=== PATIENT | male | born 1975 | race African-American/Black ===

== ENCOUNTER 2017-12-26 21:42 | Inpatient (IN) | payer BC ==
[2017-12-26 22:32] LABS: Absolute Lymphocytes (CBC) 1.8 K/uL (0.7-4.9); Absolute Monocytes 0.6 K/uL (0.1-1.3); Absolute Neutrophil 7.9 K/uL (1.8-8.0); Basophils % 1.4 % (0-1.3); Eosinophils % 4.4 % (0-4.4); Hematocrit 30.7 % (39.6-49.0); Lymphocytes % 16.2 % (15.3-44.8); MCH 33.3 pg (27.0-35.0); MCV 97.2 fL (80-100); MPV 8.8 fL (7.6-11.3); Monocytes % 5.4 % (3.3-12.3); RBC Red Blood Cell Count 3.16 M/uL (4.33-5.43)
[2017-12-26] MEDS ORDERED: FUROSEMIDE 40 MG/4 ML VIAL ONE (22:33)
[2017-12-26] MEDS ORDERED: ENALAPRILAT 1.25 MG/ML VIAL IV ONE (22:33)
[2017-12-26 22:34] LABS: Protime INR 1.12
[2017-12-26 22:51] LABS: Bilirubin Direct 0.2 mg/dL (0-0.2); Bilirubin Total 0.9 mg/dL (0.2-1.0); Magnesium 1.7 mg/dL (1.8-2.4); Potassium 3.6 mmol/L (3.5-5.1); Protein, Total 6.6 g/dL (6.4-8.2); Troponin (Emerg Dept Use Only) 0.04 ng/mL (0.0-0.045)
[2017-12-26 22:53] LABS: Urine Blood 2+ (NEG); Urine Glucose NEGATIVE (NEG); Urine Protein 3+ (NEG); Urine Specific Gravity 1.025 (1.005-1.030)
--- NOTE | 2017-12-27 00:46 | EDPHYS ---
Physician Documentation [facility] Name: Fredy Acosta Age: 42 yrs Sex: Male : 1975 Arrival Date: 12/26/2017 Time: 21:46 Bed 2 Private MD: Tony Bradley ED Physician Duncan Scott HPI: 12/27 00:37 This 42 yrs old Black Male presents to ER via Wheelchair with complaints of Chest Pain, gs Shortness Of Breath. 00:37 The patient or guardian reports chest pain that is located primarily in the anterior gs chest wall. Onset: yesterday. The pain does not radiate. Associated signs and symptoms: Pertinent positives: shortness of breath, Pertinent negatives: abdominal pain. The chest pain is described as a heaviness. Duration: The patient or guardian reports multiple episodes, that wax and wane, with no pattern. Modifying factors: The symptoms are alleviated by nothing. the symptoms are aggravated by exertion. Severity of pain: At its worst the pain was mild in the emergency department the pain is unchanged. The patient has experienced similar episodes in the past, a few times. Historical: - Allergies: 12/26 22:04 No Known Allergies; aj - Home Meds: 22:04 amlodipine 5 mg tab 1 tab once daily [Active]; insulin pen injection [Active]; aj lisinopril 10 mg Oral tab 1 tab once daily [Active]; - PMHx: 22:04 Anxiety; Diabetes - IDDM; Hypertension; aj - PSHx: 22:04 Knee surgery; aj - Immunization history:: Adult Immunizations up to date. - Social history:: Smoking status: Patient/guardian denies using tobacco. - Ebola Screening: : Patient negative for fever greater than or equal to 101.5 degrees Fahrenheit, and additional compatible Ebola Virus Disease symptoms Patient denies exposure to infectious person Patient denies travel to an Ebola-affected area in the 21 days before illness onset No symptoms or risks identified at this time. ROS: 12/27 00:37 All other systems are negative. gs Exam: 00:37 Head/Face: Normocephalic, atraumatic. Eyes: Pupils equal round and reactive to light, gs extra-ocular motions intact. Lids and lashes normal. Conjunctiva and sclera are non-icteric and not injected. Cornea within normal limits. Periorbital areas with no swelling, redness, or edema. ENT: Nares patent. No nasal discharge, no septal abnormalities noted. Tympanic membranes are normal and external auditory canals are clear. Oropharynx with no redness, swelling, or masses, exudates, or evidence of obstruction, uvula midline. Mucous membranes moist. Neck: Trachea midline, no thyromegaly or masses palpated, and no cervical lymphadenopathy. Supple, full range of motion without nuchal rigidity, or vertebral point tenderness. No Meningismus. Chest/axilla: Normal chest wall appearance and motion. Nontender with no deformity. No lesions are appreciated. 00:37 Respiratory: Lungs have equal breath sounds bilaterally, clear to auscultation and percussion. No rales, rhonchi or wheezes noted. No increased work of breathing, no retractions or nasal flaring. Abdomen/GI: Soft, non-tender, with normal bowel sounds. No distension or tympany. No guarding or rebound. No evidence of tenderness throughout. Back: No spinal tenderness. No costovertebral tenderness. Full range of motion. 00:37 Skin: Warm, dry with normal turgor. Normal color with no rashes, no lesions, and no evidence of cellulitis. MS/ Extremity: Pulses equal, no cyanosis. Neurovascular intact. Full, normal range of motion. Neuro: Awake and alert, GCS 15, oriented to person, place, time, and situation. Cranial nerves II-XII grossly intact. Motor strength 5/5 in all extremities. Sensory grossly intact. Cerebellar exam normal. Normal gait. 00:37 Constitutional: The patient appears alert, awake. 00:37 Cardiovascular: Rate: tachycardic, Rhythm: regular, Pulses: no pulse deficits are appreciated, Heart sounds: normal. 00:37 Cardiovascular: Edema: 2+ edema to level of left midcalf and right midcalf. 00:37 ECG was reviewed by the Attending Physician. Vital Signs: 12/26 22:04 BP 186 / 119; Pulse 109; Resp 26; Temp 99.6; Pulse Ox 97% on R/A; Weight 108.86 kg; aj Height 5 ft. 7 in. (170.18 cm); 22:24 BP 170 / 110; Pulse 104; Resp 26; Pulse Ox 93% on R/A; aa1 23:20 BP 152 / 94; Pulse 100; Resp 22; Pulse Ox 96% on R/A; aa1 23:57 BP 156 / 96; Pulse 98; Resp 22; Pulse Ox 96% on R/A; aa1 12/27 00:30 BP 157 / 103; Pulse 96; Resp 22; Pulse Ox 96% on R/A; aa1 01:20 BP 150 / 90; Pulse 93; Resp 24; Temp 98.9; Pulse Ox 95% on R/A; aa1 12/26 22:04 Body Mass Index 37.59 (108.86 kg, 170.18 cm) aj MDM: 12/26 22:11 Patient medically screened. 12/27 00:37 Differential diagnosis: acute myocardial infarction, coronary artery disease congestive gs heart failure pneumonia. Data reviewed: vital signs, nurses notes. Response to treatment: the patient's symptoms have resolved after treatment, the patient's pain is gone, and as a result, I will admit patient. 12/26 22:14 Order name: Basic Metabolic Panel; Complete Time: 22:58 12/26 22:14 Order name: CBC with Diff; Complete Time: 22:58 12/26 22:14 Order name: LFT's; Complete Time: 22:58 12/26 22:14 Order name: Magnesium; Complete Time: 22:58 12/26 22:14 Order name: NT PRO-BNP; Complete Time: 22:58 12/26 22:14 Order name: PT-INR; Complete Time: 22:58 12/26 22:14 Order name: Troponin (emerg Dept Use Only); Complete Time: 22:58 12/26 22:14 Order name: XRAY Chest (1 view) 12/26 22:14 Order name: EKG; Complete Time: 22:14 12/26 22:14 Order name: Cardiac monitoring; Complete Time: 22:24 12/26 22:33 Order name: Urine Dipstick--Ancillary (enter results); Complete Time: 22:58 [facility] 12/27 00:50 Order name: CT Chest For PE Angio 12/26 22:14 Order name: EKG - Nurse/Tech; Complete Time: 22:24 12/26 22:14 Order name: IV Saline Lock; Complete Time: 22:24 12/26 22:14 Order name: Labs collected and sent; Complete Time: 22:23 12/26 22:14 Order name: O2 Per Protocol; Complete Time: : 12/26 22:14 Order name: O2 Sat Monitoring; Complete Time: 12/26 21: Order name: Urine Dipstick-Ancillary (obtain specimen); Complete Time: : EC:37 Rate is 109 beats/min. Rhythm is regular. NV interval is normal. QRS interval is gs normal. QT interval is normal. T waves are Flattened. Clinical impression: NSR w/ Non-specific ST/T Changes. Interpreted by me. Administered Medications: 12/26 22:34 Drug: Lasix 40 mg Route: IVP; Site: right antecubital; aa 12/27 02:05 Follow up: Urine output 4000 ml; Response: No adverse reaction aa 12/26 22:34 Drug: Enalaprilat 1.25 mg Route: IV; Rate: calculated rate; Site: right antecubital; aa 22:36 Follow up: Response: Blood pressure is lowered; IV Status: Completed infusion aa1 Disposition: 12/27/17 00:46 Hospitalization ordered by John Cronin for Inpatient Admission. Preliminary diagnosis are Heart failure, Chest pain, unspecified. - Bed requested for Telemetry/MedSurg (Inpatient). - Status is Inpatient Admission. aa1 - Condition is Stable. - Problem is new. - Symptoms have improved. UTI on Admission? No Signatures: Dispatcher [employer] EDMS Manuela Duarte RN RN Carolyn Morrison RN RN [facility] Bhakti Cedillo RN RN aj Starr, Gregory, MD MD Corrections: (The following items were deleted from the chart) 12/27 00:53 00:46 Hospitalization Ordered by John Cronin MD for Inpatient Admission. Preliminary winsome diagnosis is Heart failure; Chest pain, unspecified. Bed requested for Telemetry/MedSurg (Inpatient). Status is Inpatient Admission. Condition is Stable. Problem is new. Symptoms have improved. UTI on Admission? No. 02:11 00:53 12/27/2017 00:46 Hospitalization Ordered by John Cronin MD for Inpatient aa1 Admission. Preliminary diagnosis is Heart failure; Chest pain, unspecified. Bed requested for Telemetry/MedSurg (Inpatient). Status is Inpatient Admission. Condition is Stable. Problem is new. Symptoms have improved. UTI on Admission? No. mw
--- NOTE | 2017-12-27 00:46 | ER ---
Nurse's Notes [facility] Name: Fredy Acosta Age: 42 yrs Sex: Male : 1975 Arrival Date: 12/26/2017 Time: 21:46 Bed 2 Private MD: Tony Bradley Diagnosis: Heart failure;Chest pain, unspecified Presentation: 12/26 22:03 Presenting complaint: Patient states: SOB, cough, chest tightness for 1 week. Reports aj swelling in feet and legs. Transition of care: patient was not received from another setting of care. Onset of symptoms was December 16, 2017. Risk Assessment: Do you want to hurt yourself or someone else? Patient reports no desire to harm self or others. Initial Sepsis Screen: Does the patient meet any 2 criteria? RR > 20 per min. HR > 90 bpm. Does the patient have a suspected source of infection? Yes: Productive cough/pneumonia. Care prior to arrival: None. 22:03 Method Of Arrival: Wheelchair aj 22:03 Acuity: NGA 3 aj Triage Assessment: 22:04 General: Appears in no apparent distress. uncomfortable, obese, Behavior is calm, aj cooperative, appropriate for age. Pain: Complains of pain in chest. Neuro: Level of Consciousness is awake, alert, obeys commands, Oriented to person, place, time, situation, Appropriate for age. Cardiovascular: Capillary refill < 3 seconds in bilateral fingers Patient's skin is warm and dry. Edema is 2+ to left midcalf, left ankle, left foot, right midcalf, right ankle and right foot. Respiratory: Reports shortness of breath cough that is productive, pain with cough Airway is patent Respiratory effort is even, unlabored, Respiratory pattern is symmetrical, tachypnea Breath sounds are coarse bilaterally. Derm: Skin is intact, is healthy with good turgor, Skin is pink, warm \T\ dry. normal. Historical: - Allergies: 22:04 No Known Allergies; aj - Home Meds: 22:04 amlodipine 5 mg tab 1 tab once daily [Active]; insulin pen injection [Active]; aj lisinopril 10 mg Oral tab 1 tab once daily [Active]; - PMHx: 22:04 Anxiety; Diabetes - IDDM; Hypertension; aj - PSHx: 22:04 Knee surgery; aj - Immunization history:: Adult Immunizations up to date. - Social history:: Smoking status: Patient/guardian denies using tobacco. - Ebola Screening: : Patient negative for fever greater than or equal to 101.5 degrees Fahrenheit, and additional compatible Ebola Virus Disease symptoms Patient denies exposure to infectious person Patient denies travel to an Ebola-affected area in the 21 days before illness onset No symptoms or risks identified at this time. Screenin:35 Abuse screen: Denies injuries from another. Abuse screen: Denies threats or abuse. aa1 Nutritional screening: No deficits noted. Tuberculosis screening: No symptoms or risk factors identified. Fall Risk None identified. Assessment: 22:35 General: Appears in no apparent distress. comfortable, Behavior is calm, cooperative, aa1 appropriate for age. Pain: Complains of pain in chest Pain does not radiate. Pain Quality of pain is described as pressure, Pain began 1 day ago. Is intermittent, Aggravated by increased activity, laying flat. Neuro: Level of Consciousness is awake, alert, obeys commands, Oriented to person, place, time, situation, Gait is steady, Speech is normal. Cardiovascular: Reports chest pain, shortness of breath, on exertion and when laying flat Heart tones S1 S2 present Capillary refill < 3 seconds Clubbing of nail beds is absent JVD is absent Patient's skin is warm and dry. Edema is 2+ to left ankle, left foot, left toes, right ankle, right foot and right toes Rhythm is regular. Respiratory: Reports shortness of breath on exertion Airway is patent Respiratory effort is even, unlabored, Respiratory pattern is regular, symmetrical, Breath sounds are coarse bilaterally. GI: No signs and/or symptoms were reported involving the gastrointestinal system. : No signs and/or symptoms were reported regarding the genitourinary system. EENT: No signs and/or symptoms were reported regarding the EENT system. Derm: Skin is intact, is healthy with good turgor, Skin is pink, warm \T\ dry. Musculoskeletal: Circulation, motion, and sensation intact. Capillary refill < 3 seconds, Swelling present in right foot and left foot. 23:21 Reassessment: Patient appears in no apparent distress at this time. Patient and/or aa1 family updated on plan of care and expected duration. Pain level reassessed. Patient is alert, oriented x 3, equal unlabored respirations, skin warm/dry/pink. Awaiting provider reassessment. 12/27 01:17 Reassessment: Patient appears in no apparent distress at this time. Patient and/or aa1 family updated on plan of care and expected duration. Pain level reassessed. Patient is alert, oriented x 3, equal unlabored respirations, skin warm/dry/pink. Bed assignment received. Awaiting admission orders from Dr. Cronin. 01:25 Reassessment: Pt taken to CT. aa1 02:07 Reassessment: Patient appears in no apparent distress at this time. Patient is alert, aa1 oriented x 3, equal unlabored respirations, skin warm/dry/pink. Report given to Prudence on 4th floor. Vital Signs: 12/26 22:04 BP 186 / 119; Pulse 109; Resp 26; Temp 99.6; Pulse Ox 97% on R/A; Weight 108.86 kg; aj Height 5 ft. 7 in. (170.18 cm); 22:24 BP 170 / 110; Pulse 104; Resp 26; Pulse Ox 93% on R/A; aa1 23:20 BP 152 / 94; Pulse 100; Resp 22; Pulse Ox 96% on R/A; aa1 23:57 BP 156 / 96; Pulse 98; Resp 22; Pulse Ox 96% on R/A; aa1 12/27 00:30 BP 157 / 103; Pulse 96; Resp 22; Pulse Ox 96% on R/A; aa1 01:20 BP 150 / 90; Pulse 93; Resp 24; Temp 98.9; Pulse Ox 95% on R/A; aa1 12/26 22:04 Body Mass Index 37.59 (108.86 kg, 170.18 cm) ED Course: 12/26 21:46 Patient arrived in ED. ds1 21:47 Tony Bradley MD is Private Physician. ds1 21:59 Duncan Scott MD is Attending Physician. gs 22:00 Patient maintains SpO2 saturation greater than 95% on room air. aa1 22:04 Triage completed. aj 22:04 Arm band placed on left wrist. Patient placed in an exam room. aj 22:06 EKG completed in triage. Results shown to MD. aj 22:08 Initial lab(s) drawn, by ED staff, sent to lab. EKG done, by ED staff, reviewed by aa1 Duncan Scott MD. Inserted saline lock: 20 gauge in right antecubital area, using aseptic technique. 22:10 Patient has correct armband on for positive identification. Bed in low position. Call aa1 light in reach. ekg monitor on. Pulse ox on. NIBP on. 22:23 Carolyn Morrison, RN is Primary Nurse. aa1 22:51 XRAY Chest (1 view) In Process Unspecified. EDMS 12/27 00:45 John Cronin MD is Hospitalizing Provider. gs 01:23 No provider procedures requiring assistance completed. Patient admitted, IV remains in aa1 place. 01:[address] via stretcher. kw1 01:48 CT completed. Patient tolerated procedure well. Patient moved back from CT. kw1 Administered Medications: 12/26 22:34 Drug: Lasix 40 mg Route: IVP; Site: right antecubital; aa1 12/27 02:05 Follow up: Urine output 4000 ml; Response: No adverse reaction aa1 12/26 22:34 Drug: Enalaprilat 1.25 mg Route: IV; Rate: calculated rate; Site: right antecubital; aa1 22:36 Follow up: Response: Blood pressure is lowered; IV Status: Completed infusion aa1 Output: 12/27 02:05 Urine: 4000ml; Total: 4000ml. aa1 Outcome: 00:46 Decision to Hospitalize by Provider. 02:10 Admitted to Tele accompanied by tech, family with patient, via wheelchair, room 428, aa1 with chart, Report called to Prudence 02:10 Condition: stable 02:10 Instructed on the need for admit, Demonstrated understanding of instructions. 02:11 Patient left the ED. aa1 Signatures: Dispatcher [employer] EDPR Carolyn Morrison RN RN aa1 Bhakti Cedillo RN RN aj Sanford, Demi ds1 Duncan Scott MD MD Aliya Nicholson kw1 Corrections: (The following items were deleted from the chart) 02:08 01:20 BP 150 / 90; Pulse 93bpm; Resp 24bpm; Pulse Ox 95% RA; aa1 aa1
[2017-12-27] MEDS ORDERED: ONDANSETRON 4 MG/2 ML VIAL IV PRN (01:38)
[2017-12-27] MEDS ORDERED: METOPROLOL TARTRATE 5 MG/5 ML INJ IV STA (04:16)
[2017-12-27] MEDS ORDERED: METOPROLOL TAR 25 MG TAB PO SCH (06:00)
[2017-12-27] MEDS: FUROSEMIDE 40 MG/4 ML VIAL IV SCH ×3 (06:08→16:46)
[2017-12-27] MEDS: METOPROLOL TAR 50 MG TAB PO SCH ×2 (06:09→20:12)
[2017-12-27 06:40] LABS: Absolute Lymphocytes (CBC) 1.6 K/uL (0.7-4.9); Absolute Monocytes 0.6 K/uL (0.1-1.3); Absolute Neutrophil 6.4 K/uL (1.8-8.0); Basophils % 1.2 % (0-1.3); Eosinophils % 5.8 % (0-4.4); Hematocrit 30.2 % (39.6-49.0); Lymphocytes % 17.1 % (15.3-44.8); MCH 32.8 pg (27.0-35.0); MCV 96.1 fL (80-100); Monocytes % 6.1 % (3.3-12.3); RBC Red Blood Cell Count 3.14 M/uL (4.33-5.43)
[2017-12-27 06:58] LABS: Albumin 2.8 g/dL (3.4-5.0); Bilirubin Total 0.8 mg/dL (0.2-1.0); Magnesium 1.8 mg/dL (1.8-2.4); Phosphorus 3.6 mg/dL (2.5-4.9); Potassium 3.5 mmol/L (3.5-5.1); Protein, Total 6.1 g/dL (6.4-8.2); Thyroid Stimulating Hormone 2.24 uIU/mL (0.360-3.740); Troponin I 0.03 ng/mL (0.0-0.045)
[2017-12-27] MEDS ORDERED: MAGNESIUM SULFATE 1 gm IVPB 1 GM/100 ML BAG IV ONE (07:54)
[2017-12-27] MEDS ORDERED: POTASSIUM CL SA 10 MEQ TAB PO ONE (07:54)
--- NOTE | 2017-12-27 08:02 | RAD REPORT ---
EXAM DESCRIPTION: CT - Chest For Pe Angio - 12/27/2017 4:33 am CLINICAL HISTORY: Chest pain, shortness of breath, cough, chest tightness A preliminary report was provided at the time of the study and reviewed prior to final report. COMPARISON: Portable chest December 26, CT angio chest April 2017 TECHNIQUE: Dynamically enhanced 3 mm thick images of the chest were obtained during administration o f approximately 150mL Isovue 370 IV contrast. Coronal and oblique MIP reconstruction images were gene rated and reviewed. Exam utilizes a protocol to evaluate the pulmonary arterial tree. All CT scans are performed using dose optimization technique as appropriate and may include automated exposure control or mA/KV adjustment according to patient size. FINDINGS: No pulmonary emboli are identified. The aorta as imaged shows no acute or suspicious finding. No pericardial thickening or effusion. Mild cardiomegaly is present. Left ventricle wall does appear thickened. No dense consolidation or suspicious mass lesions seen. Small bilateral pleural effusions are present , left greater than right. Interstitial thickening is present. There is hazy airspace opacification i n each lower lobe, more prominent on the left and in the left upper lobe. No cavitation. No pneumotho rax. No pleural based mass. No mediastinal or hilar suspicious masses. No chest wall masses or abnormal axillary lymphadenopathy. IMPRESSION: No pulmonary emboli identified. Interstitial and alveolar opacification present along with small bilateral pleural effusions.CHF/ vol ume overload favored over pneumonia. Mild cardiomegaly. Left ventricular myocardium does appear mildly thickened. This can be followed as clinically warranted.
--- NOTE | 2017-12-27 08:22 | RAD REPORT ---
EXAM DESCRIPTION: RAD - Chest Single View - 12/26/2017 10:51 pm CLINICAL HISTORY: Chest pain, shortness of breath COMPARISON: Portable December 26 TECHNIQUE: AP portable chest image was obtained 2240 hours . FINDINGS: Lung volumes are low compared to prior study. No dense consolidation seen. There is hazy a irspace opacification in the mid and lower left lung field and in the right lung base. Heart size is upper normal to slightly enlarged. Mild vascular engorgement is present. Trachea is midline. No pneum othorax or large pleural effusion. No gross bony abnormality seen. No acute aortic findings suspected . IMPRESSION: Hazy lung parenchymal opacification in both lung mcgee, worse on the left. Heart size is upper normal to mildly enlarged. Mild vascular engorgement. CHF/volume overload is favored over pneumonia.
[2017-12-27] MEDS: POTASSIUM CL SA 10 MEQ TAB PO SCH ×2 (08:38→20:12)
[2017-12-27] MEDS: ENOXAPARIN 40 MG/0.4 ML SQ SCH (08:38)
[2017-12-27] MEDS: ASPIRIN EC 81 MG TAB PO SCH (08:39)
[2017-12-27] MEDS ORDERED: LISINOPRIL 20 MG TAB PO SCH (09:00)
--- NOTE | 2017-12-27 09:58 | P.HP ---
Certification for Inpatient Patient admitted to: Inpatient With expected LOS: >2 Midnights Patient will require the following post-hospital care: None Practitioner: I am a practitioner with admitting privileges, knowledge of patient current condition, hospital course, and medical plan of care. Services: Services provided to patient in accordance with Admission requirements found in Title 42 Section 412.3 of the Code of Federal Regulations Patient History Date of Service: 12/27/17 Reason for admission: Shortness of breath History of Present Illness: Patient is a 42-year-old gentleman who presents to the emergency room with difficulty breathing. Patient was in the hospital in April with similar complaints. At that time he had an echocardiogram which did not reveal any cardiac dysfunction. He had been doing better since he was home however, over the last few weeks he has noticed that he has been more and more short of breath. He has had more stress in his life lately. He has been working on a promotion which she has obtained and he is going to have more responsibilities at his job. He also has been taking some ibuprofen. Patient's workup in the emergency room revealed that he has significant proteinuria. He also had no other abnormality that was noted on his chest x-ray. Patient's CT scan of the chest however does reveal some interstitial and alveolar opacifications, and per radiology report they thought this was more indicative of congestive heart failure. Patient did have some noted clubbing of his fingernails. And along with his protein urea I would be concerned of pulmonary renal diseases like Goodpasture syndrome or Nidia's granulomatosis. Will get Nephrology consultation along with Pulmonary consultation to further evaluate patient. Will ask him to refrain from ibuprofen. We will start him on an AGNIESZKA inhibitor. He will need to get another eval by Cardiology to see if there is any benefit of doing another echocardiogram. At this time he will be admitted to the hospital for further evaluation. Allergies No Known Allergies Allergy (Verified 05/04/17 23:21) Home Medications: Insulin Glargine,Hum.rec.anlog [Byron Perez] 80 unit SQ DAILY 05/04/17 Amlodipine [Norvasc*] 10 mg PO DAILY #30 tab 05/05/17 Aspirin [Aspirin EC 81 MG] 81 mg PO DAILY #90 tablet. 05/05/17 Lisinopril 40 mg PO DAILY 12/27/17 - Past Medical/Surgical History Has patient received pneumonia vaccine in the past: No Diabetic: Yes -: Hypertension -: Diabetes mellitus type 2 -: Depression -: Anxiety -: Right knee surgery Psychosocial/ Personal History: The patient is . He has 4 children. 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 moist/pink, EOMI, Sclerae nonicteric Neck: Supple, 2+ carotid pulse no bruit, No LAD, Without JVD or thyroid abnormality Respiratory: Clear to auscultation bilaterally, Normal air movement Cardiovascular: Regular rate/rhythm, Normal S1 S2, No murmurs Gastrointestinal: Normal bowel sounds, Soft and benign, Non-distended, No tenderness Musculoskeletal: No clubbing, No swelling, No tenderness Integumentary: No rashes Neurological: Normal gait, Normal speech, Normal strength at 5/5 x4 extr, Normal tone, Sensation intact, Cranial nerves 3-12 intact, Normal affect Lymphatics: No axilla or inguinal lymphadenopathy - Studies Laboratory Data (last 24 hrs) 12/26/17 22:16: PT 13.2 H, INR 1.12 12/26/17 22:16: WBC 10.9, Hgb 10.5 L, Hct 30.7 L, Plt Count 262 12/26/17 22:16: Sodium 145, Potassium 3.6, BUN 26 H, Creatinine 1.20, Glucose 107 H, Magnesium 1.7 L, Total Bilirubin 0.9, AST 35, ALT 35, Alkaline Phosphatase 67 Assessment & Plan - Plan Assessment: 1. Shortness of breath 2. Proteinuria 3. Clubbing of the extremities 4. History of hypertension 5. History of type 2 diabetes 6. Anemia, normocytic normochromic 7. Elevated BPNP 8. Hypoalbuminemia Plan: 1. cardiology consultation 2. 24 hr urine for protein 3. Strict blood pressure and blood sugar control 4. pulmonary and nephrology consultation 5. Renal ultrasound 6. Workup anemia 7. GI and DVT prophylaxis Discharge Plan: Home Plan to discharge in: Greater than 2 days - Advance Directives Does patient have a Living Will: No Does patient have a Durable POA for Healthcare: No - Code Status/Comfort Care Code Status Assessed: Yes Code Status: Full Code Critical Care: No Time Spent Managing PTS Care (In Minutes): 50
[2017-12-27] MEDS: LISINOPRIL 20 MG TAB PO SCH (11:16)
[2017-12-27] MEDS: AMLODIPINE 10 MG TAB PO SCH (11:49)
--- NOTE | 2017-12-27 12:20 | RAD REPORT ---
EXAM DESCRIPTION: RAD - Chest Single View - 12/27/2017 11:50 am CLINICAL HISTORY: Pneumonia COMPARISON: CT chest same date, portable chest December 26 TECHNIQUE: AP portable chest image was obtained 1137 hours . FINDINGS: Lung volumes are relatively low. Heart size is upper normal. Central vasculature and lung markings are prominent. There is hazy interstitial and some patchy alveolar opacification in each low er lung field. Trachea is midline. No pneumothorax or large pleural effusion. Costophrenic angle blun ting is present. Earlier CT study showed pleural effusions. IMPRESSION: Hazy bilateral lung base opacification left greater than right. Chest film appearance suggest failure or volume overload. Pneumonia changes can be present and superi mposed.
[2017-12-27 15:57] LABS: Urine Protein/Creatinine Ratio 5.33 ratio (<0.15)
--- NOTE | 2017-12-27 16:46 | PN ---
Date of Progress Note: 12/27/2017 Subjective: The patient is seen and examined, chart reviewed, case discussed with RN and Harvinder. The patient is complaining of shortness of breath and edema, however, improved. Review of Systems: Negative except as above. Medications: List reviewed. Physical Examination: Vital Signs: Temperature 98.5, heart rate 86, blood pressure 163/106, respirations 18, O2 98% on jordin m air. GENERAL: Awake, alert, and oriented x3. No acute distress. Obese male. CV: S1, S2. No murmurs. Regular rate and rhythm. Peripheral pulses present. Respiratory: Diminished breath sounds bilaterally. Some crackles present. No wheezing. Gastrointestinal: Abdomen is soft, nontender, nondistended. Positive bowel sounds. Extremities: No clubbing, cyanosis. The patient does have 2+ lower extremity edema. Neurologic: Nonfocal. Laboratory Data: Sodium 146, potassium 3.5, chloride 109, CO2 32, BUN 24, creatinine 1.2, glucose 11 9. Hemoglobin A1c 4.8, calcium 8.2, TSH 2.24. Lipid panel within normal limits. WBC 9.1, H and H 1 0.3, 30.2, platelets 267. CT angio shows no PE, bilateral pleural effusions, CHF, volume overload. Left ventricular myocardium does appear mildly thickened, mild cardiomegaly, interstitial alveolar op acification. Assessment And Plan: A 42-year-old male with; 1.Shortness of breath. 2.Proteinuria. 3.Clubbing of the extremities. 4.History of hypertension. 5.History of diabetes mellitus type 2. 6.Anemia, normocytic normochromic. 7.Hypoalbuminemia. 8.Elevated BNP. Plan: Nephrology and Cardiology consultation. Blood pressure is not well controlled. We will resum e home medications. Add p.r.n. IV medications. Follow up renal ultrasound. GI and DVT prophylaxis. We need to rule out other conditions such as Goodpasture's and Nidia's [facility] /[place] Voice ID: [id number] Report ID: [id number]
--- NOTE | 2017-12-27 19:27 | CON ---
Date of Consultation: 12/27/2017 Consulting Physician: Dr. Hastings. Reason For Consultation: Proteinuria, and pulmonary renal syndrome. History Of Present Illness: This is a pleasant 42-year-old black gentleman with significant past med ical history of hypertension, hyperlipidemia, diabetes diagnosis in 2005, no retinopathy, no neuropat hy, the patient was in his regular state of health. The patient was admitted early this year with ch est tightness. At that time, was treated conservatively. Workup was negative for PE. Again this ti me patient came complaining from leg swelling, chest tightness, and shortness of breath with decrease d exertional tolerance. Workup for PE including CT angio was negative, but did show thickness of the heart valve. Also workup showed interstitial lung disease. The patient had +3 proteinuria with nor mal GFR. For that reason, we have been consulted. The patient denied taking nonsteroidal on a regul ar basis. The patient is not aware about kidney problem, had protein, foamy urine significantly as b y the patient. No hesitancy. No recent exposure to any nonsteroidal. As I mentioned, the patient t ook it just randomly. Patient had contrast on this admission, and the patient been on AGNIESZKA inhibitor. According to the patient, 2 weeks ago, had the same symptoms. At that time, he took amoxicillin, i mproved partially, then bounced back again with shortness of breath, chest tightness and leg swelling . For that reason, reported to the hospital. Primary workup in the hospital as I mentioned, CT was negative for PE, but positive for interstitial lung disease with the proteinuria. Past Medical History: Includes, 1.Diabetes. 2.Hypertension. Diabetes since 2005. No retinopathy no neuropathy. Allergies: NO KNOWN DRUG ALLERGIES. Social History: Denies smoking, denies drinking, denies drug abuse. Family History: Positive for hypertension and diabetes. Review of Systems: Head and Neck: No red eye. No ear pain. GI: No nausea, no vomiting. : Has polyuria, has nocturia, has foamy urine, no hematuria. SEO ASSOCIATE: Not applicable. Respiratory: Has shortness of breath. Has orthopnea. Also the patient had chest tightness. No neur opathy. Cardiovascular: Has decreased exertional tolerance. Had leg edema. Musculoskeletal: No joint pain. Endocrine: No polydipsia. Skin: No rash. Home Medications: Include, 1.Lisinopril. 2.Insulin. 3.Aspirin. 4.Amlodipine. Current Medication: 1.Tylenol. 2.Lasix 40 b.i.d. 3.Aspirin. 4.Lovenox. 5.Lisinopril. 6.Metoprolol. 7.KCl. Physical Examination: General: When I saw the patient, the patient was sitting in bed. Vital signs: Blood pressure of 158/100, pulse of 91. Chest: Crackles bilateral base. Heart: S1, S2. Regular. Abdomen: Soft nontender extremity no edema. Neurological: Alert, and oriented x3. Nonfocal. Vascular exam: No carotid bruit. No renal bruit. The patient is obese. Laboratory Data: Sodium 146, potassium 3.5, bicarb 32, BUN 24 creatinine 1.2, hemoglobin A1c 4.8, ca lcium 8.2, phosphorus 3.6, magnesium 1.8. WBC 9.1, H and H 10.3/30.2, platelet 207, urinalysis +3 pr otein. Specific gravity of 1.025. +2 blood negative for RBC. Assessment And Plan: 1.Chronic kidney disease, protein uric with normal GFR exposed to contrast possibly secondary to swapna betes. Nephropathy on the presence of the anemia 1. The finding on the CTU with the lung finding an d the cardiac finding, light chain disease/amyloid/pulmonary renal syndrome need to be ruled out. I am going to go ahead and send for whole serology. We will get renal ultrasound to evaluate for kidne y, and I agree with the diuresis. I agree to continue AGNIESZKA inhibitor. We will quantify the protein c reatinine. We will send for SPEP and Angiopep. 2.Given contrast exposure we will follow the creatinine for the next 48 hours. 3.Proteinuria as above. 4.Hypertension, uncontrolled. I cannot go ahead, agree with adding Lasix. I will add calcium chann el candace. Continue AGNIESZKA inhibitor, and we will follow up. 5.Hypokalemia with presence of black rays and hypertension. I am going to go ahead and send for Hald ol level, and will follow up. Continue diuresis on supplement. The patient will follow up the echo ardiogram to evaluate if there was any pulmonary hypertension. 6.Edema multifactorial secondary to the proteinuria/possible cardiac. Had echocardiogram before wit h ejection fraction of 48% giving the symptoms that the patient has. We will diurese the patient. W e will Cardiology evaluation giving the finding on the CT. We will get heart MRI to rule out the wor kup on support of amyloid. At that time will get fat tissue biopsy. 7.Interstitial lung disease. We will follow up with Pulmonary. Thank you, Dr. Hastings for allowing us to participate in the care of your patient. MARTINE Voice ID: [id number] Report ID: [id number]
--- NOTE | 2017-12-27 21:15 | RAD REPORT ---
EXAM DESCRIPTION: US - Renal Ultrasound-Complete - 12/27/2017 9:00 pm CLINICAL HISTORY: Chronic kidney disease COMPARISON: Renal ultrasound April 2017 FINDINGS: The right kidney measures 13.5 x 6.9 x 6.0 cm. The left kidney measures 12.4 x 6.8 x 6.0 cm. Cortical thickness is normal. There is minimal increase in cortical echogenicity consistent with a mild medical renal disease. No hydronephrosis or suspicious renal mass. No bladder wall thickening or mass. No intraluminal stone or mass. IMPRESSION: Mild medical renal disease is evident. No hydronephrosis or suspicious mass. No other significant findings.
[2017-12-28] MEDS ORDERED: PHENAZOPYRIDINE 100MG TAB PO ONE ×2 (03:11→19:00)
[2017-12-28] MEDS ORDERED: CEFTRIAXONE/SWI 1gm 1 GM/10 ML SYR ONE (03:57)
[2017-12-28] MEDS ORDERED: CEFTRIAXONE 1 GM/50 ML BAG IV SCH (04:00)
[2017-12-28 04:04] LABS: Urine Appearance CLOUDY; Urine Bilirubin NEGATIVE (NEG); Urine Blood 3+ (NEG); Urine Color YELLOW; Urine Glucose NEGATIVE (NEG); Urine Protein 3+ (NEG); Urine Specific Gravity 1.015 (1.005-1.030); Urine Urobilinogen 0.2 mg/dL (0.2-1.0)
[2017-12-28 04:24] LABS: Urine Culture Reflex Order REFLEXED
[2017-12-28 04:26] LABS: Urine Bacteria >50 /HPF (NONE SEEN)
--- NOTE | 2017-12-28 06:54 | EKG ---
Test Date: 2017-12-26 Test Time: 22:05:09 I&C Tech: MEASUREMENT RESULTS: Intervals: Rate: 109 ND: 146 QRSD: 90 QT: 356 QTc: 479 [place]: P: 51 ND: 146 QRS: 63 T: 67 INTERPRETIVE STATEMENTS: Sinus tachycardia Possible Left atrial enlargement Cannot rule out Anterior infarct, age undetermined Abnormal ECG Compared to ECG 05/04/2017 10:59:37 Myocardial infarct finding now present Right-axis deviation no longer present T-wave abnormality no longer present Possible ischemia no longer present Electronically Signed On 12-28-17 06:51:26 CDT by Branden Tee
[2017-12-28 07:19] LABS: RBC Red Blood Cell Count 3.27 M/uL (4.33-5.43)
[2017-12-28 07:33] LABS: Albumin 2.9 g/dL (3.4-5.0); Ferritin 58.2 ng/mL (26-388); Folic Acid, (Folate) 6.8 ng/mL (3.1-17.5); Magnesium 1.8 mg/dL (1.8-2.4); Potassium 3.8 mmol/L (3.5-5.1)
[2017-12-28] MEDS: INSULIN GLARGINE 100 UNITS/ML SQ SCH (08:46)
[2017-12-28] MEDS: ENOXAPARIN 40 MG/0.4 ML SQ SCH (09:14)
[2017-12-28] MEDS: LISINOPRIL 20 MG TAB PO SCH (09:14)
[2017-12-28] MEDS: FUROSEMIDE 40 MG/4 ML VIAL IV SCH ×2 (09:14→16:27)
[2017-12-28] MEDS: ASPIRIN EC 81 MG TAB PO SCH (09:15)
[2017-12-28] MEDS: AMLODIPINE 10 MG TAB PO SCH (09:16)
[2017-12-28] MEDS: POTASSIUM CL SA 10 MEQ TAB PO SCH ×2 (09:16→20:43)
[2017-12-28] MEDS: METOPROLOL TAR 50 MG TAB PO SCH ×2 (09:16→20:44)
[2017-12-28 09:19] LABS: Rheumatoid Factor NEG (NEG)
[2017-12-28] MEDS ORDERED: CEFTRIAXONE 1 GM/NS 50 ML 1 GM/50 ML BAG IV SCH (12:00)
--- NOTE | 2017-12-28 12:43 | CON ---
Admitted on 12/27/2017, the patient was seen on 12/27/2017. Reason For Consultation: Congestive heart failure. History Of Present Illness: Mr. Acosta is a 42-year-old black male who has a history of congestive he art failure that is chronic and diastolic, has a history of hypertension, diabetes, anxiety, came in with shortness of breath, was found to have some mild CHF on chest x-ray. His BNP was 801. Creatinin e is 1.2. Hemoglobin of 10.3. Troponin was unremarkable. He came in hypertensive with blood pressur e 168/102. His last workup was in April of 2017. He had a normal ejection fraction, decreased lef t ventricular compliance. He had a normal Lexiscan then. He had some chest pain that is worse when he breathes. He was having also some problem with dysuria. A urinalysis is pending. Past Medical History: As stated above. Allergies: NONE. Review of Systems: Negative. Social History: Negative. Family History: Negative. Medications: At home include Norvasc, aspirin, insulin, lisinopril. Physical Examination: General: Mr. Acosta is obese, hypertensive. Mild respiratory distress. Mild dysuria. HEENT: Negative. Neck: Supple. No bruit, lymphadenopathy, JVD, or thyromegaly. Chest: Reveals some rales at the bases. Cardiac: Reveals regular rhythm and rate with an S4 gallops. Abdomen: Obese. Extremities: Revealed no clubbing, cyanosis, or edema. Impression And Plan: 1.Acute exacerbation of chronic diastolic congestive heart failure. 2.Hypertension. 3.Diabetes. 4.Possible urinary tract infection. 5.Anxiety. I will not repeat much cardiac workup on him at this point. I think he needs to have hi s medication continue and see what his urinalysis show. Add Lasix to his regimen when he goes home. I will continue to follow him. NB/MODL Voice ID: [id number] Report ID: [id number]
[2017-12-28] MEDS: ACETAMINOPHEN 500 MG TAB PO PRN ×2 (15:35→20:45)
--- NOTE | 2017-12-28 18:36 | PN ---
Date of Progress Note: 12/28/2017 Subjective: The patient is seen and examined. Chart reviewed and case discussed with RN. The patie nt is feeling better. No acute events overnight. Unfortunately, unable to have a cardiac MRI at [facility] facility. Review of Systems: Negative except as above. Medications: List reviewed. Physical Examination: Vital Signs: Temperature 98.2, heart rate 93, blood pressure 159/98, respirations 20, O2 96% on room air. General: Awake, alert, oriented x3, not in any acute distress. Obese male. CV: S1, S2. No murmurs. Respiratory: Moving air well bilaterally. Gastrointestinal: Abdomen is soft, nontender, nondistended. Positive bowel sounds. Extremities: No clubbing, cyanosis, edema. Neurologic: Nonfocal. Laboratory Data: Sodium 142, potassium 3.8, chloride 106, CO2 31, BUN 22, creatinine 1.2, glucose 14 6, calcium 8.2. Hemoglobin A1c 4.8%. Calcium 8.2, phosphorus 4, magnesium 1.8, iron 45, TIBC 270, t ransferrin 193, ferritin 58, albumin 2.9, vitamin B12 491, folate 6.8, PTH 145. Repeat UA: Positive nitrite, 2+ leukocyte esterase, 20-50 wbc, greater than 50 bacteria, 3+ protein. Rheumatoid factor negative. Hepatitis and HIV panel pending. Urine culture pending. Assessment And Plan: A 42-year-old male with: 1.Shortness of breath. 2.Proteinuria. 3.Acute exacerbation of congestive heart failure. 4.Essential hypertension. 5.History of diabetes mellitus type 2. Hemoglobin A1c is 4.8%. We will adjust insulin dose. 6.Normocytic normochromic anemia. Iron panel reviewed. 7.Hypoalbuminemia. 8.Edema, unclear etiology may be congestive heart failure versus other. 9.Thickened left ventricular myocardium. Unable to have a cardiac MRI done at this facility. Plan: We will continue diuresis. Blood pressure not well controlled. We will adjust medications. Appreciate Nephrology and Cardiology input. Workup pending including immunology and serology. Rule out amyloid light chain disease or other. Yesterday's chest x-ray shows some hazy bilateral lung bas e opacification suggesting volume overload. SA/MODL Voice ID: [id number] Report ID: [id number]
--- NOTE | 2017-12-28 19:26 | EKG ---
Test Date: 2017-12-28 Test Time: 08:04:38 Chief Electrician: AISHA MEASUREMENT RESULTS: Intervals: Rate: 99 MN: 134 QRSD: 94 QT: 372 QTc: 477 [place]: P: 56 MN: 134 QRS: 84 T: -8 INTERPRETIVE STATEMENTS: Normal sinus rhythm Possible Left atrial enlargement Nonspecific T wave abnormality Prolonged QT Abnormal ECG Compared to ECG 12/26/2017 22:05:09 T-wave abnormality now present Prolonged QT interval now present Sinus tachycardia no longer present Myocardial infarct finding no longer present Electronically Signed On 12-28-17 19:22:57 CDT by Branden Tee
[2017-12-28] MEDS ORDERED: HYDRALAZINE HCL 20 MG/ML VIAL IV PRN (23:53)
--- NOTE | 2017-12-29 02:44 | PN ---
Date of Progress Note: 12/28/2017 Chief Complaint: Fluid overload, proteinuria. History Of Present Illness: The patient has history of diabetes mellitus, hyperlipidemia, hypertensi on. He came to the hospital because of generalized weakness, chest tightness, and extremity edema. Workup was initiated to rule out PE, and cardiology consultation was requested for possible acute cor onary syndrome and congestive heart failure. The patient was found to have proteinuria and is on Las ix for fluid overload, is undergoing workup to rule out glomerulonephritis. Review of Systems: Denies fever, chills. He is complaining of leg edema, has some dyspnea on exertion. Physical Examination: Lungs: Clear to auscultation bilaterally. Heart: S1, S2. Abdomen: Soft, benign. Extremities: Edema. Laboratory Data: Hemoglobin 10.3, WBC 9.1, platelet count is 267,000. Sodium 146, potassium 3.5, ch loride 109, CO2 32, BUN 24, creatinine 1.2, glucose 119, calcium 8.2, magnesium 1.8, phosphorus 3.6. Impression And Plan: 1.Proteinuria, fluid overload, edema. The patient has history of diabetes mellitus with renal manif estation. The patient is undergoing workup to rule out glomerulonephritis. 2.Hypertension. Elevated blood pressure. Continue low-sodium diet. The patient has fluid overload . Continue Lasix and monitor fluid balance. Adjust medication as needed. 3.The patient has history of diabetes mellitus, and he may need renal biopsy to rule out glomerulone phritis, likely there is some element of diabetic kidney disease. Continue insulin for blood glucose control. 4.Renal ultrasound showed mild medical renal disease. There is cortical echogenicity consistent wit h mild medical renal disease. Right kidney 13.5 cm in length and left kidney 12.4 cm in length. The re is no hydronephrosis. I recommend to screen for HIV, hepatitis, and to rule out monoclonal gammop athy of unknown significance. EB/MODL Voice ID: [id number] Report ID: [id number]
[2017-12-29 04:58] LABS: Albumin 2.9 g/dL (3.4-5.0); Magnesium 1.9 mg/dL (1.8-2.4); Phosphorus 4.3 mg/dL (2.5-4.9); Potassium 4.1 mmol/L (3.5-5.1)
[2017-12-29] MEDS: CEFTRIAXONE/SWI 1gm 1 GM/10 ML SYR IV SCH (08:54)
[2017-12-29] MEDS: FUROSEMIDE 40 MG/4 ML VIAL IV SCH (08:54)
[2017-12-29] MEDS: LISINOPRIL 20 MG TAB PO SCH (08:54)
[2017-12-29] MEDS: METOPROLOL TAR 50 MG TAB PO SCH ×2 (08:55→20:58)
[2017-12-29] MEDS: POTASSIUM CL SA 10 MEQ TAB PO SCH ×2 (08:55→20:58)
[2017-12-29] MEDS: INSULIN GLARGINE 100 UNITS/ML SQ SCH (08:56)
[2017-12-29] MEDS: ASPIRIN EC 81 MG TAB PO SCH (08:58)
[2017-12-29] MEDS: ENOXAPARIN 40 MG/0.4 ML SQ SCH (08:58)
[2017-12-29] MEDS: AMLODIPINE 10 MG TAB PO SCH (08:59)
[2017-12-29] MEDS: TRAMADOL HCL 50 MG TAB PO PRN ×2 (09:43→20:56)
[2017-12-29] MEDS ORDERED: GLUCAGON 1 MG/VIAL IM PRN (14:24)
[2017-12-29] MEDS ORDERED: D50W 25 GM/50 ML SYRINGE IV PRN (14:24)
--- NOTE | 2017-12-29 15:50 | RAD REPORT ---
EXAM DESCRIPTION: RAD - Chest Pa And Lat (2 Views) - 12/29/2017 3:43 pm CLINICAL HISTORY: Shortness of breath, CHF COMPARISON: December 27 TECHNIQUE: PA and lateral views of the chest were obtained. FINDINGS: The lungs are slightly underinflated. Vasculature is within normal limits. The interstitia l and patchy alveolar opacity seen on the December 27 study have resolved or mostly resolved. Hear t size is normal. Trachea is midline. No pleural effusion or pneumothorax seen. No acute bony findin g noted. No aortic abnormality. IMPRESSION: Complete or near complete resolution of the CHF/volume overload findings seen December 27.
[2017-12-29] MEDS: INSULIN -REGULAR HUMAN 50 UNIT/0.5 ML ML SQ SCH ×2 (16:30→21:00)
[2017-12-29] MEDS: FUROSEMIDE 40 MG TABLET PO SCH (16:56)
--- NOTE | 2017-12-29 18:04 | P.PN ---
Subjective Date of Service: 12/29/17 Primary Care Provider: Dr. Webber Chief Complaint: Shortness of breath Subjective: Improving Physical Examination - Vital Signs Temperature: 97.2 F Blood Pressure: 133/76 Pulse: 88 Respirations: 18 Pulse Ox (%): 96 - Physical Exam General: Alert, In no apparent distress, Oriented x3, Cooperative HEENT: Atraumatic Neck: Supple Respiratory: Clear to auscultation bilaterally, Normal air movement Cardiovascular: Normal pulses, Regular rate/rhythm Gastrointestinal: Normal bowel sounds, Soft and benign, Non-distended, No tenderness, No masses, No rebound, No guarding Musculoskeletal: No erythema, No tenderness, No warmth Integumentary: No tenderness/swelling, No erythema, No warmth, No cyanosis Neurological: Normal speech, Normal strength at 5/5 x4 extr, Normal tone, Normal affect - Studies Medications List Reviewed: Yes Assessment & Plan Discharge Plan: Home Plan to discharge in: 24 Hours Physician Review Additional Text: Impression: Shortness of breath likely acute on chronic CHF likely diastolic dysfunction Proteinuria suspect nephrotic syndrome Hypertension Diabetes mellitus type 2 controlled, insulin-dependent Anemia Edema to the lower extremity likely CHF related. Thickened left ventricle Plan: Overall improved. Diuretic therapy adjusted. Suspect CHF. Case discussed with nephrology. Patient has nephrotic syndrome. Await recommendations from pulmonology. X-ray shows improvement. Will discuss with cardiology as well. Patient may not require a large amount of insulin therapy at discharge. Will adjust blood pressure medication. Anticipate possible discharge tomorrow. Time Spent Managing Pts Care (In Minutes): 55
[2017-12-30 03:23] LABS: Anti-Cardiolipin IgA Antibody <11 APL (<=11)
--- NOTE | 2017-12-30 04:06 | CON ---
Date of Consultation: 12/29/2017 Reason For Consultation: The patient feeling much better. Shortness of breath has been subsided. S welling has been subsided. Physical Examination: Vital Signs: Blood pressure of 133/78, pulse of 88. The patient had good urine output. The patient lost 2 pounds from yesterday. Chest: Clear to auscultation. Heart: S1, S2. Regular. Abdomen: Soft, nontender. Extremities: Trace edema. Laboratory Data: H and H 10.3/30.2. Sodium 145, potassium 4.1, bicarb 31, BUN 23, creatinine 1.2, c alcium 8.5, phos 4.3, magnesium 1.9. SPEP still pending. PTH 145. Cortisol of 20. Plasma aldoster one is still pending; wbc's in the urine of 50, rbc's of 20. Protein-creatinine of 5. UPEP still pe nding. Serology still pending. Medications: Current medications the patient is on include: 1.Norvasc 10 mg. 2.Lisinopril 40. 3.Metoprolol. 4.Ceftriaxone. 5.Lasix. 6.Zofran. 7.Insulin. Assessment And Plan: 1.Chronic kidney disease, with nephrotic range of proteinuria, still pending. Workup possible secon erinn to diabetes to rule out any pulmonary or renal, waiting for pulmonary input, currently better vo lume control. I can switch the Lasix to p.o. We will follow up. 2.Congestive heart failure, diastolic dysfunction, secondary to hypertension. Follow up with Cardio logy. Continue diuresis. 3.Hypertension, uncontrolled, with the presence of the nephrotic range of proteinuria and hypokalemi a, plasma although still pending. I am going to start the patient on Aldactone, and we will follow u p the patient. 4.Diabetes as by primary. 5.Interstitial infiltration, possible pulmonary/renal, will follow up. 6.Hypokalemia. We will start the patient on spironolactone. DC potassium supplement. We will follo w up. [place] Voice ID: [id number] Report ID: [id number]
[2017-12-30 06:02] VITALS: BMI 36.6
[2017-12-30 06:55] LABS: Absolute Lymphocytes (CBC) 1.7 K/uL (0.7-4.9); Absolute Monocytes 0.5 K/uL (0.1-1.3); Absolute Neutrophil 6.2 K/uL (1.8-8.0); Basophils % 1.2 % (0-1.3); Eosinophils % 4.5 % (0-4.4); Hematocrit 30.7 % (39.6-49.0); Lymphocytes % 18.7 % (15.3-44.8); MCV 95.5 fL (80-100); MPV 9.5 fL (7.6-11.3); RBC Red Blood Cell Count 3.21 M/uL (4.33-5.43)
[2017-12-30 07:03] LABS: Albumin 2.7 g/dL (3.4-5.0); Phosphorus 3.8 mg/dL (2.5-4.9)
[2017-12-30] MEDS: INSULIN -REGULAR HUMAN 50 UNIT/0.5 ML ML SQ SCH ×2 (07:30→11:30)
[2017-12-30] MEDS ORDERED: SPIRONOLACTONE 25 MG TABLET PO SCH (09:00)
[2017-12-30] MEDS: LISINOPRIL 20 MG TAB PO SCH (09:36)
[2017-12-30] MEDS: CEFTRIAXONE/SWI 1gm 1 GM/10 ML SYR IV SCH (09:36)
[2017-12-30] MEDS: FUROSEMIDE 40 MG TABLET PO SCH (09:36)
[2017-12-30] MEDS: ASPIRIN EC 81 MG TAB PO SCH (09:36)
[2017-12-30] MEDS: AMLODIPINE 10 MG TAB PO SCH (09:36)
[2017-12-30] MEDS: METOPROLOL TAR 50 MG TAB PO SCH (09:36)
[2017-12-30] MEDS: ENOXAPARIN 40 MG/0.4 ML SQ SCH (09:36)
[2017-12-30 10:08] LABS: HIV 1/2 Antibody Diff Not indicated.; HIV AG/AB 4TH GEN Non-reactive (Non-reactive)
--- NOTE | 2017-12-30 10:52 | P.DS ---
Admission Date: 12/27/17 Discharge Date: 12/30/17 Primary Care Provider: Dr. Webber Disposition: ROUTINE DISCHARGE Discharge Condition: GOOD Reason for Admission: Shortness of breath Consultations: Nephrology-Dr. Blanton Cardiology-Dr. Tee Pulmonary-Dr. Flores Procedures: CT scan: COMPARISON: Portable chest December 26, CT angio chest April 2017 TECHNIQUE: Dynamically enhanced 3 mm thick images of the chest were obtained during administration of approximately 150mL Isovue 370 IV contrast. Coronal and oblique MIP reconstruction images were generated and reviewed. Exam utilizes a protocol to evaluate the pulmonary arterial tree. All CT scans are performed using dose optimization technique as appropriate and may include automated exposure control or mA/KV adjustment according to patient size. FINDINGS: No pulmonary emboli are identified. The aorta as imaged shows no acute or suspicious finding. No pericardial thickening or effusion. Mild cardiomegaly is present. Left ventricle wall does appear thickened. No dense consolidation or suspicious mass lesions seen. Small bilateral pleural effusions are present, left greater than right. Interstitial thickening is present. There is hazy airspace opacification in each lower lobe, more prominent on the left and in the left upper lobe. No cavitation. No pneumothorax. No pleural based mass. No mediastinal or hilar suspicious masses. No chest wall masses or abnormal axillary lymphadenopathy. IMPRESSION: No pulmonary emboli identified. Interstitial and alveolar opacification present along with small bilateral pleural effusions.CHF/ volume overload favored over pneumonia. Mild cardiomegaly. Left ventricular myocardium does appear mildly thickened. This can be followed as clinically warranted. Renal US: COMPARISON: Renal ultrasound April 2017 FINDINGS: The right kidney measures 13.5 x 6.9 x 6.0 cm. The left kidney measures 12.4 x 6.8 x 6.0 cm. Cortical thickness is normal. There is minimal increase in cortical echogenicity consistent with a mild medical renal disease. No hydronephrosis or suspicious renal mass. No bladder wall thickening or mass. No intraluminal stone or mass. IMPRESSION: Mild medical renal disease is evident. No hydronephrosis or suspicious mass. No other significant findings. Medical Problem List: Chest pain and Shortness of breath secondary to Acute on Chronic Diastolic Congestive Heart Failure. Proteinuria suspect Nephrotic range syndrome Hypertension DM Type 2 controlled on Insulin Anemia of Chronic disease Edema to the lower extremities related to CHF Thickened Left Ventricle noted on CT scan Obesity with BMI-36 UTI, Urine culture positive for E. Coli Suspect Obstructive Sleep Apnea Brief History of Present Illness: 42 yo AAM presented to the ER with chest pain and shortness of breath. He was admitted for further evaluation. Hospital Course: Patient presented with Chest pain and Shortness of breath secondary to Acute on Chronic Diastolic Congestive Heart Failure. He was given diuretic therapy with improvement. Repeat CXR showed resolution of edema. At discharge he will need to continue with a 1500 cc per day fluid restriction and AHA low salt diet. At discharge he has been started on Lasix 40 mg one pill daily and Aldactone 25 mg one pill daily. He will need to follow up with Nephrology and his PCP to further monitor and address. He will need to follow up with his PCP in one week to be cleared to go back to work. Patient was evaluated by Nephrology for Proteinuria suspicious for Nephrotic range syndrome. Lab is pending at discharge. He will need to follow up with Nephrology in 1-2 weeks to further monitor and address lab done in the Hospital. Recommendation is to recheck Lab-BMP in one week to monitor his progress. Patient has Hypertension. Medication has been adjusted for better control. At discharge he will continue with Norvasc 10 mg one pill daily, Lisinopril 40 mg one pill daily, and Metoprolol 50 mg one pill twice daily. Recommendation is to maintain BP less than 150/80. His medication may need further adjustment that can be done by Nephrology or his PCP. Patient has DM Type 2 that is very well controlled with a Hemoglobin A1c of 4.8. He is using Insulin long acting as needed. Blood sugars are well controlled off Insulin at this time. At discharge, I will recommend to HOLD his Insulin medication. He will need to continue with diet control. No medication is needed at this time. He will need to monitor his blood sugar at least twice daily. Recommendation is to maintain his blood sugar less than 140 fasting and less than 200 after meals. If his BP is consistently greater than 200, he will need to contact his PCP for further recommendations. He may need to restart his Insulin medication but at a reduced dosage. His PCP will need to further address. Education on Hypoglycemia will be provided. Patient has Anemia of Chronic disease. It has remained stable. Recommendation is to recheck Lab-CBC in one week to monitor his progress. Patient had Edema to the lower extremities related to CHF. This resolved with diuresis. He will need to continue with fluid restrictions and above medication- Lasix/Aldactone. He will need to monitor his weight daily. If his weight increases by more than 5 pounds in a day, he will need to contact his PCP for further recommendations. CT scan showed Thickened Left Ventricle. Patient was evaluated by Cardiology. No cardiac intervention was required as he recently has a cardiac workup in April 2017 which was unremarkable. This included ECHO and stress test. He will need to follow up with Cardiology in 1-2 weeks to see if further evaluation is required as an outpatient like a Cardiac MRI. He will also follow up with Nephrology to further address. Patient has Obesity with BMI-36. Diet and lifestyle modification education will be provided. Patient was found to have a UTI, Urine culture positive for E. Coli. At discharge he will continue with Cipro 500 mg one pill twice daily for 7 days. Recommendation on UTI prevention education will be provided. Patient may have underlying DEYSI. Recommendation is for the patient to follow up with Pulmonary as outpatient to assess. Vital Signs/Physical Exam: Temp Pulse Resp BP Pulse Ox 97.9 F 88 20 152/99 H 94 12/30/17 04:00 12/30/17 04:00 12/30/17 04:00 12/30/17 04:00 12/30/17 04:00 General: Alert, In no apparent distress, Oriented x3, Cooperative HEENT: Atraumatic Neck: Supple Respiratory: Clear to auscultation bilaterally, Normal air movement Cardiovascular: Normal pulses, Regular rate/rhythm Gastrointestinal: Normal bowel sounds, Soft and benign, Non-distended, No tenderness, No masses, No rebound, No guarding Musculoskeletal: No erythema, No tenderness, No warmth Integumentary: No tenderness/swelling, No erythema, No warmth, No cyanosis Neurological: Normal speech, Normal strength at 5/5 x4 extr, Normal tone, Normal affect Laboratory Data at Discharge: WBC 8.9 K/uL (4.3-10.9) 12/30/17 05:43 Hgb 10.6 g/dL (13.6-17.9) L 12/30/17 05:43 Hct 30.7 % (39.6-49.0) L 12/30/17 05:43 Plt Count 276 K/uL (152-406) 12/30/17 05:43 PT 13.2 SECONDS (9.5-12.5) H 12/26/17 22:16 INR 1.12 12/26/17 22:16 Sodium 145 mmol/L (136-145) 12/30/17 05:43 Potassium 4.0 mmol/L (3.5-5.1) 12/30/17 05:43 BUN 23 mg/dL (7-18) H 12/30/17 05:43 Creatinine 1.10 mg/dL (0.55-1.3) 12/30/17 05:43 Glucose 85 mg/dL (74-106) 12/30/17 05:43 Phosphorus 3.8 mg/dL (2.5-4.9) 12/30/17 05:43 Magnesium 2.0 mg/dL (1.8-2.4) 12/30/17 05:43 Total Bilirubin 0.8 mg/dL (0.2-1.0) 12/27/17 05:34 AST 29 U/L (15-37) 12/27/17 05:34 ALT 33 U/L (12-78) 12/27/17 05:34 Alkaline Phosphatase 51 U/L (45-117) 12/27/17 05:34 Troponin I 0.03 ng/mL (0.0-0.045) 12/27/17 14:06 Triglycerides 72 mg/dL (<150) 12/27/17 05:34 Cholesterol 167 mg/dL (<200) 12/27/17 05:34 HDL Cholesterol 45 mg/dL (40-60) 12/27/17 05:34 Cholesterol/HDL Ratio 3.71 12/27/17 05:34 Home Medications: Insulin Glargine,Hum.rec.anlog [Byron Perez] 80 unit SQ DAILY 05/04/17 Amlodipine [Norvasc*] 10 mg PO DAILY #30 tab 05/05/17 Aspirin [Aspirin EC 81 MG] 81 mg PO DAILY #90 tablet. 05/05/17 Lisinopril 40 mg PO DAILY 12/27/17 Patient Discharge Instructions: 1. Patient will need to follow up with his PCP within one week to follow up this hospitalization. 2. Patient presented with Chest pain and Shortness of breath secondary to Acute on Chronic Diastolic Congestive Heart Failure. He was given diuretic therapy with improvement. Repeat CXR showed resolution of edema. At discharge he will need to continue with a 1500 cc per day fluid restriction and ADA low salt diet. At discharge he has been started on Lasix 40 mg one pill daily and Aldactone 25 mg one pill daily. He will need to follow up with Nephrology and his PCP to further monitor and address. He will need to follow up with his PCP in one week to be cleared to go back to work. 3. Patient was evaluated by Nephrology for Proteinuria suspicious for Nephrotic range syndrome. Lab is pending at discharge. He will need to follow up with Nephrology in 1-2 weeks to further monitor and address lab done in the Hospital. Recommendation is to recheck Lab-BMP in one week to monitor his progress. 4. Patient has Hypertension. Medication has been adjusted for better control. At discharge he will continue with Norvasc 10 mg one pill daily, Lisinopril 40 mg one pill daily, and Metoprolol 50 mg one pill twice daily. Recommendation is to maintain BP less than 150/80. His medication may need further adjustment that can be done by Nephrology or his PCP. 5. Patient has DM Type 2 that is very well controlled with a Hemoglobin A1c of 4.8. He is using Insulin long acting as needed. Blood sugars are well controlled off Insulin at this time. At discharge, I will recommend to HOLD his Insulin medication. He will need to continue with diet control. No medication is needed at this time. He will need to monitor his blood sugar at least twice daily. Recommendation is to maintain his blood sugar less than 140 fasting and less than 200 after meals. If his BP is consistently greater than 200, he will need to contact his PCP for further recommendations. He may need to restart his Insulin medication but at a reduced dosage. His PCP will need to further address. Education on Hypoglycemia will be provided. 6. Patient has Anemia of Chronic disease. It has remained stable. Recommendation is to recheck Lab-CBC in one week to monitor his progress. 7. Patient had Edema to the lower extremities related to CHF. This resolved with diuresis. He will need to continue with fluid restrictions and above medication-Lasix/Aldactone. He will need to monitor his weight daily. If his weight increases by more than 5 pounds in a day, he will need to contact his PCP for further recommendations. 8. CT scan showed Thickened Left Ventricle. Patient was evaluated by Cardiology. No cardiac intervention was required as he recently has a cardiac workup in April 2017 which was unremarkable. This included ECHO and stress test. He will need to follow up with Cardiology in 1-2 weeks to see if further evaluation is required as an outpatient like a Cardiac MRI. He will also follow up with Nephrology to further address. 9. Patient has Obesity with BMI-36. Diet and lifestyle modification education will be provided. 10. Patient was found to have a UTI, Urine culture positive for E. Coli. At discharge he will continue with Cipro 500 mg one pill twice daily for 7 days. Recommendation on UTI prevention education will be provided. 11. Patient may have underlying Obstructive sleep apnea. He will need to follow up with Pulmonary as outpatient to further address. Diet: ADA Activity: Ad smita Followup: Shama Blanton MD [ACTIVE - CAN ADMIT] - (Follow up in 2 weeks with chemistry prior to follow up appointment. ) Time spent managing pt's care (in minutes): 55
[2017-12-30 12:56] VITALS: TEMP 98.4
[2017-12-30 14:22] LABS: Hepatitis C Virus RNA (PCR)log <1.18 log IU/mL
[2017-12-30 15:31] VITALS: O2SAT 97
[2017-12-30 15:38] VITALS: BP 132/82
[2017-12-30 19:40] LABS: HBsAG Nonreactive (Nonreactive)
[2017-12-30 20:15] LABS: Scleroderma Antibody (Scl-70) <1.0 AI (<1.0)
--- NOTE | 2017-12-31 03:42 | PN ---
Date of Progress Note: 12/30/2017 Subjective: The patient was admitted with congestive heart failure with diastolic dysfunction, new o nset. Physical Examination: Vital Signs: When I saw the patient, blood pressure 132/82, pulse of 87. Chest: Clear to auscultation. Heart: S1, S2. Regular. Abdomen: Soft, nontender. Extremities: No edema. Laboratory Data: WBC 8.9, H and H 10.6/30.7, platelet 276. Sodium 145, potassium 4, bicarb 32, BUN 23, creatinine 1.1, calcium 8.2, phosphorus 3.2, magnesium of 2. Current Medications: Current medications the patient on include amlodipine 10 mg, ceftriaxone, Lasix 40 b.i.d., lisinopril 40 mg, aldactone 25. Assessment And Plan: 1.Acute kidney injury, secondary to cardiorenal, recovered, resolved. 2.Nephrotic range of proteinuria. Workup is still pending. 3.Renal syndrome has been ruled out. Still waiting for serology assay. Evaluation by Pulmonary rul ed out pulmonary involvement. We will follow up with the serology. 4.Congestive heart failure, diastolic dysfunction. Continue diuresis. Continue AGNIESZKA inhibitor. 5.Diabetes, as by primary. [place] Voice ID: [id number] Report ID: [id number]
[2017-12-31 18:43] LABS: P-ANCA Anti-Myeloperoxidase Ab <1.0 AI (<1.0)
[2017-12-31 20:54] LABS: Albumin, (SPE) 3.1 g/dL (3.8-4.8); Alpha-1-Globulins 0.3 g/dL (0.2-0.3); Alpha-2-Globulins 0.8 g/dL (0.5-0.9); Gamma Globulins 0.8 g/dL (0.8-1.7); INTERPRETATION REPORT
== END 2017-12-30 15:18 | disposition home or self-care (01) | DRG 292 ==
LOC: ER 21:42 → ERHOLD 12-27 01:02 → 4TH 12-27 01:49
PROVIDERS: ADMIT Hospitalist; ATTEND Hospitalist
DX: I11.0 Hypertensive heart disease with heart failure (principal); N39.0 Urinary tract infection, site not specified; I50.33 Acute on chronic diastolic (congestive) heart failure; E11.9 Type 2 diabetes mellitus without complications; D64.9 Anemia, unspecified; E88.09 Other disorders of plasma-protein metabolism, not elsewhere classified; R80.9 Proteinuria, unspecified; E78.5 Hyperlipidemia, unspecified; F41.9 Anxiety disorder, unspecified; B96.20 Unspecified Escherichia coli [E. coli] as the cause of diseases classified elsewhere; E66.9 Obesity, unspecified; Z68.36 Body mass index [BMI] 36.0-36.9, adult
CPT/HCPCS: 36415; 71045; 71046; 71275; 76770; 80048; 80053; 80061; 80069; 80076; 81001; 81003; 82088; 82533; 82570; 82607; 82728; 82746; 82962; 83036; 83520; 83540; 83735; 83880; 83970; 84100; 84156; 84165; 84439; 84443; 84466; 84484; 85025; 85044; 85610; 86021; 86038; 86147; 86160; 86225; 86235; 86317; 86430; 86704; 86706; 87077; 87086; 87088; 87186; 87340; 87389; 87522; 93005; 96374; 96375; 99285; J0360; J0696; J1650; J3475; Q9967

== ENCOUNTER 2018-06-01 07:50 | Day surgery (SDC) | payer BC ==
[2018-06-01] MEDS ORDERED: DIPHENHYDRAMINE 25 MG TAB/CAP ONE (08:28)
[2018-06-01] MEDS ORDERED: ACETAMINOPHEN 325 MG TABLET ONE (08:28)
[2018-06-01] MEDS ORDERED: NA CHLORIDE 0.9% 250 ML ONE ×2 (08:28→11:37)
--- OUTSIDE RECORDS SUMMARY | 2018-06-01 08:28 | XMS REPORT ---
:1975 Author Organization [facility] Address [address] [place] [address] Dr. Parish [address] [place] [id number] Care Team Providers Name Role Phone Unavailable Unavailable Unavailable Problems This patient has no known problems. Allergies, Adverse Reactions, Alerts This patient has no known allergies or adverse reactions. Medications This patient has no known medications.
[2018-06-01 08:32] VITALS: BMI 41.1
[2018-06-01] MEDS ORDERED: FUROSEMIDE 40 MG/4 ML VIAL ONE (11:37)
[2018-06-01 14:03] VITALS: BP 133/78; TEMP 98.4; O2SAT 96
[2018-06-01 15:30] LABS: Hematocrit 29.2 % (39.6-49.0)
== END 2018-06-01 15:20 | disposition home or self-care (01) ==
LOC: DS 07:50
PROVIDERS: ATTEND Internal Medicine Nephrology
DX: D47.2 Monoclonal gammopathy (principal); I13.0 Hypertensive heart and chronic kidney disease with heart failure and stage 1 through stage 4 chronic kidney disease, or unspecified chronic kidney disease; I50.32 Chronic diastolic (congestive) heart failure; N18.3 Chronic kidney disease, stage 3 (moderate); D63.1 Anemia in chronic kidney disease; D63.8 Anemia in other chronic diseases classified elsewhere; E78.5 Hyperlipidemia, unspecified; G47.33 Obstructive sleep apnea (adult) (pediatric); E11.22 Type 2 diabetes mellitus with diabetic chronic kidney disease; E11.42 Type 2 diabetes mellitus with diabetic polyneuropathy; E78.01 Familial hypercholesterolemia; E21.0 Primary hyperparathyroidism; K21.9 Gastro-esophageal reflux disease without esophagitis; G89.4 Chronic pain syndrome; M15.0 Primary generalized (osteo)arthritis; E79.0 Hyperuricemia without signs of inflammatory arthritis and tophaceous disease; F34.1 Dysthymic disorder; F41.1 Generalized anxiety disorder; Z87.891 Personal history of nicotine dependence
CPT/HCPCS: 36415; 36430; 85014; 85018; 86850; 86900; 86901; J1940; P9016

== ENCOUNTER 2018-06-10 08:54 | Day surgery (SDC) | payer BC ==
--- OUTSIDE RECORDS SUMMARY | 2018-06-10 08:57 | XMS REPORT ---
:1975 [facility] Address [address] [place] [address] Dr. Parish [address] [place] [id number] Care Team Providers Name Role Phone Unavailable Unavailable Unavailable Problems This patient has no known problems. Allergies, Adverse Reactions, Alerts This patient has no known allergies or adverse reactions. Medications This patient has no known medications.
[2018-06-10] MEDS ORDERED: NA CHLORIDE 0.9% 1,000 ML ONE (09:30)
[2018-06-10] MEDS ORDERED: MIDAZOLAM HCL 2 MG/2 ML INJ ONE (09:36)
[2018-06-10] MEDS ORDERED: FENTANYL CITR 100 MCG/2 ML ONE (09:36)
[2018-06-10] MEDS ORDERED: FLUMAZENIL 0.1 MG/ML (5 mL VIAL) IV ONE (09:38)
[2018-06-10] MEDS ORDERED: DIPHENHYDRAMINE 50 MG/ML VIAL ONE (09:41)
[2018-06-10] MEDS ORDERED: NALOXONE 0.4 MG/ML VIAL ONE (09:41)
[2018-06-10] MEDS ORDERED: EPINEPHRINE/PF 1 MG/ML AMP ONE (09:41)
[2018-06-10] MEDS ORDERED: HYDROCODONE/APAP 7.5/325 MG TAB ONE (14:46)
[2018-06-10 14:58] VITALS: BP 156/83; TEMP 97.3; O2SAT 98
[2018-06-10 15:11] VITALS: BMI 37.4
--- NOTE | 2018-06-11 14:20 | RAD REPORT ---
EXAM DESCRIPTION: - Renal Biopsy CT - 06/10/2018 12:21 pm CLINICAL HISTORY: Renal disease/proteinuria. TECHNIQUE: The risks, benefits and alternatives to the procedure were explained to the patient and i nformed consent obtained. The patient was placed prone into the CT scanner and images of the kidneys obtained. The patient was pre-medicated with Versed and fentanyl intravenously. Vital signs were monitored by a nurse in attendance. Conscious sedation was performed for approximately 45 minutes. Skin and subcutaneous tissues were anesthetized with lidocaine. Under CT guidance a 17-gauge needle was placed into the posterior aspect of the lower pole of the lef t kidney. Through this 18-gauge needle was placed and three 2 cm core specimens obtained and given to pathology. The post biopsy films demonstrate a minimal perirenal hemorrhage. The patient experienced no immediate complication. All CT scans are performed using dose optimization technique as appropriate and may include automated exposure control or mA/KV adjustment according to patient size. IMPRESSION: CT guided core biopsies of the left kidney.
== END 2018-06-10 15:15 | disposition home or self-care (01) ==
LOC: DS 08:54
PROVIDERS: ATTEND Internal Medicine Nephrology
PROC: 0TB13ZX Excision of Left Kidney, Percutaneous Approach, Diagnostic (ICD-10-PCS; principal; 2018-06-10)
DX: R80.9 Proteinuria, unspecified (principal); N28.9 Disorder of kidney and ureter, unspecified
CPT/HCPCS: 82962; 88300; J0171; J2250; J2310; J3010; J7030

== ENCOUNTER 2018-08-02 11:08 | Inpatient (IN) | payer BC ==
--- OUTSIDE RECORDS SUMMARY | 2018-08-02 11:27 | XMS REPORT ---
:1975 Author [facility] Address [address] [place] [address] Dr. Parish [address] [place] [id number] Care Team Providers Name Role Phone Unavailable Unavailable Unavailable Problems This patient has no known problems. Allergies, Adverse Reactions, Alerts This patient has no known allergies or adverse reactions. Medications This patient has no known medications.
[2018-08-02 11:48] VITALS: BMI 40.8
[2018-08-02] MEDS ORDERED: NA CHLORIDE 0.9% 1,000 ML IV SCH (12:00)
[2018-08-02 12:32] LABS: Absolute Lymphocytes (CBC) 0.3 K/uL (0.7-4.9); Absolute Monocytes 0.2 K/uL (0.1-1.3); Absolute Neutrophil 5.8 K/uL (1.8-8.0); Basophils % 0.5 % (0-1.3); Eosinophils % 1.3 % (0-4.4); Hematocrit 27.2 % (39.6-49.0); Lymphocytes % 4.5 % (15.3-44.8); MPV 11.3 fL (7.6-11.3); Monocytes % 2.8 % (3.3-12.3); RBC Red Blood Cell Count 2.76 M/uL (4.33-5.43)
[2018-08-02 13:10] LABS: Albumin 3.2 g/dL (3.4-5.0); Bilirubin Total 1.2 mg/dL (0.2-1.0); Protein, Total 6.1 g/dL (6.4-8.2)
[2018-08-02] MEDS: CEFEPIME/SWI 1gm 10 ML IV SCH ×2 (13:16→21:14)
[2018-08-02 13:36] LABS: Blood Morphology Comment NOT SEEN (NOT SEEN); Platelet Estimate ADEQ; Urine White Blood Cell Casts OK
[2018-08-02] MEDS ORDERED: D50W 25 GM/50 ML SYRINGE IV PRN (15:53)
[2018-08-02] MEDS ORDERED: GLUCAGON 1 MG/VIAL IM PRN (15:53)
[2018-08-02] MEDS ORDERED: DIPHENHYDRAMINE 12.5MG/5ML LIQ PO PRN (15:55)
--- NOTE | 2018-08-02 16:08 | P.HP ---
Certification for Inpatient Patient admitted to: Observation With expected LOS: <2 Midnights Patient will require the following post-hospital care: None Practitioner: I am a practitioner with admitting privileges, knowledge of patient current condition, hospital course, and medical plan of care. Services: Services provided to patient in accordance with Admission requirements found in Title 42 Section 412.3 of the Code of Federal Regulations Patient History Date of Service: 08/02/18 Primary Care Provider: Dr Garza - Oncology History of Present Illness: This is a 43 y/o M with Pmhx of MM, Diabetes, HTN and GERD who is admitted to the hospital directly from oncology office. Patient stated that he had been having some nasal congestion and sore throat for past 1 week and started noticing that he had a new rash that came on on the left side of his face. He started behind his ears and has now progressed to the front of his cheek. Patient describes the rash to be burning and very painful. He states that he almost appears that his face on fire. Patient also started noticing he had some fever and chills since last night as well. Patient states that he does not have any difficulty swallowing however does sometimes feel like something is stuck in his throat. Patient denies having any shortness of breath chest pain nausea vomiting or any other associated symptoms. Patient has been receiving chemotherapy along with medication for multiple myeloma for about 1 month now. Patient was scheduled to get chemotherapy this morning however was canceled due to the rash on his left cheek. No other complaints to offer at this time. Allergies No Known Allergies Allergy (Verified 12/28/17 03:47) Home Medications: Insulin Glargine,Hum.rec.anlog [Byron Perez] 80 unit SQ DAILY 05/04/17 Aspirin [Aspirin EC 81 MG] 81 mg PO DAILY #90 tablet. 05/05/17 Amlodipine [Norvasc] 10 mg PO DAILY #30 tab 12/30/17 Ciprofloxacin HCl [Cipro 500 MG Tablet] 500 mg PO BID #14 tab 12/30/17 Furosemide [Lasix] 40 mg PO DAILY #30 tab 12/30/17 Lisinopril 40 mg PO DAILY #30 tablet 12/30/17 Metoprolol Tartrate [Lopressor*] 50 mg PO BID #60 tab 12/30/17 Spironolactone [Aldactone] 25 mg PO DAILY #30 tab 12/30/17 - Past Medical/Surgical History Has patient received pneumonia vaccine in the past: No Diabetic: Yes -: Hypertension -: Diabetes mellitus type 2 -: Depression -: Anxiety -: Right knee surgery Psychosocial/ Personal History: The patient is . He has 4 children. 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 Left Ear Swelling. Vesicules and bullae noted. ) Neck: Other (Swollen tonsils, NO exudates noted. No diff Swallowing) Respiratory: Clear to auscultation bilaterally, Normal air movement Cardiovascular: Regular rate/rhythm, Normal S1 S2 Gastrointestinal: Normal bowel sounds, No tenderness Musculoskeletal: No tenderness Integumentary: Rash(es), Skin lesion, Tenderness/swelling, Erythema, Warmth Neurological: Normal gait, Normal speech, Normal strength at 5/5 x4 extr, Normal tone, Normal affect Lymphatics: Other (Cervical Lymphadenopathy and Submandibular Adenopathy ) - Studies Laboratory Data (last 24 hrs) 08/02/18 12:31: Sodium 145, Potassium 4.0, BUN 44 H D, Creatinine 1.74 H, Glucose 172 H, Total Bilirubin 1.2 H, AST 16, ALT 26, Alkaline Phosphatase 83 08/02/18 12:06: WBC 6.4, Hgb 9.1 L, Hct 27.2 L, Plt Count 151 L Assessment and Plan - Problems (Diagnosis) (1) Erysipelas Current Visit: Yes Status: Acute Plan: Pt is Immunocompromised. Currently on chemotherapy with dx of Multiple Myeloma now with Left sided facial Swelling, Redness and Warmth. -Pt also with Swollen Tonsils, No extudate noted. -High risk for MRSA due to IC and Diabetic -IV cefepime and Vanc at this time -Blood culture and Nasopharynx culture Pending -Will also get ESR, RPR and facial CT to r/o other abnormality (2) Multiple myeloma Current Visit: Yes Status: Chronic Plan: Currently taking Chemotherapy. -Will hold at this time -High risk for MRSA infection Qualifiers: Multiple myeloma remission status: not in remission Qualified Code(s): C90.00 - Multiple myeloma not having achieved remission (3) Hypertension Onset Date: 05/05/17 Current Visit: No Status: Chronic Plan: Will restart home medication once brings the updated list Qualifiers: Hypertension type: essential hypertension Qualified Code(s): I10 - Essential (primary) hypertension (4) Diabetes mellitus Onset Date: 05/05/17 Current Visit: No Status: Chronic Plan: Will place patient on ISS Qualifiers: Diabetes mellitus type: type 2 Diabetes mellitus senior hr generalist insulin use: with nursing home use Diabetes mellitus complication status: with skin complications Diabetes mellitus complication detail: with other skin complication Qualified Code(s): E11.628 - Type 2 diabetes mellitus with other skin complications; Z79.4 - [facility] (current) use of insulin (5) Obstructive sleep apnea Current Visit: No Status: Chronic Plan: Will restart on CPAP (6) GERD (gastroesophageal reflux disease) Current Visit: No Status: Chronic Plan: Will restart on Protonix Qualifiers: Esophagitis presence: without esophagitis Qualified Code(s): K21.9 - Gastro -esophageal reflux disease without esophagitis Discharge Plan: Home Plan to discharge in: Greater than 2 days - Advance Directives Does patient have a Living Will: No Does patient have a Durable POA for Healthcare: No - Code Status/Comfort Care Code Status Assessed: Yes Critical Care: No
--- NOTE | 2018-08-02 16:47 | RAD REPORT ---
EXAM DESCRIPTION: CT - CTFB CLINICAL HISTORY: Abscess dental COMPARISON: Bone Survey dated 07/15/2018; Renal Biopsy\CT dated 06/10/2018 TECHNIQUE: Axial 2 mm thick images of the face were obtained with sagittal and coronal reconstructio n images. All CT scans are performed using dose optimization technique as appropriate and may include automated exposure control or mA/KV adjustment according to patient size. FINDINGS: A periapical abscess is present involving the left first mandibular canine. The periapical abscess measures 5-6 mm. Inflammatory changes are present adjacent to this region and extending sandrine g the left aspect of the face with there is significant skin thickening and subcutaneous fat reticula tion present. A subperiosteal abscess is not seen. The left parotid gland appears mildly edematous and enlarged. Multiple enlarged lymph nodes are seen along both jugular chains bilaterally. Small mucous retention cyst is seen right maxillary antrum. IMPRESSION: 6 mm periapical abscess noted left wrist mandibular canine. No subperiosteal abscess is discretely identified. Skin thickening and subcutaneous fat reticulation is seen along the left aspect of the face.
[2018-08-02] MEDS: VANCOMYCIN 2 GM in NA CHLORIDE 0.9% 500 ML IVPB SCH (17:14)
[2018-08-02] MEDS: INSULIN -REGULAR HUMAN 50 UNIT/0.5 ML ML SQ SCH ×2 (17:14→21:14)
[2018-08-02 17:27] LABS: RPR Titer ND
[2018-08-02] MEDS: ATORVASTATIN 40 MG TAB PO SCH (21:00)
[2018-08-02] MEDS: METOPROLOL TAR 50 MG TAB PO SCH (21:00)
[2018-08-02] MEDS ORDERED: CEFEPIME 1 GM/VIAL IV SCH (21:00)
[2018-08-02] MEDS: CARVEDILOL 25 MG TAB PO SCH (21:00)
[2018-08-02] MEDS: HYDRALAZINE HCL 25 MG TABLET PO SCH (21:00)
[2018-08-02] MEDS: BUMETANIDE 1 MG TABLET PO SCH (21:00)
--- NOTE | 2018-08-02 21:21 | CON ---
History Of Present Illness: This is a 43-year-old male. I was consulted for left-sided facial cellu litis. The patient claims that he developed a small lesion behind his left ear and then started spre ading to his neck and face. The patient has recently been diagnosed with multiple myeloma and being treated with chemotherapy by Hematology/Oncology Team. The patient denies any other problems. No na usea, vomiting, chest pain, abdominal pain, constipation, or diarrhea. Past Medical History: Significant for diabetes mellitus, multiple myeloma, morbid obesity, hypertens ion, depression, anxiety, right knee surgery. Social History: with 4 kids. Social History: Nonsmoker, nondrinker. Family History: Noncontributory. Medication: Cefepime and vancomycin, see [facility] for other medication. Allergies: NO KNOWN DRUG ALLERGIES. Review of Systems: A 10-point review was performed. Physical Examination: General: A 43-year-old male, sitting in wheelchair, not in any acute cardiopulmonary distress. Vital Signs: Temperature 98.3, pulse 86, respiration 18, blood pressure 128/60. HEENT: Left facial and neck and behind the ear area with erythematous changes and increased warmth a nd tenderness. Neck: Supple. Lungs: Clear to auscultation. Heart: S1, S2. Regular. Abdomen: Soft, nontender. Bowel sounds present. Extremity: Trace edema. Laboratory Data: Shows WBC 6.4, hemoglobin 9.1, platelets 151, sodium 145, potassium 4, chloride 108 , bicarb 29, BUN 44, creatinine 1.74, glucose is 277, albumin is 3.2. Assessment And Plan: Left facial and neck cellulitis. Agree with broad-spectrum antibiotic coverage . Awaiting culture results. Multiple myeloma and diabetes mellitus, possibly keeping the white bloo d cell count under normal range. Continue antibiotic and supportive care, total course of 2 weeks. We will follow the patient as needed. Thank you for consult. IMMANUEL/MO Voice ID: [id number] Report ID: [id number]
[2018-08-02] MEDS ORDERED: HYDROCODONE/APAP 10/325 TAB PO PRN (21:33)
[2018-08-02] MEDS: MORPHINE 4 MG/ML SYR IV PRN (22:11)
[2018-08-02 22:22] LABS: Urine Appearance CLEAR; Urine Bilirubin NEGATIVE (NEG); Urine Blood 2+ (NEG); Urine Color YELLOW; Urine Glucose 3+ (NEG); Urine Protein 3+ (NEG); Urine Specific Gravity 1.015 (1.005-1.030); Urine Urobilinogen 0.2 mg/dL (0.2-1.0)
[2018-08-02 22:27] LABS: Urine Microscopic Reflex ORDER UMIC
[2018-08-03 00:11] LABS: Urine Bacteria <20 /HPF (NONE SEEN); Urine Culture Reflex Order NOT NEEDED
[2018-08-03 00:34] LABS: RPR (Rapid Plasma Reagin) NON-REACT (NON-REACT)
[2018-08-03] MEDS: MORPHINE 4 MG/ML SYR IV PRN (03:59)
[2018-08-03 06:39] LABS: Absolute Lymphocytes (CBC) 0.2 K/uL (0.7-4.9); Absolute Monocytes 0.3 K/uL (0.1-1.3); Basophils % 0.1 % (0-1.3); Eosinophils % 0.5 % (0-4.4); Hematocrit 24.6 % (39.6-49.0); Lymphocytes % 3.1 % (15.3-44.8); MPV 11.6 fL (7.6-11.3); Monocytes % 3.8 % (3.3-12.3); RBC Red Blood Cell Count 2.53 M/uL (4.33-5.43)
[2018-08-03 06:46] LABS: Magnesium 1.5 mg/dL (1.8-2.4); Phosphorus 3.2 mg/dL (2.5-4.9)
[2018-08-03 06:53] LABS: Albumin 2.7 g/dL (3.4-5.0); Potassium 3.9 mmol/L (3.5-5.1); Protein, Total 5.2 g/dL (6.4-8.2)
[2018-08-03] MEDS: INSULIN -REGULAR HUMAN 50 UNIT/0.5 ML ML SQ SCH ×4 (07:30→21:00)
[2018-08-03] MEDS ORDERED: POTASSIUM CL SA 10 MEQ TAB PO ONE (09:00)
[2018-08-03] MEDS ORDERED: Magnesium Sulfate 2gm IVPB 2 G/50 ML BAG IV ONE (09:00)
[2018-08-03] MEDS: METOPROLOL TAR 50 MG TAB PO SCH ×2 (09:00→09:19)
[2018-08-03] MEDS ORDERED: AMLODIPINE 10 MG TAB PO SCH (09:00)
[2018-08-03] MEDS: HYDRALAZINE HCL 25 MG TABLET PO SCH ×2 (09:18→22:02)
[2018-08-03] MEDS: PANTOPRAZOLE 40MG TABLET PO SCH (09:18)
[2018-08-03] MEDS: BUMETANIDE 1 MG TABLET PO SCH ×2 (09:18→22:06)
[2018-08-03] MEDS: ASPIRIN EC 81 MG TAB PO SCH (09:19)
[2018-08-03] MEDS: CARVEDILOL 25 MG TAB PO SCH ×2 (09:19→22:03)
[2018-08-03] MEDS: ALLOPURINOL 100 MG TAB PO SCH (09:19)
[2018-08-03] MEDS: CEFEPIME/SWI 1gm 10 ML IV SCH ×2 (09:20→22:07)
--- NOTE | 2018-08-03 11:31 | P.PN ---
Subjective Date of Service: 08/03/18 Primary Care Provider: Dr Garza - Oncology Pt seen and examined at bedside. Chart Reviewed. pt c.o of burning and pain on the left jaw area. Denies fever, chills or any other symptoms. Review of Systems 10-point ROS is otherwise unremarkable Physical Examination - Vital Signs Temperature: 99.8 F Blood Pressure: 146/76 Pulse: 81 Respirations: 16 Pulse Ox (%): 94 - Physical Exam General: Alert, In no apparent distress HEENT: Other (Left Sided Facial Swelling. Decrease Erythema. Increase Vesicular Appearance. Ear swelling same as before. ) Respiratory: Clear to auscultation bilaterally, Normal air movement Cardiovascular: Regular rate/rhythm, Normal S1 S2 Gastrointestinal: Normal bowel sounds, No tenderness Musculoskeletal: No tenderness Integumentary: No rashes Neurological: Normal speech, Normal tone, Normal affect Lymphatics: No axilla or inguinal lymphadenopathy - Studies Laboratory Data (last 24 hrs) 08/03/18 05:37: Phosphorus 3.2, Magnesium 1.5 L 08/03/18 05:37: Sodium 145, Potassium 3.9, BUN 49 H, Creatinine 1.79 H, Glucose 178 H, Total Bilirubin 1.0, AST 8 L, ALT 23, Alkaline Phosphatase 65 08/03/18 05:37: WBC 6.5, Hgb 8.8 L, Hct 24.6 L, Plt Count 131 L 08/02/18 12:31: Sodium 145, Potassium 4.0, BUN 44 H D, Creatinine 1.74 H, Glucose 172 H, Total Bilirubin 1.2 H, AST 16, ALT 26, Alkaline Phosphatase 83 08/02/18 12:06: WBC 6.4, Hgb 9.1 L, Hct 27.2 L, Plt Count 151 L Medications List Reviewed: Yes Assessment And Plan - Current Problems (Diagnosis) (1) Erysipelas Current Visit: Yes Status: Acute Plan: Pt is Immuno-compromised. Currently on chemotherapy with dx of Multiple Myeloma now with Left sided facial Swelling, Redness and Warmth. -Pt also with Swollen Tonsils, No exudates noted. -Improving today however, burning and vesicle still present. -High risk for MRSA and Shingles due to IC and Diabetic -IV cefepime and Vanc at this time. Started on PO valcyclovir and Gabapentin -Blood culture and Nasopharynx culture Pending. (2) Multiple myeloma Current Visit: Yes Status: Chronic Plan: Currently taking Chemotherapy. -Will hold at this time -High risk for MRSA and shingles infection Qualifiers: Multiple myeloma remission status: not in remission Qualified Code(s): C90.00 - Multiple myeloma not having achieved remission (3) Hypertension Onset Date: 05/05/17 Current Visit: No Status: Chronic Plan: Restarted on BP medication -Hold Metoprolol at this time. 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
[2018-08-03] MEDS ORDERED: ONDANSETRON 4 MG/2 ML VIAL IV PRN (12:46)
[2018-08-03] MEDS ORDERED: DIPHENHYDRAMINE 12.5MG/5ML LIQ PO PRN (12:46)
[2018-08-03] MEDS: HYDROCODONE/APAP 5/325 MG TAB PO PRN (12:52)
[2018-08-03] MEDS: VALACYCLOVIR 500 MG TAB PO SCH ×2 (14:00→21:00)
[2018-08-03] MEDS: VANCOMYCIN 2 GM in NA CHLORIDE 0.9% 500 ML IVPB SCH (17:01)
[2018-08-03] MEDS: ATORVASTATIN 40 MG TAB PO SCH (21:00)
[2018-08-03] MEDS: GABAPENTIN 100 MG CAP PO SCH (22:04)
[2018-08-04] MEDS: ACETAMINOPHEN 325 MG TABLET PO PRN ×3 (02:15→18:02)
[2018-08-04 05:41] LABS: Absolute Lymphocytes (CBC) 0.4 K/uL (0.7-4.9); Absolute Monocytes 0.2 K/uL (0.1-1.3); Absolute Neutrophil 6.9 K/uL (1.8-8.0); Basophils % 1.7 % (0-1.3); Eosinophils % 5.8 % (0-4.4); Hematocrit 24.9 % (39.6-49.0); Lymphocytes % 5.2 % (15.3-44.8); MPV 10.9 fL (7.6-11.3); Monocytes % 2.7 % (3.3-12.3); RBC Red Blood Cell Count 2.56 M/uL (4.33-5.43)
[2018-08-04 06:11] LABS: Albumin 2.5 g/dL (3.4-5.0); Bilirubin Total 1.4 mg/dL (0.2-1.0); Magnesium 1.6 mg/dL (1.8-2.4); Potassium 3.6 mmol/L (3.5-5.1)
[2018-08-04] MEDS ORDERED: MAGNESIUM SULFATE 1 gm IVPB 1 GM/100 ML BAG IV ONE (07:35)
[2018-08-04] MEDS ORDERED: KCL 20 MEQ/100 mL IVPB 20 MEQ/100 ML BAG IV SCH (08:00)
[2018-08-04] MEDS: BUMETANIDE 1 MG TABLET PO SCH ×2 (08:13→21:34)
[2018-08-04] MEDS: GABAPENTIN 100 MG CAP PO SCH ×2 (08:14→21:35)
[2018-08-04] MEDS: ASPIRIN EC 81 MG TAB PO SCH (08:14)
[2018-08-04] MEDS: HYDRALAZINE HCL 25 MG TABLET PO SCH ×2 (08:14→21:00)
[2018-08-04] MEDS: CARVEDILOL 25 MG TAB PO SCH ×2 (08:14→21:00)
[2018-08-04] MEDS: ALLOPURINOL 100 MG TAB PO SCH (08:14)
[2018-08-04] MEDS: PANTOPRAZOLE 40MG TABLET PO SCH (08:14)
[2018-08-04] MEDS: INSULIN -REGULAR HUMAN 50 UNIT/0.5 ML ML SQ SCH ×4 (08:16→21:34)
[2018-08-04] MEDS: VALACYCLOVIR 500 MG TAB PO SCH ×3 (08:51→21:36)
[2018-08-04] MEDS: CEFEPIME/SWI 1gm 10 ML IV SCH (08:52)
[2018-08-04] MEDS ORDERED: POTASSIUM CL SA 10 MEQ TAB PO ONE (09:00)
[2018-08-04] MEDS ORDERED: MAGNESIUM HYDROXIDE 8% 30 ML PO PRN (10:00)
[2018-08-04] MEDS ORDERED: DIPHENHYDRAMINE 12.5MG/5ML LIQ PO PRN (10:32)
[2018-08-04] MEDS: DOCUSATE NA 100 MG CAP PO SCH ×2 (10:36→21:34)
--- NOTE | 2018-08-04 10:38 | P.PN ---
Subjective Date of Service: 08/04/18 Primary Care Provider: Dr Garza - Oncology Pt seen and examined at bedside. Chart Reviewed. Pt states that burning pain is much better than before. Facial Swelling is still present and he feels that his rash is getting better. Review of Systems 10-point ROS is otherwise unremarkable Physical Examination - Vital Signs Temperature: 98.1 F Blood Pressure: 111/57 Pulse: 84 Respirations: 18 Pulse Ox (%): 95 - Physical Exam General: Alert, In no apparent distress, Oriented x3 HEENT: Other (Facial Swelling on the right side. Rash has improved. Vesicles are large and wet appearing. ) Respiratory: Clear to auscultation bilaterally, Normal air movement Cardiovascular: Regular rate/rhythm, Normal S1 S2 Gastrointestinal: Normal bowel sounds, No tenderness Musculoskeletal: No tenderness Integumentary: No rashes Neurological: Normal speech, Normal tone, Normal affect Lymphatics: No axilla or inguinal lymphadenopathy - Studies Laboratory Data (last 24 hrs) 08/04/18 05:30: Sodium 145, Potassium 3.6, BUN 47 H, Creatinine 1.90 H, Glucose 65 L, Magnesium 1.6 L, Total Bilirubin 1.4 H, AST 10 L, ALT 20, Alkaline Phosphatase 56 08/04/18 05:30: WBC 8.2 D, Hgb 8.6 L, Hct 24.9 L, Plt Count 140 L Microbiology Data (last 24 hrs): 08/02/18 19:03 Nasopharnyx Culture & Sensitivity - Final Medications List Reviewed: Yes Assessment And Plan - Current Problems (Diagnosis) (1) Erysipelas Current Visit: Yes Status: Acute Plan: Pt is Immuno-compromised. Currently on chemotherapy with dx of Multiple Myeloma now with Left sided facial Swelling, Redness and Warmth. -Improving today however, vesicle still present. -High risk for MRSA and Shingles due to IC and Diabetic -On PO valcyclovir and Gabapentin for shingles -Switched to PO clindamycin for abscess -Blood Culture negative thus far -Facial CT + for 6MM periapical Abscess noted -[facility] called. Awaiting reccs (2) Shingles Current Visit: Yes Status: Acute Plan: Shingles with Vesicular Wet lesion on the facial dermatome -On Valcyclovir and Gabapentin -Wet lesion today -Will monitor and Placed on Isolation Qualifiers: Herpes zoster complications: with other complications Qualified Code(s): B02.8 - Zoster with other complications (3) Periapical abscess with facial involvement Current Visit: Yes Status: Acute Plan: Facial CT with 6mm Periapical Abscess. -Started on IV clindamycin today -[facility] called. Awaiting Reccs (4) Multiple myeloma Current Visit: Yes Status: Chronic Plan: Currently taking Chemotherapy. -Will hold at this time -High risk for MRSA and shingles infection Qualifiers: Multiple myeloma remission status: not in remission Qualified Code(s): C90.00 - Multiple myeloma not having achieved remission (5) Hypertension Onset Date: 05/05/17 Current Visit: No Status: Chronic Plan: Restarted on BP medication -Hold Metoprolol at this time. Qualifiers: Hypertension type: essential hypertension Qualified Code(s): I10 - Essential (primary) hypertension (6) Diabetes mellitus Onset Date: 05/05/17 Current Visit: No Status: Chronic Plan: On ISS at this time Qualifiers: Diabetes mellitus type: type 2 Diabetes mellitus retirement insulin use: with retirement use Diabetes mellitus complication status: with skin complications Diabetes mellitus complication detail: with other skin complication Qualified Code(s): E11.628 - Type 2 diabetes mellitus with other skin complications; Z79.4 - assisted (current) use of insulin (7) Obstructive sleep apnea Current Visit: No Status: Chronic Plan: CPAP for now PRN (8) GERD (gastroesophageal reflux disease) Current Visit: No Status: Chronic Plan: On protonix Qualifiers: Esophagitis presence: without esophagitis Qualified Code(s): K21.9 - Gastro -esophageal reflux disease without esophagitis
[2018-08-04] MEDS: CLINDAMYCIN INJ 600 MG in NA CHLORIDE 0.9% 50 ML IV SCH ×2 (12:35→17:50)
[2018-08-04] MEDS: HYDROCODONE/APAP 5/325 MG TAB PO PRN ×2 (13:16→21:35)
[2018-08-04] MEDS: ATORVASTATIN 40 MG TAB PO SCH (21:00)
[2018-08-05] MEDS: CLINDAMYCIN INJ 600 MG in NA CHLORIDE 0.9% 50 ML IV SCH ×2 (01:51→10:00)
[2018-08-05] MEDS: HYDROCODONE/APAP 5/325 MG TAB PO PRN ×2 (05:20→10:18)
[2018-08-05 05:58] LABS: Absolute Lymphocytes (CBC) 0.7 K/uL (0.7-4.9); Absolute Monocytes 0.7 K/uL (0.1-1.3); Absolute Neutrophil 6.5 K/uL (1.8-8.0); Basophils % 0.9 % (0-1.3); Eosinophils % 6.3 % (0-4.4); Hematocrit 24.7 % (39.6-49.0); MPV 10.8 fL (7.6-11.3); Monocytes % 8.3 % (3.3-12.3); RBC Red Blood Cell Count 2.54 M/uL (4.33-5.43)
[2018-08-05 06:20] LABS: Albumin 2.5 g/dL (3.4-5.0); Bilirubin Total 1.7 mg/dL (0.2-1.0); Potassium 3.6 mmol/L (3.5-5.1); Protein, Total 5.3 g/dL (6.4-8.2)
[2018-08-05 06:51] VITALS: O2SAT 94
[2018-08-05] MEDS: INSULIN -REGULAR HUMAN 50 UNIT/0.5 ML ML SQ SCH ×2 (07:30→11:30)
[2018-08-05] MEDS: PANTOPRAZOLE 40MG TABLET PO SCH (07:30)
[2018-08-05] MEDS ORDERED: CALCIUM GLUC 10% INJ 9.3 MEQ in NA CHLORIDE 0.9% 100 ML IV ONE (07:31)
[2018-08-05] MEDS: VALACYCLOVIR 500 MG TAB PO SCH (09:00)
[2018-08-05] MEDS ORDERED: POTASSIUM CL SA 10 MEQ TAB PO ONE (09:00)
[2018-08-05] MEDS: BUMETANIDE 1 MG TABLET PO SCH (10:00)
[2018-08-05] MEDS: ALLOPURINOL 100 MG TAB PO SCH (10:01)
[2018-08-05] MEDS: ASPIRIN EC 81 MG TAB PO SCH (10:01)
[2018-08-05] MEDS: CARVEDILOL 25 MG TAB PO SCH (10:01)
[2018-08-05] MEDS: DOCUSATE NA 100 MG CAP PO SCH (10:01)
[2018-08-05] MEDS: GABAPENTIN 100 MG CAP PO SCH (10:01)
[2018-08-05] MEDS: HYDRALAZINE HCL 25 MG TABLET PO SCH (10:02)
--- NOTE | 2018-08-05 11:00 | P.DS ---
Admission Date: 08/03/18 Discharge Date: 08/05/18 Primary Care Provider: Dr Cavazos - Oncology Disposition: ROUTINE DISCHARGE Discharge Condition: GOOD Reason for Admission: Shingles Consultations: ID and [facility] - Problems (1) Erysipelas Current Visit: Yes Status: Acute (2) Shingles Current Visit: Yes Status: Acute Qualifiers: Herpes zoster complications: with other complications Qualified Code(s): B02.8 - Zoster with other complications (3) Periapical abscess with facial involvement Current Visit: Yes Status: Acute (4) Multiple myeloma Current Visit: Yes Status: Chronic Qualifiers: Multiple myeloma remission status: not in remission Qualified Code(s): C90.00 - Multiple myeloma not having achieved remission (5) Hypertension Onset Date: 05/05/17 Current Visit: No Status: Chronic Qualifiers: Hypertension type: essential hypertension Qualified Code(s): I10 - Essential (primary) hypertension (6) Diabetes mellitus Onset Date: 05/05/17 Current Visit: No Status: Chronic Qualifiers: Diabetes mellitus type: type 2 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 use Diabetes mellitus complication status: with skin complications Diabetes mellitus complication detail: with other skin complication Qualified Code(s): E11.628 - Type 2 diabetes mellitus with other skin complications; 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 Patient stated that he had been having some nasal congestion and sore throat for past 1 week and started noticing that he had a new rash that came on on the left side of his face. He started behind his ears and has now progressed to the front of his cheek. Patient describes the rash to be burning and very painful. He states that he almost appears that his face on fire. Patient also started noticing he had some fever and chills since last night as well. Patient states that he does not have any difficulty swallowing however does sometimes feel like something is stuck in his throat. Patient denies having any shortness of breath chest pain nausea vomiting or any other associated symptoms. Patient has been receiving chemotherapy along with medication for multiple myeloma for about 1 month now. Patient was scheduled to get chemotherapy this morning however was canceled due to the rash on his left cheek. No other complaints to offer at this time. Hospital Course: Overall during the hospital stay patient remained stable. Pt was initially admitted to the hospital for Facial Cellulitis after he was found to have Fever, chills and Rash on the left side of the face. pt was initially started on IV vanc and zosyn for his facial Cellulitis. Lab work was done as well. Facial CT was done which was consistent with Periapical Abscess. Pt was thus switched to IV clindamycin and also started on Valcyclovir for possible shingles as vesicles had errupted in first 24hrs after hospital stay. Pt had marked improved in the rash, Vesicles and pain in the next 24hrs after being started on Antiviral and Clindamycin. Pt was then switched to PO abx and antivirals and DC was prepared. Pt was to f.u with [facility] outpt immediately after DC to get tooth extraction for the periapical Abscess per [facility] reccs. Pt was DC home and was asked to f.u with [facility] at 1:30 on the day of discharge. Pt did have low grade fever the night before but most likely 2.2 to tooth abscess. Heme/Onc was contacted who agreeded with the plan and was going to f.u with pt post DC. Chemo will be on hold for now until his shingles are resolved. Pt was DC home on Acyclovir due to be cost effectiveness, gabapentin, Tramadol and clindamycin. F.u with Dr Garrett and Dr cavazos immediately after DC. Pt demonstrated Understanding and thus DC home. Vital Signs/Physical Exam: Temp Pulse Resp BP Pulse Ox 100.2 F 88 20 142/66 H 94 08/05/18 08:00 08/05/18 10:01 08/05/18 08:00 08/05/18 10:01 08/05/18 08:00 General: Alert, In no apparent distress HEENT: Other (Left Sided Facial Swelling improved a lot. No erythema noted. Vesicules that are now starting to crust over. ) Respiratory: Clear to auscultation bilaterally, Normal air movement Cardiovascular: Regular rate/rhythm, Normal S1 S2 Gastrointestinal: Normal bowel sounds, No tenderness Musculoskeletal: No tenderness Integumentary: Rash(es), Skin lesion Neurological: Normal speech, Normal tone, Normal affect Lymphatics: No axilla or inguinal lymphadenopathy Laboratory Data at Discharge: WBC 8.6 K/uL (4.3-10.9) 08/05/18 05:37 Hgb 8.4 g/dL (13.6-17.9) L 08/05/18 05:37 Hct 24.7 % (39.6-49.0) L 08/05/18 05:37 Plt Count 153 K/uL (152-406) 08/05/18 05:37 Sodium 145 mmol/L (136-145) 08/05/18 05:37 Potassium 3.6 mmol/L (3.5-5.1) 08/05/18 05:37 BUN 43 mg/dL (7-18) H 08/05/18 05:37 Creatinine 1.80 mg/dL (0.55-1.3) H 08/05/18 05:37 Glucose 162 mg/dL (74-106) H 08/05/18 05:37 Phosphorus 3.2 mg/dL (2.5-4.9) 08/03/18 05:37 Magnesium 1.6 mg/dL (1.8-2.4) L 08/04/18 05:30 Total Bilirubin 1.7 mg/dL (0.2-1.0) H 08/05/18 05:37 AST 14 U/L (15-37) L 08/05/18 05:37 ALT 23 U/L (12-78) 08/05/18 05:37 Alkaline Phosphatase 58 U/L (45-117) 08/05/18 05:37 Home Medications: Insulin Glargine,Hum.rec.anlog [Touammono Solostar] 40 unit SQ DAILY 05/04/17 Aspirin [Aspirin EC 81 MG] 81 mg PO DAILY #90 tablet. 05/05/17 Allopurinol [Zyloprim*] 100 mg PO DAILY 08/02/18 Atorvastatin Calcium [Lipitor] 40 mg PO BEDTIME 08/02/18 Bumetanide [Bumex*] 4 mg PO BID 08/02/18 Carvedilol [Coreg*] 25 mg PO BID 08/02/18 Hydralazine [Apresoline*] 50 mg PO BID 08/02/18 Nitroglycerin [Nitrostat*] 0.4 mg SL 1X 08/02/18 Ondansetron [Zofran (Odt)*] 4 mg PO Q8H PRN 08/02/18 Pantoprazole [Protonix Tab*] 40 mg PO DAILY 08/02/18 Promethazine HCl 25 mg PO Q6H PRN 08/02/18 metOLazone [Zaroxolyn*] 2.5 mg PO EVERY 7TH DAY 08/02/18 Acyclovir [Zovirax] 800 mg PO 5XD #35 tablet 08/05/18 Clindamycin HCl 300 mg PO BID #28 capsule 08/05/18 Gabapentin 100 mg PO TID #90 capsule 08/05/18 Tramadol HCl [Ultram] 50 mg PO Q6H PRN #60 tablet 08/05/18 New Medications: Acyclovir [Zovirax] 800 mg PO 5XD #35 tablet Clindamycin HCl 300 mg PO BID #28 capsule Gabapentin 100 mg PO TID #90 capsule Tramadol HCl [Ultram] 50 mg PO Q6H PRN #60 tablet PRN Reason: Pain Scale 5-7 (Moderate) Patient Discharge Instructions: Please f.u with Dr Garrett today right after you are discharged from hospital. New medication. Acyclovir 800mg 5xd for 7 days. Gabapentin and Tramadol for pain. Stop. Metoprolol and Norvasc Diet: Regular Activity: Ad smita Followup: Delonte Garrett DDS, MD [ACTIVE - CAN ADMIT] - 08/05/18 1:30 pm (Follow up in the office at 1:30 PM. Call ahead to give insurance information to the office.)
[2018-08-05 12:34] VITALS: BP 119/64; TEMP 99.5
[2018-08-09] MEDS ORDERED: METOLAZONE 2.5 MG TABLET PO SCH (09:00)
== END 2018-08-05 13:31 | disposition home or self-care (01) | DRG 603 ==
LOC: 2ND 11:15 → OBSVTOIN 08-03 12:07 → 2ND 08-03 20:57
PROVIDERS: ADMIT Family Medicine; ATTEND Family Medicine
DX: A46 Erysipelas (principal); C90.00 Multiple myeloma not having achieved remission; Z68.41 Body mass index [BMI] 40.0-44.9, adult; B02.8 Zoster with other complications; K04.7 Periapical abscess without sinus; I10 Essential (primary) hypertension; E11.628 Type 2 diabetes mellitus with other skin complications; G47.33 Obstructive sleep apnea (adult) (pediatric); K21.9 Gastro-esophageal reflux disease without esophagitis; E66.01 Morbid (severe) obesity due to excess calories; Z79.4 Long term (current) use of insulin
CPT/HCPCS: 36415; 70486; 76377; 80053; 80202; 81003; 81015; 82962; 83735; 84100; 84145; 85025; 85652; 86592; 87040; 87070; G0378; J0610; J0692; J2405; J3475; J7030

== ENCOUNTER 2018-09-18 21:50 | Inpatient (IN) | payer BC ==
--- OUTSIDE RECORDS SUMMARY | 2018-09-18 21:53 | XMS REPORT ---
:1975 Author Organization [facility] Address [address] [place] [address] Dr. Parish [address] [place] [id number] Care Team Providers Name Role Phone Unavailable Unavailable Unavailable Problems This patient has no known problems. Allergies, Adverse Reactions, Alerts This patient has no known allergies or adverse reactions. Medications This patient has no known medications.
[2018-09-18 23:18] LABS: Arterial Blood Carboxyhemoglob 1.6 % (0-1.5); Blood Gas Oxyhemoglobin 85.4 % (94-97); Blood O2 Saturation 87.9 % (92-98.5)
[2018-09-18] MEDS ORDERED: ALBUTEROL 2.5 MG/3 ML NEB SOL ONE (23:27)
[2018-09-18 23:54] LABS: Absolute Lymphocytes (CBC) 0.6 K/uL (0.7-4.9); Absolute Monocytes 0.8 K/uL (0.1-1.3); Absolute Neutrophil 4.3 K/uL (1.8-8.0); Basophils % 0.6 % (0-1.3); Eosinophils % 2.8 % (0-4.4); Hematocrit 26.8 % (39.6-49.0); Lymphocytes % 9.8 % (15.3-44.8); MPV 12.1 fL (7.6-11.3); Monocytes % 14.2 % (3.3-12.3)
[2018-09-18 23:57] LABS: Protime INR 1.09
[2018-09-19 00:27] LABS: ALT/SGPT 20 U/L (12-78); AST/SGOT 10 U/L (15-37); Albumin 2.4 g/dL (3.4-5.0); Alkaline Phosphatase 51 U/L (45-117); BUN Blood Urea Nitrogen 42 mg/dL (7-18); Bicarbonate 31 mmol/L (21-32); Bilirubin Direct 0.2 mg/dL (0-0.2); CKMB Creatine Kinase MB < 1.0 ng/mL (0.3-3.6); Creatine Phosphokinase 96 U/L (39-308); Glucose Level 79 mg/dL (74-106); Lipase 151 U/L (73-393); Potassium 3.4 mmol/L (3.5-5.1); Protein, Total 5.5 g/dL (6.4-8.2); Sodium Level 146 mmol/L (136-145)
[2018-09-19 00:41] LABS: Blood Morphology Comment NOTED (NOT SEEN); Platelet Estimate DECR
[2018-09-19] MEDS ORDERED: NA CHLORIDE 0.9% 500 ML ONE (00:52)
--- NOTE | 2018-09-19 01:58 | ER ---
Nurse's Notes [facility] Name: Fredy Acosta Age: 43 yrs Sex: Male : 1975 Arrival Date: 09/18/2018 Time: 21:53 Bed 19 Private MD: Tony Bradley Diagnosis: Pneumonia, unspecified organism;Hypoxemia Presentation: 09/18 22:09 Presenting complaint: Patient states: pt reports cough, congestion and fever x 24 tl2 hours. Pt reports coughing up green mucus. Reports body aches and general malaise. Transition of care: patient was not received from another setting of care. Onset of symptoms was September 17, 2018. Risk Assessment: Do you want to hurt yourself or someone else? Patient reports no desire to harm self or others. Initial Sepsis Screen: Does the patient meet any 2 criteria? HR > 90 bpm. Does the patient have a suspected source of infection? Yes: Productive cough/pneumonia. Care prior to arrival: None. 22:09 Method Of Arrival: Ambulatory tl2 22:09 Acuity: NGA 2 tl2 Triage Assessment: 22:14 Respiratory: Reports shortness of breath cough that is productive, Onset: The tl2 symptoms/episode began/occurred yesterday, the patient has mild shortness of breath. Historical: - Allergies: 22:12 No Known Allergies; tl2 - Home Meds: 22:12 amlodipine 5 mg tab 1 tab once daily [Active]; insulin pen injection [Active]; tl2 gabapentin oral oral [Active]; bumetanide Oral [Active]; aspirin 81 mg Oral chew 1 tab once daily [Active]; chemo infusion twice weekly [Active]; - PMHx: 22:12 Anxiety; Diabetes - IDDM; Hypertension; multiple myeloma; tl2 - Immunization history:: Adult Immunizations up to date. - Social history:: Smoking status: Patient/guardian denies using tobacco. - Ebola Screening: : No symptoms or risks identified at this time. Screenin:14 Abuse screen: Denies threats or abuse. Nutritional screening: No deficits noted. tl2 Tuberculosis screening: No symptoms or risk factors identified. Fall Risk None identified. Assessment: 22:35 General: Appears in no apparent distress. uncomfortable, Behavior is calm, cooperative, rr5 appropriate for age, Reports chills for fever for malaise. Pain: Complains of pain in head Pain does not radiate. Pain currently is 3 out of 10 on a pain scale. Quality of pain is described as aching, Pain began gradually, Is intermittent. Neuro: Level of Consciousness is awake, alert, obeys commands, Oriented to person, place, time, situation, Appropriate for age. Cardiovascular: Capillary refill < 3 seconds Patient's skin is warm and dry. Rhythm is regular. Respiratory: Reports cough that is productive, Airway is patent Respiratory effort is even, unlabored, Respiratory pattern is regular, agonal. GI: No signs and/or symptoms were reported involving the gastrointestinal system. : No signs and/or symptoms were reported regarding the genitourinary system. EENT: No signs and/or symptoms were reported regarding the EENT system. Derm: Skin is intact, Skin temperature is warm. Musculoskeletal: Circulation, motion, and sensation intact. Capillary refill < 3 seconds, Range of motion: intact in all extremities, Reports pain in body. 22:35 Respiratory: bronchial sound. rr5 23:40 Reassessment: Patient appears in no apparent distress at this time. Patient is alert, rr5 oriented x 3, equal unlabored respirations, skin warm/dry/pink. hooked to oxygen at 3 liters per minute. for oxygen saturation 92%. 09/19 00:20 Reassessment: Patient appears in no apparent distress at this time. Patient is alert, rr5 oriented x 3, equal unlabored respirations, skin warm/dry/pink. taken to CT scan per stretcher. 01:30 Reassessment: Patient appears in no apparent distress at this time. Patient is alert, rr5 oriented x 3, equal unlabored respirations, skin warm/dry/pink. patient agreed for the admission. Patient states symptoms have improved. 02:30 Reassessment: Patient appears in no apparent distress at this time. asleep on bed rr5 comfortably. awaiting for room assignment. 03:00 Reassessment: Patient appears in no apparent distress at this time. Patient is alert, rr5 oriented x 3, equal unlabored respirations, skin warm/dry/pink. for transfer to room 409. Patient states feeling better. Patient states symptoms have improved. Vital Signs: 09/18 22:12 BP 139 / 82; Pulse 97; Resp 18; Temp 100.2(O); Pulse Ox 94% on R/A; Weight 118.84 kg; tl2 Height 5 ft. 7 in. (170.18 cm); 23:00 BP 132 / 70; Pulse 89; Resp 17; Pulse Ox 93% on R/A; rr5 23:40 Pulse Ox 92% on 3 lpm NC; rr5 23:55 BP 138 / 85; Pulse 83; Resp 19; Pulse Ox 98% on 3 lpm NC; rr5 09 01:00 BP 131 / 76; Pulse 88; Resp 17; Temp 98.5; Pulse Ox 99% on 3 lpm NC; rr5 02:00 BP 141 / 70; Pulse 96; Resp 16; Temp 98.2; Pulse Ox 98% on 3 lpm NC; rr5 02:45 BP 139 / 75; Pulse 91; Resp 17; Pulse Ox 99% on 3 lpm NC; rr5 02:45 Temp 98; rr5 08 22:12 Body Mass Index 41.03 (118.84 kg, 170.18 cm) tl2 ED Course: 09/18 21:53 Patient arrived in ED. am2 21:53 Tony Bradley MD is Private Physician. am2 22:10 Triage completed. tl2 22:12 Arm band placed on right wrist. tl2 22:20 Joe Boyce RN is Primary Nurse. rr5 22:34 Chest Pa And Lat (2 Views) XRAY In Process Unspecified. EDMS 22:47 Aleah Jovel FNP-C is [facility]. snw 22:47 Mau Fuentes MD is Attending Physician. snw 23:30 Patient has correct armband on for positive identification. Placed in gown. Bed in low rr5 position. Call light in reach. Side rails up X2. monitor technician on. Pulse ox on. NIBP on. 23:30 EKG done, by ED staff, reviewed by Aleah FOSTER Flu and/or RSV swab sent to 5 lab. 23:35 No provider procedures requiring assistance completed. Inserted saline lock: 20 gauge rr5 in right forearm, using aseptic technique. Blood collected. 23:35 Initial lab(s) drawn, by nc, sent to lab. First set of blood cultures drawn. rr5 23:40 Oxygen administration via nasal cannula \T\ 3L/min Response to oxygen therapy: symptoms rr5 improved. 23:43 Radiology exam delayed due to lab results not completed at this time. (BUN/Creatinine). kw1 09/19 00:01 Radiology exam delayed due to lab results not completed at this time. (BUN/Creatinine). kw1 00:20 Radiology exam delayed due to lab results not completed at this time. (BUN/Creatinine) mw3 Attending nurse spoke with Lab and the lab results will be available in approximately another 10 minutes. 00:42 Notified Nurse Practitioner and/or Physician Therapeutic Radiologist of a critical lab result(s), fc bands of 21%. 01:06 CT Chest For PE Angio In Process Unspecified. EDMS 01:57 John Cronin MD is Hospitalizing Provider. snw Administered Medications: 09/18 23:15 Drug: Albuterol 2.5 mg Route: Inhalation; rr5 09/19 01:30 Drug: NS 0.9% 500 ml Route: IV; Rate: bolus; Site: right forearm; rr5 02:50 Follow up: Response: No adverse reaction; IV Status: Completed infusion; IV Intake: rr5 500ml 01:55 Drug: LevaQUIN 500 mg Volume: 100 ml; Route: IVPB; Infused Over: 60 mins; Site: right rr5 forearm; 02:55 Follow up: Response: No adverse reaction; IV Status: Completed infusion; IV Intake: rr5 100ml Point of Care Testing: Blood Glucose: 09/18 23:35 Blood Glucose: 89 mg/dL; rr5 Ranges: Intake: 09/19 01:30 PO: 400ml (Juice); Total: 400ml. rr5 02:50 IV: 500ml; Total: 900ml. rr5 02:55 IV: 100ml; Total: 1000ml. rr5 Output: 00:15 Urine: 950ml (Voided); Total: 950ml. rr5 Outcome: 01:58 Decision to Hospitalize by Provider. snw 02:57 Admitted to Tele accompanied by volodymyr, room 409, with chart, Report called to victoria rr5 02:57 Condition: stable 02:57 Instructed on the need for admit. 03:31 Patient left the ED. rr5 Signatures: Dispatcher [facility] Aleah Jovel, PHOTOGRAMMETRIC TECH-C PHOTOGRAMMETRIC TECH-Csnw Patti Soares RN RN fc Wilma Murphy RN RN tl2 Bhakti Colbert am2 Aliya Nicholson 1 Estefany Singletary 3 Joe Boyce RN RN rr5 Corrections: (The following items were deleted from the chart) 02:53 02:45 BP 139 / 75; Pulse 91bpm; Resp 17bpm; Pulse Ox 99% RA; rr5 rr5
--- NOTE | 2018-09-19 01:59 | EDPHYS ---
Physician Documentation [facility] Name: Fredy Acosta Age: 43 yrs Sex: Male : 1975 Arrival Date: 09/18/2018 Time: 21:53 Bed 19 Private MD: Tony Bradley ED Physician Mau Fuentes HPI: 09/19 02:01 This 43 yrs old Black Male presents to ER via Ambulatory with complaints of Fever, snw Cough, Shortness Of Breath. 02:01 The patient reports fever, not measured (subjective). Onset: The symptoms/episode snw began/occurred suddenly, 2 day(s) ago, and became persistent. Modifying factors: pt with Multiple Myeloma, rec's chemo twice weekly. Associated signs and symptoms: Pertinent positives: cough, with green sputum. Severity of symptoms: At their worst the symptoms were moderate. It is unknown whether or not the patient has had similar symptoms in the past. sees Dr. Bradley and Dr. Garza. Historical: - Allergies: 09/18 22:12 No Known Allergies; tl2 - Home Meds: 22:12 amlodipine 5 mg tab 1 tab once daily [Active]; insulin pen injection [Active]; tl2 gabapentin oral oral [Active]; bumetanide Oral [Active]; aspirin 81 mg Oral chew 1 tab once daily [Active]; chemo infusion twice weekly [Active]; - PMHx: 22:12 Anxiety; Diabetes - IDDM; Hypertension; multiple myeloma; tl2 - Immunization history:: Adult Immunizations up to date. - Social history:: Smoking status: Patient/guardian denies using tobacco. - Ebola Screening: : No symptoms or risks identified at this time. ROS: 09/19 02:00 Constitutional: Negative for fever, chills, and weight loss, Eyes: Negative for injury, snw pain, redness, and discharge, ENT: Negative for injury, pain, and discharge, Neck: Negative for injury, pain, and swelling, Cardiovascular: Negative for chest pain, palpitations, and edema. Abdomen/GI: Negative for abdominal pain, nausea, vomiting, diarrhea, and constipation, Back: Negative for injury and pain, : Negative for injury, bleeding, discharge, and swelling, MS/Extremity: Negative for injury and deformity, Skin: Negative for injury, rash, and discoloration, Neuro: Negative for headache, weakness, numbness, tingling, and seizure. Respiratory: Positive for cough, shortness of breath, at rest. Exam: 01:59 Head/Face: Normocephalic, atraumatic. snw 01:59 Neck: Trachea midline, no thyromegaly or masses palpated, and no cervical lymphadenopathy. Supple, full range of motion without nuchal rigidity, or vertebral point tenderness. No Meningismus. Chest/axilla: Normal chest wall appearance and motion. Nontender with no deformity. No lesions are appreciated. Cardiovascular: Regular rate and rhythm with a normal S1 and S2. No gallops, murmurs, or rubs. Normal PMI, no JVD. No pulse deficits. 01:59 Abdomen/GI: Soft, non-tender, with normal bowel sounds. No distension or tympany. No guarding or rebound. No evidence of tenderness throughout. Back: No spinal tenderness. No costovertebral tenderness. Full range of motion. Skin: Warm, dry with normal turgor. Normal color with no rashes, no lesions, and no evidence of cellulitis. MS/ Extremity: Pulses equal, no cyanosis. Neurovascular intact. Full, normal range of motion. Neuro: Awake and alert, GCS 15, oriented to person, place, time, and situation. Cranial nerves II-XII grossly intact. Motor strength 5/5 in all extremities. Sensory grossly intact. Cerebellar exam normal. Normal gait. Psych: Awake, alert, with orientation to person, place and time. Behavior, mood, and affect are within normal limits. 01:59 Constitutional: The patient appears alert, awake, listless, obese, uncomfortable. 01:59 Eyes: Conjunctiva: exudate, in the left eye, injected, in the left eye. 01:59 ENT: Exam is negative for 01:59 Respiratory: moderate respiratory distress is noted, Respirations: accessory muscle usage, shallow respirations, tachypnea, Breath sounds: bronchial sounds, that are moderate, are heard diffusely. Vital Signs: 09/18 22:12 BP 139 / 82; Pulse 97; Resp 18; Temp 100.2(O); Pulse Ox 94% on R/A; Weight 118.84 kg; tl2 Height 5 ft. 7 in. (170.18 cm); 23:00 BP 132 / 70; Pulse 89; Resp 17; Pulse Ox 93% on R/A; rr5 23:40 Pulse Ox 92% on 3 lpm NC; rr5 23:55 BP 138 / 85; Pulse 83; Resp 19; Pulse Ox 98% on 3 lpm NC; rr5 09 01:00 BP 131 / 76; Pulse 88; Resp 17; Temp 98.5; Pulse Ox 99% on 3 lpm NC; rr5 02:00 BP 141 / 70; Pulse 96; Resp 16; Temp 98.2; Pulse Ox 98% on 3 lpm NC; rr5 02:45 BP 139 / 75; Pulse 91; Resp 17; Pulse Ox 99% on 3 lpm NC; rr5 02:45 Temp 98; rr5 09/18 22:12 Body Mass Index 41.03 (118.84 kg, 170.18 cm) tl2 MDM: 09/18 22:48 Patient medically screened. w 09/19 01:58 Data reviewed: vital signs, nurses notes. Data interpreted: Pulse oximetry: on room air snw is 98 %. Interpretation: normal. Counseling: I had a detailed discussion with the patient and/or guardian regarding: the historical points, exam findings, and any diagnostic results supporting the discharge/admit diagnosis, the presence of at least one elevated blood pressure reading (>120/80) during this emergency department visit, lab results, radiology results, the need for further work-up and treatment in the hospital. 09/18 22:49 Order name: Flu; Complete Time: 00:17 snw 09/18 22:57 Order name: ABG; Complete Time: 23:38 snw 09/18 22:57 Order name: T\T\S w 09/18 22:57 Order name: Basic Metabolic Panel [facility] 09/18 22:57 Order name: Blood Culture Adult (2) sn 09/18 22:57 Order name: CBC with Diff snw 09/18 22:57 Order name: Ckmb sn 09/18 22:57 Order name: CPK snw 09/18 22:57 Order name: Lactate snw 09/18 22:57 Order name: LFT's sn 09/18 22:57 Order name: Lipase [facility] 09/18 22:57 Order name: Procalcitonin; Complete Time: 00:44 snw 09/18 22:57 Order name: Protime (+inr); Complete Time: 23:59 snw 09/18 22:57 Order name: Ptt, Activated; Complete Time: 23:59 snw 09/18 21:52 Order name: Chest Pa And Lat (2 Views) XRAY snw 09/18 22:57 Order name: Troponin (emerg Dept Use Only); Complete Time: 00:26 snw 09/18 22:57 Order name: CT Chest For PE Angio snw 09/18 22:59 Order name: Type and Screen EDMS 09/18 22:59 Order name: Basic Metabolic Panel; Complete Time: 00:32 EDMS 09/18 22:59 Order name: Blood Culture EDMS 09/18 22:59 Order name: CBC with Automated Diff; Complete Time: 00:44 EDMS 09/18 22:59 Order name: CKMB Creatine Kinase MB; Complete Time: 00:32 EDMS 09/18 22:59 Order name: Creatine Phosphokinase; Complete Time: 00:32 EDMS 09/18 22:59 Order name: Lactate; Complete Time: 00:13 EDMS 09/18 22:59 Order name: Liver (Hepatic) Function; Complete Time: 00:32 EDMS 09/18 23:00 Order name: Lipase; Complete Time: 00:32 EDMS 09/18 23:57 Order name: Manual Differential; Complete Time: 00:44 EDMS 09/19 02:27 Order name: Procalcitonin EDMS 09/18 22:57 Order name: Accucheck; Complete Time: 23:43 snw 09/18 22:57 Order name: Cardiac monitoring; Complete Time: 23:43 snw 09/18 22:57 Order name: EKG - Nurse/Tech; Complete Time: 23:43 snw 09/18 22:57 Order name: IV Saline Lock - Large Bore; Complete Time: 23:42 snw 09/18 22:57 Order name: Labs collected and sent; Complete Time: 23:42 snw 09/18 22:57 Order name: O2 Per Protocol; Complete Time: 23:43 snw 09/18 22:57 Order name: O2 Sat Monitoring; Complete Time: 23:43 snw 09/18 23:41 Order name: Oxygen Per Protocol; Complete Time: 23:42 snw 09/19 02:27 Order name: CONS Physician Consult EDMS 09/19 02:28 Order name: CONS Physician Consult EDMS 09/19 02:28 Order name: Regular EDMS Administered Medications: 09/18 23:15 Drug: Albuterol 2.5 mg Route: Inhalation; rr5 09/19 01:30 Drug: NS 0.9% 500 ml Route: IV; Rate: bolus; Site: right forearm; rr5 02:50 Follow up: Response: No adverse reaction; IV Status: Completed infusion; IV Intake: rr5 500ml 01:55 Drug: LevaQUIN 500 mg Volume: 100 ml; Route: IVPB; Infused Over: 60 mins; Site: right rr5 forearm; 02:55 Follow up: Response: No adverse reaction; IV Status: Completed infusion; IV Intake: rr5 100ml Point of Care Testing: Blood Glucose: 09/18 23:35 Blood Glucose: 89 mg/dL; rr5 Ranges: Critical Glucose Levels:Adult <50 mg/dl or >400 mg/dl <40 mg/dl or >180 mg/dl Disposition: 09/19 06:55 Co-signature as Attending Physician, Mau Fuentes MD Available for consultation at ps1 all times . Disposition: 09/19/18 01:58 Hospitalization ordered by John Cronin for Inpatient Admission. Preliminary diagnosis are Pneumonia, unspecified organism, Hypoxemia. - Bed requested for Telemetry/MedSurg (Inpatient). - Status is Inpatient Admission. rr5 - Condition is Stable. - Problem is new. - Symptoms are unchanged. UTI on Admission? No Signatures: Dispatcher [facility] Manuela Duarte RN RN Aleah Jovel, WEIGHT CALCULATOR-C WEIGHT CALCULATOR-Csnw Wilma Murphy RN RN tl2 Mau Fuentes MD MD ps1 Joe Boyce RN RN rr5 Corrections: (The following items were deleted from the chart) 02:38 01:58 Hospitalization Ordered by John Cronin MD for Inpatient Admission. Preliminary diagnosis is Pneumonia, unspecified organism; Hypoxemia. Bed requested for Telemetry/MedSurg (Inpatient). Status is Inpatient Admission. Condition is Stable. Problem is new. Symptoms are unchanged. UTI on Admission? No. snw 03:31 02:38 09/19/2018 01:58 Hospitalization Ordered by John Cronin MD for Inpatient rr5 Admission. Preliminary diagnosis is Pneumonia, unspecified organism; Hypoxemia. Bed requested for Telemetry/MedSurg (Inpatient). Status is Inpatient Admission. Condition is Stable. Problem is new. Symptoms are unchanged. UTI on Admission? No. mw
[2018-09-19] MEDS ORDERED: Levofloxacin500mg IV 500 MG/100 ML BAG IV ONE (02:10)
[2018-09-19] MEDS ORDERED: ONDANSETRON 4 MG/2 ML VIAL IV PRN (02:13)
[2018-09-19] MEDS ORDERED: ALBUTEROL 2.5 MG/3 ML NEB SOL NEB PRN (02:13)
[2018-09-19] MEDS ORDERED: IPRATROPIUM BROM 0.5MG/2.5ML NEB PRN (02:13)
[2018-09-19] MEDS ORDERED: NA CHLORIDE 0.9% 1,000 ML IV SCH (03:00)
[2018-09-19 04:13] VITALS: BMI 40.4
[2018-09-19] MEDS: ACETAMINOPHEN 500 MG TAB PO PRN ×2 (04:15→17:03)
--- NOTE | 2018-09-19 07:53 | EKG ---
Test Date: 2018-09-18 Test Time: 23:21:30 Log Snaker: RR MEASUREMENT RESULTS: Intervals: Rate: 85 MA: 132 QRSD: 90 QT: 374 QTc: 445 [place]: P: 72 MA: 132 QRS: 84 T: -19 INTERPRETIVE STATEMENTS: Normal sinus rhythm T wave abnormality, consider inferior ischemia Abnormal ECG Compared to ECG 12/28/2017 08:04:38 Possible ischemia now present Prolonged QT interval no longer present T-wave abnormality still present Electronically Signed On 09-19-18 07:52:45 CDT by Branden Tee
[2018-09-19 08:17] LABS: Urine Appearance CLEAR; Urine Bilirubin NEGATIVE (NEG); Urine Blood 3+ (NEG); Urine Color YELLOW; Urine Glucose NEGATIVE (NEG); Urine Protein 2+ (NEG); Urine Urobilinogen 0.2 mg/dL (0.2-1.0); Urine pH 6.5 (5.0-7.0)
[2018-09-19 08:43] LABS: Urine Microscopic Reflex ORDER UMIC
[2018-09-19 08:44] LABS: Urine Bacteria NONE SEEN /HPF (NONE SEEN); Urine Culture Reflex Order NOT NEEDED; Urine RBC >50 /HPF (NONE SEEN)
[2018-09-19] MEDS: ENOXAPARIN 40 MG/0.4 ML SQ SCH ×2 (09:00→09:25)
[2018-09-19] MEDS ORDERED: PIPER/TAZO/NS 2.25gm 2.25 GM/50 ML BAG IVPB SCH (09:00)
[2018-09-19] MEDS ORDERED: ENOXAPARIN 40 MG/0.4 ML SQ SCH (09:00)
[2018-09-19] MEDS ORDERED: POTASSIUM 25 MEQ EFFERV TAB PO ONE (09:00)
[2018-09-19] MEDS ORDERED: PIPER/TAZO/NS 3.375gm 3.375 GM/100 ML BAG IVPB SCH (09:00)
[2018-09-19] MEDS: Gatifloxacin Ophth 0.5% (2.5 ML BTL) OPTH SCH ×3 (09:00→21:50)
--- NOTE | 2018-09-19 09:26 | RAD REPORT ---
EXAM DESCRIPTION: RAD - Chest Pa And Lat (2 Views) - 09/18/2018 10:36 pm CLINICAL HISTORY: Cough and congestion, fever COMPARISON: December 2017 TECHNIQUE: PA and lateral views of the chest were obtained. FINDINGS: The lungs are underinflated on the frontal projection on the lateral view has motion degra dation. There is minimal opacification in the left lung base suspicious for early pneumonia. No pulmo nary edema, failure or volume overload. Right lung field is clear. Heart size is normal and central vasculature is within normal limits. No pleural effusion or pneumothorax seen. No acute bony findi ng noted. No aortic abnormality. IMPRESSION: Shallow inspiration exam suspicious for an early or minimal left lung base pneumonia.
[2018-09-19 10:49] LABS: Absolute Lymphocytes (CBC) 0.6 K/uL (0.7-4.9); Absolute Monocytes 0.8 K/uL (0.1-1.3); Absolute Neutrophil 5.6 K/uL (1.8-8.0); Basophils % 0.2 % (0-1.3); Eosinophils % 2.9 % (0-4.4); Hematocrit 25.7 % (39.6-49.0); Lymphocytes % 8.1 % (15.3-44.8); MPV 12.1 fL (7.6-11.3); Monocytes % 11.1 % (3.3-12.3)
[2018-09-19 11:07] LABS: Albumin 2.1 g/dL (3.4-5.0); Bilirubin Total 0.9 mg/dL (0.2-1.0); Magnesium 1.6 mg/dL (1.8-2.4); Potassium 4.2 mmol/L (3.5-5.1); Protein, Total 5.1 g/dL (6.4-8.2)
--- NOTE | 2018-09-19 11:12 | P.CNS ---
Date of Consult: 09/19/18 Reason for Consult: Hypoxemia possible pneumonia Chief Complaint: Shortness of breath History of Present Illness: Patient is 43 years of age has been sick for the past 2 days and having high fever feeling dizzy weak chest congestion history of multiple myeloma treated with the chemotherapy on a by a weekly basis since June seen by oncologist he also has multiple other medical problems including chronic renal failure lower extremity edema history of sleep apnea noncompliant is also coughing up some productive sputum patient does not smoke and is never smoked Allergies No Known Allergies Allergy (Verified 12/28/17 03:47) Home Medications: Aspirin [Aspirin EC 81 MG] 81 mg PO DAILY #90 tablet. 05/05/17 Allopurinol [Zyloprim*] 100 mg PO DAILY 08/02/18 Bumetanide [Bumex*] 4 mg PO BID 08/02/18 Carvedilol [Coreg*] 25 mg PO BID 08/02/18 Nitroglycerin [Nitrostat*] 0.4 mg SL 1X 08/02/18 Ondansetron [Zofran (Odt)*] 4 mg PO Q8H PRN 08/02/18 Pantoprazole [Protonix Tab*] 40 mg PO DAILY 08/02/18 Promethazine HCl 25 mg PO Q4H PRN 08/02/18 Amlodipine [Norvasc*] 09/19/18 Dexamethasone [Decadron*] 4 mg PO SEECOM 09/19/18 Lenalidomide [Revlimid] 1 tab PO SEECOM 09/19/18 Valacyclovir [Valtrex*] 500 mg PO DAILY 09/19/18 Valcade SEECOM 09/19/18 - Past Medical/Surgical History Diabetic: Yes -: Hypertension -: Diabetes mellitus type 2 -: Depression -: Anxiety -: multiple myeloma -: stage 3 renal disease -: Right knee surgery Psychosocial/ Personal History: The patient is . He has 4 children. 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 - Family History Mother Medical History: Diabetes Notes: diverticulitis Father Medical History: Diabetes - Social History Smoking Status: Unknown if ever smoked Alcohol use: Yes CD- Drugs: No Caffeine use: Yes Place of Residence: Home Review of Systems 10-point ROS is otherwise unremarkable General: Weakness Respiratory: Cough, Shortness of Breath Cardiovascular: Edema Physical Examination Temp Pulse Resp BP Pulse Ox 98.3 F 86 16 148/87 H 94 09/19/18 08:00 09/19/18 08:00 09/19/18 08:00 09/19/18 08:00 09/19/18 08:00 General: Alert, In no apparent distress, Oriented x3 HEENT: Atraumatic Neck: Supple Respiratory: Clear to auscultation bilaterally Cardiovascular: Regular rate/rhythm, Normal S1 S2, Edema Gastrointestinal: Normal bowel sounds, Soft and benign Musculoskeletal: No clubbing, No swelling Integumentary: No rashes, No breakdown Laboratory Data (last 24 hrs) 09/18/18 23:35: PT 12.8 H, INR 1.09, APTT 27.1 09/18/18 23:35: WBC 5.9, Hgb 9.2 L, Hct 26.8 L, Plt Count 95 L D 09/18/18 23:35: Sodium 146 H, Potassium 3.4 L, BUN 42 H, Creatinine 1.63 H, Glucose 79, Total Bilirubin 1.0, AST 10 L, ALT 20, Alkaline Phosphatase 51, Lipase 151 - Problems (1) Pneumonia Current Visit: Yes Status: Acute Plan: Patient is 43 years of age admitted with 2 day history of cough congestion and fever shortness of breath his hypoxic chronic renal failure has history of multiple myeloma his on by weekly chemotherapy white count is normal. Patient has chronic renal failure pro calcitonin level is negative chest x-ray shows bilateral ground-glass changes possibly atypical pneumonia of order daily room air pulse ox change to p.o. levofloxacin IV Lasix sputum cultures pending Dc IV fluids possible discharge tomorrow CT angio does not show any evidence of thromboembolism Qualifiers: Pneumonia type: due to unspecified organism
--- NOTE | 2018-09-19 11:55 | P.HP ---
Certification for Inpatient Patient admitted to: Inpatient With expected LOS: >2 Midnights Patient will require the following post-hospital care: None Practitioner: I am a practitioner with admitting privileges, knowledge of patient current condition, hospital course, and medical plan of care. Services: Services provided to patient in accordance with Admission requirements found in Title 42 Section 412.3 of the Code of Federal Regulations Patient History Date of Service: 09/19/18 Reason for admission: Shortness of breath History of Present Illness: patient is a 43-year-old gentleman who came into the hospital with cough, congestion, fevers, and chills. Patient has a history of multiple myeloma and has been on chemotherapy. Patient is doing well with his chemotherapy treatments. He states that he had been doing well up until this episode. He was told in the past if he had a fever to come right into the hospital. [facility]. Otherwise, patient's renal function has been stable and he feels like he is been slowly improving. He has been short of breath and in the emergency room in [facility] revealed he was severely hypoxic. He had a CT of the chest done which indicated that he has some infiltrates. Because of his history of multiple myeloma and the fact that he is on chemotherapy the decision was made to admit him to the hospital and treat him aggressively. His fevers have been up to 100.7. Once again he is on immunosuppressant so this could be masking some of his symptoms. Will put him on broad-spectrum antibiotic coverage and will get Pulmonary and Oncology to see him as well. Patient will need inpatient admission because of his being immunosuppressed and having fevers and what looks to be of significant pneumonia. Patient incidentally also has conjunctivitis. Will treat with eyedrops. Allergies No Known Allergies Allergy (Verified 12/28/17 03:47) Home Medications: Aspirin [Aspirin EC 81 MG] 81 mg PO DAILY #90 tablet. 05/05/17 Allopurinol [Zyloprim*] 100 mg PO DAILY 08/02/18 Bumetanide [Bumex*] 4 mg PO BID 08/02/18 Carvedilol [Coreg*] 25 mg PO BID 08/02/18 Nitroglycerin [Nitrostat*] 0.4 mg SL 1X 08/02/18 Ondansetron [Zofran (Odt)*] 4 mg PO Q8H PRN 08/02/18 Pantoprazole [Protonix Tab*] 40 mg PO DAILY 08/02/18 Promethazine HCl 25 mg PO Q4H PRN 08/02/18 Amlodipine [Norvasc*] 09/19/18 Dexamethasone [Decadron*] 4 mg PO SEECOM 09/19/18 Lenalidomide [Revlimid] 1 tab PO SEECOM 09/19/18 Valacyclovir [Valtrex*] 500 mg PO DAILY 09/19/18 Valcade SEECOM 09/19/18 - Past Medical/Surgical History Diabetic: Yes -: Hypertension -: Diabetes mellitus type 2 -: Depression -: Anxiety -: multiple myeloma -: stage 3 renal disease -: Right knee surgery Psychosocial/ Personal History: The patient is . He has 4 children. 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 moist/pink, EOMI, Sclerae nonicteric Neck: Supple, 2+ carotid pulse no bruit, No LAD, Without JVD or thyroid abnormality Respiratory: Diminished, Expiratory wheezes Cardiovascular: Regular rate/rhythm, Normal S1 S2, No murmurs Gastrointestinal: Normal bowel sounds, Soft and benign, Non-distended, No tenderness Musculoskeletal: No swelling, No tenderness, Clubbing Integumentary: No rashes, Cyanosis Neurological: Normal speech, Normal tone, Sensation intact, Cranial nerves 3-12 intact, Normal affect, Abnormal gait, Abnormal strength - Studies Laboratory Data (last 24 hrs) 09/18/18 23:35: PT 12.8 H, INR 1.09, APTT 27.1 09/18/18 23:35: WBC 5.9, Hgb 9.2 L, Hct 26.8 L, Plt Count 95 L D 09/18/18 23:35: Sodium 146 H, Potassium 3.4 L, BUN 42 H, Creatinine 1.63 H, Glucose 79, Total Bilirubin 1.0, AST 10 L, ALT 20, Alkaline Phosphatase 51, Lipase 151 Microbiology Data (last 24 hrs): 09/18/18 23:35 Nasopharnyx Influenza Type A Antigen Screen - Final 09/18/18 23:35 Nasopharnyx Influenza Type B Antigen Screen - Final Assessment & Plan - Problems (Diagnosis) (1) Pneumonia Current Visit: Yes Status: Acute Qualifiers: Pneumonia type: due to unspecified organism (2) Diabetes mellitus Onset Date: 05/05/17 Current Visit: No Status: Chronic Qualifiers: Diabetes mellitus type: type 2 Diabetes mellitus 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 Diabetes mellitus complication status: with skin complications Diabetes mellitus complication detail: with other skin complication Qualified Code(s): E11.628 - Type 2 diabetes mellitus with other skin complications; 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 (3) GERD (gastroesophageal reflux disease) Current Visit: No Status: Chronic Qualifiers: Esophagitis presence: without esophagitis Qualified Code(s): K21.9 - Gastro -esophageal reflux disease without esophagitis (4) Hypertension Onset Date: 05/05/17 Current Visit: No Status: Chronic Qualifiers: Hypertension type: essential hypertension Qualified Code(s): I10 - Essential (primary) hypertension (5) Multiple myeloma Current Visit: No Status: Chronic Qualifiers: Multiple myeloma remission status: not in remission Qualified Code(s): C90.00 - Multiple myeloma not having achieved remission (6) Obstructive sleep apnea Current Visit: No Status: Chronic - Plan Plan: 1. Continue with IV antibiotics 2. Awaiting sputum and blood culture; procalcitonin level 3. Repeat chest x-ray in AM 4. CT scan of the chest revealed infiltrates with in this setting is most concerning for a pneumonia 5. Monitor WBC and ANC (absolute neutrophil ct.) and if decreases then contact isolation 6. Continue with nebs as needed 7. O2 per protocol 8. Continue with gentle hydration 9. Repeat labs including CBC and renal function in a.m. 10. Pulmonary consultation 11. GI and DVT prophylaxis Discharge Plan: Home Plan to discharge in: Greater than 2 days - Advance Directives Does patient have a Living Will: No Does patient have a Durable POA for Healthcare: No - Code Status/Comfort Care Code Status Assessed: Yes Code Status: Full Code Critical Care: No Time Spent Managing PTS Care (In Minutes): 50
[2018-09-19] MEDS ORDERED: LENALIDOMIDE PO SCH (12:00)
[2018-09-19] MEDS: FUROSEMIDE 40 MG/4 ML VIAL IV SCH (12:43)
[2018-09-19] MEDS ORDERED: MAGNESIUM SULFATE 1 gm IVPB 1 GM/100 ML BAG IV ONE (16:34)
[2018-09-19] MEDS ORDERED: GLUCAGON 1 MG/VIAL IM PRN (16:56)
[2018-09-19] MEDS ORDERED: D50W 25 GM/50 ML SYRINGE IV PRN (16:56)
[2018-09-19] MEDS ORDERED: BUMETANIDE 1 MG TABLET PO SCH (21:00)
[2018-09-19] MEDS: CARVEDILOL 25 MG TAB PO SCH (21:50)
[2018-09-20 04:30] LABS: Absolute Lymphocytes (CBC) 0.9 K/uL (0.7-4.9); Absolute Monocytes 1.1 K/uL (0.1-1.3); Absolute Neutrophil 4.9 K/uL (1.8-8.0); Basophils % 0.3 % (0-1.3); Eosinophils % 8.8 % (0-4.4); Hematocrit 25.1 % (39.6-49.0); Lymphocytes % 11.6 % (15.3-44.8); MPV 12.6 fL (7.6-11.3); RBC Red Blood Cell Count 2.53 M/uL (4.33-5.43)
[2018-09-20 04:42] LABS: Albumin 2.1 g/dL (3.4-5.0); Bilirubin Total 0.8 mg/dL (0.2-1.0); Magnesium 1.9 mg/dL (1.8-2.4); Phosphorus 2.4 mg/dL (2.5-4.9); Potassium 3.5 mmol/L (3.5-5.1); Protein, Total 5.1 g/dL (6.4-8.2)
[2018-09-20] MEDS ORDERED: Levofloxacin500mg IV 500 MG/100 ML BAG IV SCH (06:00)
--- NOTE | 2018-09-20 07:21 | RAD REPORT ---
EXAM DESCRIPTION: RAD - Chest Single View - 09/20/2018 6:09 am CLINICAL HISTORY: Pneumonia COMPARISON: September 18 chest film, September 19 CT study TECHNIQUE: AP portable chest image was obtained 0605 hours . FINDINGS: Lung volumes remain low. No new or progressive lung parenchymal process. Heart and vascula ture are normal. No measurable pleural effusion and no pneumothorax. No acute bony abnormality seen. No acute aortic findings suspected. IMPRESSION: No new or progressive cardiopulmonary finding.
[2018-09-20] MEDS: INSULIN -REGULAR HUMAN 50 UNIT/0.5 ML ML SQ SCH ×2 (07:30→12:18)
[2018-09-20] MEDS ORDERED: INSULIN -REGULAR HUMAN 50 UNIT/0.5 ML ML SQ SCH (07:30)
[2018-09-20] MEDS ORDERED: POTASSIUM PHOS IN 0.9 % NACL 15 MMOL/250 ML BAG IV ONE (08:00)
[2018-09-20] MEDS ORDERED: ALLOPURINOL 100 MG TAB PO SCH (09:00)
[2018-09-20] MEDS ORDERED: DEXAMETHASONE 4 MG TAB PO SCH (09:00)
[2018-09-20] MEDS ORDERED: VALACYCLOVIR 500 MG TAB PO SCH (09:00)
[2018-09-20] MEDS ORDERED: AMLODIPINE 10 MG TAB PO SCH (09:00)
[2018-09-20] MEDS ORDERED: levoFLOXacin 500 MG TAB PO SCH (09:00)
[2018-09-20] MEDS: ENOXAPARIN 40 MG/0.4 ML SQ SCH (09:00)
[2018-09-20] MEDS ORDERED: PANTOPRAZOLE 40MG TABLET PO SCH (09:00)
[2018-09-20] MEDS ORDERED: ASPIRIN EC 81 MG TAB PO SCH (09:00)
[2018-09-20] MEDS: FUROSEMIDE 40 MG/4 ML VIAL IV SCH (09:04)
[2018-09-20] MEDS: CARVEDILOL 25 MG TAB PO SCH (09:04)
[2018-09-20] MEDS: Gatifloxacin Ophth 0.5% (2.5 ML BTL) OPTH SCH (09:04)
--- NOTE | 2018-09-20 10:21 | P.DS ---
Admission Date: 09/19/18 Discharge Date: 09/20/18 Primary Care Provider: Dr. Webber; Oncology-Dr. Garza Disposition: ROUTINE DISCHARGE Discharge Condition: GOOD Reason for Admission: Shortness of breath Consultations: Pulmonary-Dr. Flores Procedures: CT chest: Scattered bilateral ground-glass opacities noted No pulmonary embolism. CXR: COMPARISON: December 2017 TECHNIQUE: PA and lateral views of the chest were obtained. FINDINGS: The lungs are underinflated on the frontal projection on the lateral view has motion degradation. There is minimal opacification in the left lung base suspicious for early pneumonia. No pulmonary edema, failure or volume overload. Right lung field is clear. Heart size is normal and central vasculature is within normal limits. No pleural effusion or pneumothorax seen. No acute bony finding noted. No aortic abnormality. IMPRESSION: Shallow inspiration exam suspicious for an early or minimal left lung base pneumonia. Follow up CXR: COMPARISON: September 18 chest film, September 19 CT study TECHNIQUE: AP portable chest image was obtained 0605 hours . FINDINGS: Lung volumes remain low. No new or progressive lung parenchymal process. Heart and vasculature are normal. No measurable pleural effusion and no pneumothorax. No acute bony abnormality seen. No acute aortic findings suspected. IMPRESSION: No new or progressive cardiopulmonary finding. Medical Problem List: Bilateral Pneumonia complicated with immunosuppressed patient and hypoxia Diabetes mellitus type 2 Hypertension GERD Obstructive sleep apnea Obesity, BMI 40 History of multiple myeloma Anemia of chronic disease with thrombocytopenia related to chemotherapy Brief History of Present Illness: 43-year-old male presented to the hospital with cough, congestion, fever and chills. Patient with history of multiple myeloma currently on chemotherapy. Due to his symptoms the patient came to the ER for further evaluation. Patient was found to be hypoxic. CT scan revealed bilateral infiltrates. Lactic acid and pro calcitonin unremarkable. Due to his presentation and history of multiple myeloma the patient was admitted for treatment. Hospital Course: Patient presented with shortness of breath, cough and congestion secondary to bilateral pneumonia. Patient was found to be hypoxic upon admission. Initial pro calcitonin and lactic acid unremarkable. Patient with history of multiple myeloma currently on chemotherapy. The patient was admitted for further treatment. The patient improved during his stay. White count remained within normal range. Repeat pro calcitonin unremarkable. Blood and sputum culture negative. Influenza test negative. Chest x-ray revealed improvement. Patient was seen and evaluated by pulmonology. CT scan revealed no pulmonary embolism. At discharge he is without any significant shortness of breath. Patient is not require oxygen at discharge. No further pulmonology intervention was required. Case discussed with pulmonology and his oncologist. Recommend to continue with Levaquin 500 mg daily for 7 days. Patient also on antiviral medication. This will be continued. Patient will be provided Tessalon Perles 100 mg 3 times a day as needed for cough and Pro air 2 puffs 3 times a day as needed for shortness of breath. Recommend to recheck chest x-ray in 2-4 weeks to monitor resolution. Patient has follow up with oncology in the next 2 days. Patient may follow up with pulmonology in 2-4 weeks to monitor his progress. Patient may require mask at discharge to protect him from family members that maybe ill. [place] precautions education will be provided. Patient with hypertension. Blood pressure has remained stable. At discharge he will continue with Norvasc 10 mg daily, carvedilol 25 mg twice daily and aspirin 81 mg daily. Recommend to maintain blood pressures less 150/80. Further adjustment can be done by his PCP. Patient with GERD. Patient will continue with Protonix 40 mg daily. Patient with history of multiple myeloma on chemotherapy. Patient will continue with his medications as directed by oncology. Case discussed with oncology. Oncology agrees with current plan of care. Patient has follow up with oncology in the next 2 days. Patient with history of diabetes mellitus type 2. Patient will continue with his current medication. Further adjustment in medication can be done by his PCP. Patient with anemia of chronic disease and thrombocytopenia. Both related to his chemotherapy. Case discussed with oncology. Recommend to recheck CBC in 1- 2 weeks to monitor his progress. Oncology to follow up on lab. Lifestyle modification education provided. Patient will continue with his other medications at discharge. Vital Signs/Physical Exam: Temp Pulse Resp BP Pulse Ox 97.9 F 85 16 147/79 H 95 09/20/18 04:00 09/20/18 09:04 09/20/18 04:00 09/20/18 09:04 09/20/18 04:00 General: Alert, In no apparent distress, Oriented x3, Cooperative HEENT: Atraumatic Neck: Supple Respiratory: Clear to auscultation bilaterally, Normal air movement Cardiovascular: Normal pulses, Regular rate/rhythm Gastrointestinal: Normal bowel sounds, Soft and benign, Non-distended, No tenderness, No masses, No rebound, No guarding Musculoskeletal: No erythema, No tenderness, No warmth Integumentary: No tenderness/swelling, No erythema, No warmth, No cyanosis Neurological: Normal speech, Normal strength at 5/5 x4 extr, Normal tone, Normal affect Laboratory Data at Discharge: WBC 7.6 K/uL (4.3-10.9) 09/20/18 03:43 Hgb 8.5 g/dL (13.6-17.9) L 09/20/18 03:43 Hct 25.1 % (39.6-49.0) L 09/20/18 03:43 Plt Count 78 K/uL (152-406) L 09/20/18 03:43 PT 12.8 SECONDS (9.5-12.5) H 09/18/18 23:35 INR 1.09 09/18/18 23:35 APTT 27.1 SECONDS (24.3-36.9) 09/18/18 23:35 Sodium 145 mmol/L (136-145) 09/20/18 03:43 Potassium 3.5 mmol/L (3.5-5.1) 09/20/18 03:43 BUN 33 mg/dL (7-18) H 09/20/18 03:43 Creatinine 1.24 mg/dL (0.55-1.3) 09/20/18 03:43 Glucose 134 mg/dL (74-106) H 09/20/18 03:43 Phosphorus 2.4 mg/dL (2.5-4.9) L 09/20/18 03:43 Magnesium 1.9 mg/dL (1.8-2.4) 09/20/18 03:43 Total Bilirubin 0.8 mg/dL (0.2-1.0) 09/20/18 03:43 AST 11 U/L (15-37) L 09/20/18 03:43 ALT 19 U/L (12-78) 09/20/18 03:43 Alkaline Phosphatase 56 U/L (45-117) 09/20/18 03:43 Lipase 151 U/L (73-393) 09/18/18 23:35 Home Medications: Aspirin [Aspirin EC 81 MG] 81 mg PO DAILY #90 tablet. 05/05/17 Allopurinol [Zyloprim*] 100 mg PO DAILY 08/02/18 Bumetanide [Bumex*] 4 mg PO BID 08/02/18 Carvedilol [Coreg*] 25 mg PO BID 08/02/18 Nitroglycerin [Nitrostat*] 0.4 mg SL 1X 08/02/18 Ondansetron [Zofran (Odt)*] 4 mg PO Q8H PRN 08/02/18 Pantoprazole [Protonix Tab*] 40 mg PO DAILY 08/02/18 Promethazine HCl 25 mg PO Q4H PRN 08/02/18 Amlodipine [Norvasc*] 09/19/18 Dexamethasone [Decadron*] 4 mg PO SEECOM 09/19/18 Lenalidomide [Revlimid] 1 tab PO SEECOM 09/19/18 Valacyclovir [Valtrex*] 500 mg PO DAILY 09/19/18 Valcade SEECOM 09/19/18 Albuterol Sulfate [Proair Hfa] 2 puff IH TID PRN #1 hfa.[email or web address] 09/20/18 Benzonatate [Tessalon Perle] 100 mg PO TID PRN #10 cap 09/20/18 levoFLOXacin [Levaquin*] 500 mg PO DAILY #7 tab 09/20/18 New Medications: Albuterol Sulfate [Proair Hfa] 2 puff IH TID PRN #1 hfa.aer.ad PRN Reason: Shortness Of Breath Benzonatate [Tessalon Perle] 100 mg PO TID PRN #10 cap PRN Reason: Cough levoFLOXacin [Levaquin*] 500 mg PO DAILY #7 tab Patient Discharge Instructions: 1. Recommend a follow up with his PCP in 1 week to follow up this hospitalization. 2. Patient presented with shortness of breath, cough and congestion secondary to bilateral pneumonia. Patient was found to be hypoxic upon admission. Initial pro calcitonin and lactic acid unremarkable. Patient with history of multiple myeloma currently on chemotherapy. The patient was admitted for further treatment. The patient improved during his stay. White count remained within normal range. Repeat pro calcitonin unremarkable. Blood and sputum culture negative. Influenza test negative. Chest x-ray revealed improvement. Patient was seen and evaluated by pulmonology. CT scan revealed no pulmonary embolism. At discharge he is without any significant shortness of breath. Patient is not require oxygen at discharge. No further pulmonology intervention was required. Case discussed with pulmonology and his oncologist. Recommend to continue with Levaquin 500 mg daily for 7 days. Patient also on antiviral medication. This will be continued. Patient will be provided Tessalon Perles 100 mg 3 times a day as needed for cough and Pro air 2 puffs 3 times a day as needed for shortness of breath. Recommend to recheck chest x-ray in 2-4 weeks to monitor resolution. Patient has follow up with oncology in the next 2 days. Patient may follow up with pulmonology in 2-4 weeks to monitor his progress. Patient may require mask at discharge to protect him from family members that maybe ill. [place] precautions education will be provided. 3. Patient with hypertension. Blood pressure has remained stable. At discharge he will continue with Norvasc 10 mg daily, carvedilol 25 mg twice daily and aspirin 81 mg daily. Recommend to maintain blood pressures less 150/80. Further adjustment can be done by his PCP. 4. Patient with GERD. Patient will continue with Protonix 40 mg daily. 5. Patient with history of multiple myeloma on chemotherapy. Patient will continue with his medications as directed by oncology. Case discussed with oncology. Oncology agrees with current plan of care. Patient has follow up with oncology in the next 2 days. 6. Patient with history of diabetes mellitus type 2. Patient will continue with his current medication. Further adjustment in medication can be done by his PCP. 7. Patient with anemia of chronic disease and thrombocytopenia. Both related to his chemotherapy. Case discussed with oncology. Recommend to recheck CBC in 1-2 weeks to monitor his progress. Oncology to follow up on lab. 8. Lifestyle modification education provided. Patient will continue with his other medications at discharge. Diet: AHA Activity: Ad smita Time spent managing pt's care (in minutes): 55
--- NOTE | 2018-09-20 11:04 | RAD REPORT ---
EXAM DESCRIPTION: CT - Chest For Pe Angio - 09/19/2018 1:21 am CLINICAL HISTORY: The patient is 43 years old and is Male; Cough;Dyspnea TECHNIQUE: Axial computed tomographic angiography images of the chest with intravenous contrast usin g pulmonary embolism protocol. Sagittal and coronal reformatted images were created and reviewed. This CT exam was performed using one or more of the following dose reduction techniques: automated exposure control, adjustment of the mA and/or kV according to patient size, and/or use of iterative reconstruction technique. MIP reconstructed images were created and reviewed. COMPARISON: CTA of the chest December 27, 2017. FINDINGS: ARTIFACTS: The exam is suboptimal secondary to motion artifact. PULMONARY ARTERIES: Streak artifact from the bolus of contrast and motion limits evaluation of t he arteries specifically in the upper lobes. The main pulmonary arteries and bilateral lower right mi ddle lobe pulmonary arteries opacify normally and are without filling defect. AORTA: No acute findings. No thoracic aortic aneurysm. LUNGS: Scattered nonspecific groundglass opacities are present. PLEURAL SPACE: Unremarkable. No significant effusion. No pneumothorax. HEART: Unremarkable. No cardiomegaly. No significant pericardial effusion. No evidence of RV dysfunction. BONES/JOINTS: No acute fracture. No dislocation. SOFT TISSUES: Unremarkable. LYMPH NODES: Unremarkable. No enlarged lymph nodes. IMPRESSION: 1. Streak artifact from the bolus of contrast and motion limits evaluation of the sheree dominic specifically in the upper lobes. The main pulmonary arteries and bilateral lower right middle lo be pulmonary arteries opacify normally and are without filling defect. 2. Subtle scattered groundglass opacities. Groundglass opacification is a nonspecific finding and n ot necessarily indicative of significant pathology. However, in the appropriate clinical setting, pul monary edema, pneumonia, or various causes of alveolitis should be considered. Electronically signed by: Cristal Polanco MD 09/19/2018 1:15 AM CDT Due to temporary technical issues with the PACS/Fluency reporting system, reports are being signed by the in house radiologist as a courtesy to ensure prompt reporting. The interpreting radiologist is f ully responsible for the content of the report.
--- NOTE | 2018-09-20 11:51 | P.PN ---
Subjective Date of Service: 09/20/18 Primary Care Provider: Dr. Webber; Oncology-Dr. Garza Chief Complaint: Shortness of breath Subjective: Improving (Patient is improving although is been complaining of some coughing spells no fever) Review of Systems General: Weakness Respiratory: Cough, Shortness of Breath Physical Examination - Vital Signs Temperature: 98.4 F Blood Pressure: 147/79 Pulse: 85 Respirations: 18 Pulse Ox (%): 92 - Physical Exam General: Alert, Oriented x3 Respiratory: Clear to auscultation bilaterally Cardiovascular: No edema, Normal pulses Assessment & Plan - Problems (Diagnosis) (1) Pneumonia Current Visit: Yes Status: Acute Plan: Patient is stable complaining of coughing spells possible discharge today the knee with levofloxacin he is immunocompromised and a cough syrup follow with me in 2 weeks cultures all negative Qualifiers: Pneumonia type: due to unspecified organism
[2018-09-20 11:54] VITALS: O2SAT 96
[2018-09-20 12:30] VITALS: BP 149/77; TEMP 99
== END 2018-09-20 13:32 | disposition home or self-care (01) | DRG 194 ==
LOC: ER 21:50 → ERHOLD 09-19 02:13 → 4TH 09-19 03:19
PROVIDERS: ADMIT Hospitalist; ATTEND Hospitalist
DX: J18.9 Pneumonia, unspecified organism (principal); C90.00 Multiple myeloma not having achieved remission; Z68.41 Body mass index [BMI] 40.0-44.9, adult; R09.02 Hypoxemia; I10 Essential (primary) hypertension; K21.9 Gastro-esophageal reflux disease without esophagitis; E11.9 Type 2 diabetes mellitus without complications; D64.9 Anemia, unspecified; D69.6 Thrombocytopenia, unspecified; D69.59 Other secondary thrombocytopenia; T45.1X5A Adverse effect of antineoplastic and immunosuppressive drugs, initial encounter; G47.33 Obstructive sleep apnea (adult) (pediatric); E66.9 Obesity, unspecified
CPT/HCPCS: 36415; 71045; 71046; 71275; 80048; 80053; 80076; 81003; 81015; 82550; 82553; 82805; 82962; 83605; 83690; 83735; 83880; 84100; 84145; 84484; 85025; 85610; 85730; 86850; 86900; 86901; 87040; 87070; 87205; 87804; 93005; 94640; 94760; 96365; 99285; J1650; J1940; J2543; J3475; J7030; Q9967

== ENCOUNTER 2020-11-05 14:23 | Inpatient (IN) | payer OTHER ==
--- OUTSIDE RECORDS SUMMARY | 2020-11-05 14:31 | XMS REPORT | Continuity of Care Document ---
:[address] [facility] t Address [address] [place] [address] Care Team Providers Name Role Phone [phone] Primary Care Physician Unavailable Vikki Yen Attending Clinician Kathryn HENDERSON, B Attending Clinician Costa Lebron RN Attending Clinician Maria Ines PERALTA Attending Clinician Unavailable Juana VAZQUEZ Attending Clinician JUANA Attending Clinician Unavailable Alcira Espitia RN Attending Clinician Unavailable Niko Guadarrama Attending Clinician Unavailable David Ramos RN Attending Clinician Unavailable Jose Luis SANTIAGO, Costa Attending Clinician Unavailable John SANTIAGO, M Attending Clinician Unavailable Ana RN, P Attending Clinician Unavailable Susi HENDERSON, A Attending Clinician Shilpa GOLDMAN Attending Clinician Unavailable Chely VAZQUEZ Attending Clinician CHELY Attending Clinician Unavailable HERBIE Attending Clinician Unavailable Ezequiel VAZQUEZ Attending Clinician EZEQUIEL Attending Clinician Unavailable Nicci VAZQUEZ Attending Clinician NICCI Attending Clinician Unavailable Vikki WHITAKER Attending Clinician Unavailable Hamilton SANTIAGO, Feliciano Attending Clinician Toshia Riggs RPH Attending Clinician Melina Jacques PharmD Attending Clinician Jacqueline RN, Maria Ines Attending Clinician Unavailable Orville Woods RN Attending Clinician Tracie Guido MA Attending Clinician Unavailable Tobi Pang, Artie Attending Clinician Suleam SANTIAGO, R Attending Clinician Unavailable Carrie HENDERSON Attending Clinician Unavailable CARRIE Attending Clinician Unavailable Mehran WORSHIP LEADER, E Attending Clinician Shanon SANTIAGO Attending Clinician Unavailable Rebeca LAURENT Attending Clinician Unavailable Danilo IGNACIO Attending Clinician Unavailable Asad HENDERSON, R. Attending Clinician Isadora SANTIAGO III P Attending Clinician Unavailable Madalyn PEÑA, S Attending Clinician Unavailable Robert RN Attending Clinician Unavailable Elisabet VAZQUEZ Attending Clinician ELISABET Attending Clinician Unavailable Adilson SANTIAGO, B Attending Clinician Unavailable Dean SANTIAGO, Feliciano. Attending Clinician Unavailable Kandi Oneil RN P Attending Clinician Unavailable Shana RN, L Attending Clinician Unavailable Corona VAZQUEZ Attending Clinician Vikki LOBO Attending Clinician Unavailable Deon SANTIAGO, F Attending Clinician Lashell WOLFF, T Attending Clinician Catarina SANTIAGO, W Attending Clinician Unavailable Krystal Clinton MA Attending Clinician Unavailable Torri SANTIAGO, T Attending Clinician Unavailable Lindsey VAZQUEZ Attending Clinician Rolando Parmar RN Attending Clinician Karla VAZQUEZ, Sandra Attending Clinician ROC Attending Clinician Unavailable Roc WOLFF Attending Clinician Ti VAZQUEZ Attending Clinician Valentino Attending Clinician Markell SANTIAGO Attending Clinician Unavailable Jeff Lewis MD Attending Clinician Fabian SANTIAGO Attending Clinician Unavailable Jennifer Goldsmith MD Attending Clinician Fredo Groves NP Attending Clinician Ana SANTIAGO Attending Clinician Unavailable MD JEFF LEWIS Attending Clinician Unavailable Donna PUTNAM Attending Clinician Unavailable BARNEY Attending Clinician Unavailable FANGMEYER Attending Clinician Unavailable BRANDT PANDYA Attending Clinician Unavailable JUANA Admitting Clinician Unavailable JOSHUA Admitting Clinician Unavailable MD JOSHUA LEWIS-Farida Admitting Clinician Unavailable Payers Payer Name Policy Type Policy Effective Date Expiration Date Sour ce Number CIGNA SCTCIGNA [id number] 2018 MD Cm on LIFESOURCE 00:00:00 [id number] 16/2019-PresentS CT Access Network CIGNA MANAGED [id number] 2016 MD Piero jha CARECIGNA O 00:00:00 POS OPEN [id number] 2016-Presen tHMO CIGNACIGNA OPEN [id number] 2016 [place] ACCESS/NETWORKxx 00:00:00 Methodis t [id number] 7-PresentHMO Problems Condition Condition Condition Status Onset Resolution Last Treating Co mments Source Name Details Category Date Date Treatment Clinician Date At risk At risk Disease Active for for 5 Anderso falling falling 00:00: n 00 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 5-04 Anders[facility] disease disease 00:00: n 00 Immunosupp Immunosupp Disease Active 0 M D ression ression 5-04 Anderso 00:00: n 00 Antineopla Antineopla Disease Active M D stic stic 5-04 Anders[facility] chemothera chemothera 00:00: n py induced py induced 00 anemia anemia Gastro-eso Gastro-eso Disease Active M D phageal phageal 4-07 Anderso reflux reflux 00:00: n disease disease 00 without without esophagiti esophagiti s s Obstructiv Obstructiv Disease Active M D e sleep e sleep 2-10 [facility] apnea apnea 00:00: n 00 ESRD (end ESRD (end Disease Active 2019-04 Overview: [place] stage stage 1-12 Formattin Methodi renal renal 00:00: g of this st disease) disease) 00 note might be different from the original. Added automatic ally from request for surgery [id number] Hypertensi Hypertensi Disease Active Last M D on on 06-10 Assessmen Anderso 00:00: t & Plan: n 00 Formattin g of this note might be different from the original. He reports that blood pressures at home are checked routinely with SBP's in the 140s. Healthy lifestyle modificat ions were reinforce d. Patient was advised to increase nifedipin e to 90 milligram s daily. He will also continue carvedilo l 25 milligram s twice a day. Patient was advised to monitor his blood pressures twice daily and keep a blood pressure log. He will bring this log to his follow-up visit. Type 2 Type 2 Disease Active diabetes diabetes 04-15 Toi o mellitus mellitus 00:00: n with with 00 hyperglyce hyperglyce sandee sandee Current Current Disease Active MD use of use of 04-15 [facility] insulin insulin 00:00: n 00 Chronic Chronic Disease Active Last diastolic diastolic 04-14 Assessmen Shilpa vallejorsbilly congestive congestive 00:00: t & Plan: n heart heart 00 Formattin failure failure g of this note might be different from the original. Mr. Kruse is NYHA functiona l class II. He has ongoing lower extremity edema (improved compared to last visit in 04/2019) and unchanged exertiona l dyspnea. He however shows no signs of decompens ated heart failure currently . Most recent echocardi ogram shows an ejection fraction of 65% and diastolic dysfuncti on. He will therefore continue Bumex 2 milligram s twice a day. He will also continue carvedilo l 25 milligram s twice a day. Patient also reports that there is a plan to initiate peritonea l dialysis by his nephrolog ist prior to her going SCT in a couple of months. 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 t & Plan: n 00 Formattin g of this note might be different from the original. Recently, the patient has been experienc ing poorly controlle d BP's at home with SBP 160's which likely reflects increasin g volume overload. In our clinic today, the patient has normal BP noted. However, on exam he has evidence of significa nt volume overload. I have recommend ed that he be admitted for further evaluatio n and probable treatment with IV diuretics . The patient will likely need to be managed by the Nephrolog y service as well. With respect to his current anti-hype rtensive regimen, he will likely benefit from discontin uation of Amlodipin e given his severe LE edema. Further recommend ations for his BP control can be provided on an inpatient basis. I have recommend ed for the patient to be transferr ed to the now. Chest pain Chest pain Disease Active Last M D 12-27 Assessmen Andlex 00:00: t & Plan: n 00 Formattin g of this note might be different from the original. Patient reports an episode of atypical chest pain approxima tely a month and a half ago. Based on his risk factors, pending SCT, and ongoing exertiona l dyspnea, I advised him to undergo nuclear stress testing in effort to rule out ischemia. Continue aspirin 81 milligram s daily. We will also obtain a lipid panel prior to his next visit. Acute Acute Disease Active MD confusion confusion 12-27 Nahid rso 00:00: n 00 Other Other Disease Active MD specified specified Nahid rso counseling counseling n Acute-on-c Acute-on-c Disease Active M D hronic hronic Anderso renal renal n failure failure Sleep Sleep Disease Active MD related related Anderso hypoxia hypoxia n Anemia Anemia Disease Active co-occurre co-occurre An derso nt and due nt and due n to chronic to chronic kidney kidney disease disease stage 3 stage 3 Allergies, Adverse Reactions, Alerts This patient has no known allergies or adverse reactions. Family History Family Member Diagnosis Comments Start Date Stop Date Source Natural brother Hypertension MD Nahid rodriguez Natural daughter No Known Problems Costa Pantoja Natural father Diabetes MD Piero jha Natural father Hypertension MD Russo son Natural mother Diverticulitis Natural sister Diabetes MD Piero jha Natural son Valvular heart disease Costa Pantoja Natural son No Known Problems Social History Social Habit Start Date Stop Date Quantity Comments Source History of Cigarette Smoker MD [facility] B[facility] Tobacco use and 2020-08-17 2020-08-17 Never used MD Cm on exposure 00:00:00 00:00:00 Alcohol intake 2020-08-17 2020-08-17 Current drinker MD Carmencita coker 00:00:00 00:00:00 of alcohol (finding) History SDOH 2020-03-15 2020-03-15 3 [place] [facility] Alcohol Frequency 00:00:00 00:00:00 History [facility] 2020-03-15 2020-03-15 1 [place] [facility] Alcohol Std 00:00:00 00:00:00 Drinks Tobacco Comment 2018-12-28 2018-12-28 Socially, years MD Shilpa pina 00:00:00 00:00:00 ago, never bought his own Sex [birth year] At [birth year] MD Cm on 00:00:00 00:00:00 Smoking Status Start Date Stop Date Source Former smoker 2020-08-17 00:00:00 2020-08-17 00:00:00 MD Russo son Current some day smoker 2020-03-16 00:00:00 Mckenna Ceballos Medications Ordered Filled Start Stop Current Ordering Indication Dosage Frequency Signature Comments Components Source Medication Medication Date Date Medication? Clinician (SIG) Name Name sulfamethox Yes End stage 1{tbl} Take 1 MD azole-trime 6-21 renal tablet by An micki oprim 00:00: disease mouth 3 n (BACTRIM 00 (three) SS) 400 times a mg-80 mg week per tablet Thursday, Thursday and Thursday. Take pill after dialysis cholecalcif Yes 400U Take 400 MD precious, 5-17 Units by Anderso vitamin D3, 20:17: mouth n (VITAMIN 19 daily. D3) 5,000 units tab tablet calcium-mag Yes 1{tbl} Take 1 MD nesium-zinc 5-17 tablet by And erso [id number] 20:17: mouth n mg tab 19 daily. nitroglycer Yes .4mg Place 0.4 M D in 5-17 mg under Anderso (NITROSTAT) 20:17: the tongue n 0.4 mg SL 19 as needed. tablet Call 911 if no relief after 3 doses carvedilol Yes Hypertensio 25mg Take 1 MD (COREG) 25 5-14 n tablet (25 And erso mg tablet 00:00: mg) by n 00 mouth twice daily. sulfamethox 0 202- No End stage 1{tbl} Take 1 MD azole-trime 5-14 06-21 renal tablet by A nderso thoprim 00:00: 00:00 disease mouth 3 n (BACTRIM 00 :00 (three) SS) 400 times a mg-80 mg week per tablet Thursday, Thursday and Thursday. Take pill after dialysis pregabalin 75mg Take 75 mg MD (LYRICA) 75 08-14 05-04 by mouth And erso mg capsule 23:42: 00:00 twice n 56 :00 daily. valACYclovi Yes Light chain 500mg Take 1 MD r (VALTREX) 5-04 myeloma tablet And erso 500 mg 00:00: (500 mg) n tablet 00 by mouth daily. On dialysis days, take dose AFTER session is complete. ondansetron Yes Light chain 8mg Dissolve 1 MD (ZOFRAN-ODT 08-14 myeloma tablet (8 Anderso ) 8 mg 00:00: mg) on the n disintegrat 00 tongue ing tablet every 8 (eight) hours as needed for nausea or vomiting. oxyCODONE Yes Neoplasm 2.5mg Take half MD (ROXICODONE 08-14 related of shilpa Russo so ) 5 mg 00:00: pain tablet n immediate 00 (acute) (2.5 mg) release (chronic) by mouth tablet every 4 (four) hours as needed for pain. SITagliptin Yes Type 2 25mg Take 1 MD (Januvia) -04 diabetes tablet (25 Anderso 25 mg 00:00: mellitus mg) by n tablet 00 with mouth hyperglycem daily. ia Hold if blood sugar is less than 80. insulin Yes Type 2 25U Inject 25 MD degludec -04 diabetes Units Toi o 100 unit/mL 00:00: mellitus under the n (3 mL) 00 with skin insulin pen hyperglycem daily. ia According to instructio ns provided insulin Current use 25U Inject 25 MD degludec 08-14 05-04 of insulin Units And erso (Tresiba 00:00: 00:00 under the n U-100 00 :00 skin daily Insulin) with 100 unit/mL breakfast. soln Hold if Blood sugar is < 80 in the morning. If Blood Surgar is > 180 in the morning, increase dose to 30 units subcutaneo usly that morning. SITagliptin 2020- No Type 2 25mg Take 1 M D (Januvia) 08-14- diabetes tablet (25 Anderso 25 mg 00:00: 00:00 mellitus mg) by n tablet 00 :00 with mouth hyperglycem daily. ia Hold if blood sugar is less than 80. insulin 2020- No Current use 25U Inject 25 MD degludec 08-14- of insulin Units And erso (Tresiba 00:00: 00:00 under the n U-100 00 :00 skin daily Insulin) with 100 unit/mL breakfast. soln Hold if Blood sugar is less than 80 in the morning. If Blood Surgar is greater than 180 in the morning, increase dose to 30 units subcutaneo usly that morning. pregabalin Yes Light chain 75mg Take 1 MD (LYRICA) 75 5-03 myeloma capsule An derso mg capsule 00:00: (75 mg) by n 00 mouth at bedtime. cetirizine Yes Light chain 10mg Take 1 MD (ZyrTEC) 10 5-03 myeloma tablet (10 Anderso mg tablet 00:00: mg) by n 00 mouth nightly as needed for allergies or rhinitis. [facility] doxazosin Yes Light chain 2mg Take 1 MD (CARDURA) 2 5-03 myeloma tablet (2 Anderso mg tablet 00:00: mg) by n 00 mouth at bedtime. cetirizine 2020- No 10mg Take 10 mg MD (ZyrTEC) 10 -30 07-19 by mouth And erso mg tablet 17:08: 00:00 daily as n 12 :00 needed for allergies. diphenhydrA 2020- No 25mg Take 25 mg MD MINE -30 07-19 by mouth Anderso (BENADRYL) 16:25: 00:00 nightly as n 25 mg 35 :00 needed for tablet sleep. sodium 2020- No 1{spray Apply 1 MD chloride 07-30-19 } spray to Toi o (OCEAN) 16:25: 00:00 each nare n 0.65% nasal 35 :00 as needed. spray pantoprazol Yes Gastro-esop 40mg Take 1 MD e 4-10 hageal tablet (40 Anderso (Protonix) 00:00: reflux mg) by n 40 mg EC 00 disease mouth tablet without daily with esophagitis breakfast. , not otherwise specified heparin, 2020- No Light chain Inject 2 MD PF, 100 4- 04-19 myeloma mL (200 Karan so units/mL 00:00: 00:00 units) n injection 00 :00 into each lumen of central venous catheter daily as directed. Discard excess volume to administer 2 mL. sodium No Light chain Inject 10 MD chloride 4-10 14-19 myeloma mL (1 Toi o (NS) 0.9% 00:00: 00:00 syringe) n flush 00 :00 into each syringe 10 lumen of mL central venous catheter daily as directed. Dialyvite Yes 1{tbl} Take 1 MD 800-Ultra D 3-03 tablet by And erso 0.8-2,000 00:00: mouth n mg-unit tab 00 every other day. lidocaine-p 2021- No Apply [place] rilocaine 204 02-04 topically Meth sabas (EMLA) 00:00: 23:[address] 2.5-2.5 % 00 :00 for mild cream pain. Apply to fistula site 30-45 minutes before dialysis. calcium-mag 2019-04 Yes 1{tbl} Take 1 [place] nesium-zinc 2-22 tablet by Met coyne [id number] 14:23: mouth. st mg tablet 37 cetirizine 2019-04 Yes 10mg QD Take 10 mg [place] (ZyrTEC) 10 2-22 by mouth Meth sabas MG tablet 14:23: nightly as st 37 needed. diphenhydrA 2019-04 Yes 25mg Take 25 mg [place] MINE 2-22 by mouth. Methodi (BENADRYL) 14:23: st 25 mg 37 tablet HYDROcodone 2019-04 2020- No acute pain 1{tbl} Q6H Take 1 [place] -acetaminop 2-03 12-08 tablet by Me luis armando alfaro (Bandon) 00:00: 23:[address] 5-325 mg 00 :00 every 6 per tablet (six) hours as needed for moderate pain for up to 5 days .acute pain. Max Daily Amount: 4 tablets doxazosin 2019-04 Yes 2mg QD Take 2 mg Tara ston (CARDURA) 2 1-17 by mouth Meth sabas MG tablet 00:00: nightly. st 00 ixazomib 2019-04 Yes Takes 3 [place] (Ninlaro) 4 0-21 Mondays Metho di mg capsule 00:00: out of the s t 00 month, one tablet. Dialyvite 2019-04 Yes 1{tbl} QD Take 1 [place] 800-Ultra D 0-14 tablet by Met hodi 0.8-2,000 00:00: mouth st mg-unit 00 daily. tablet promethazin Yes 5mL QD Take 5 mL [place] e-codeine 7-09 by mouth Method i (PHENERGAN 00:00: nightly as s t with 00 needed. CODEINE) 6.25-10 mg/5 mL syrup cholecalcif 2020- No 5000U Take 5,000 [place] precious, 6-23 06-23 Units by Methodi vitamin D3, 00:00: 23:[address] 5,000 unit 00 :00 capsule NIFEdipine Yes 90mg QD Take 90 mg [place] XL 5-27 by mouth Methodi (PROCARDIA 00:00: daily. st XL) 90 MG 00 24 hr tablet carvedilol 2020- No Hypertensio 25mg Take 1 MD (COREG) 25 5-27 05-14 n tablet (25 An derso mg tablet 00:00: 00:00 mg) by n 00 :00 mouth twice daily. NIFEdipine 2020- No Hypertensio 90mg Take 1 MD (PROCARDIA 5-27 05-04 n tablet (90 An derso XL) 90 mg 00:00: 00:00 mg) by n 24 hr 00 :00 mouth tablet daily. pregabalin Yes 75mg Take 75 mg [place] (LYRICA) 75 5-07 by mouth. Met hodi MG capsule 00:00: st 00 carvediloL Yes 25mg Q.5D Take 25 mg [place] (COREG) 25 3-02 by mouth 2 Met hodi MG tablet 00:00: (two) st 00 times a day with meals. HYDROcodone Yes 1{tbl} Take 1 [place] -acetaminop 1-15 tablet by Met hodi hen (NORCO) 00:00: mouth. st 5-325 mg 00 per tablet HYDROcodone 2020- No 1{tbl} Take 1 M D -acetaminop 1-15 04-19 tablet by An derso hen (EpicForce) 00:00: 00:00 mouth n 5 mg-325 mg 00 :00 every 12 per tablet (twelve) hours as needed. insulin Yes 80U Inject 80 [place] degludec 04-21 Units Methodi 100 unit/mL 00:00: under the s t solution 00 skin. blood sugar Yes Current use Use to MD diagnostic 04-21 of insulin check An derso strp 00:00: blood n 00 glucose 1-2 times daily insulin 2020- No Current use 25U Inject 25 MD degludec 09 05-04 of insulin Units And erso (TRESIBA 00:00: 00:00 under the n U-100 00 :00 skin daily INSULIN) with 100 unit/mL breakfast. soln REVLIMID 10 2018-04- No 1{capsu Take 1 MD mg capsule -18 -19 le} capsule by An derso 00:00: 00:00 mouth n 00 :00 daily. Take x 14 DAYS/ 7 days off. dexamethaso 2018-04 Yes 5{tbl} Take 5 [place] ne 2-16 tablets by Methodi (DECADRON) 00:00: mouth. st 4 MG tablet 00 dexamethaso 2018-04- No 5{tbl} Take 5 M D ne 2-16 04-19 tablets by Anderso (DECADRON) 00:00: 00:00 mouth n 4 mg tablet 00 :00 daily. Take day of & day after chemo. bumetanide 2018-04- No 2{tbl} Take 2 MD (BUMEX) 1 1-11 11-11 tablets by And erso mg tablet 00:00: 05:59 mouth n 00 :00 twice daily. doxazosin 2018-04- No 2mg Take 2 mg MD (CARDURA) 2 1-11 11-11 by mouth And erso mg tablet 00:00: 05:59 at n 00 :00 bedtime. sildenafiL 2018-04 Yes 100mg Take 100 [place] (VIAGRA) 0-03 mg by Methodi 100 MG 00:00: mouth as st tablet 00 needed. acetaminoph No Multiple 1000mg Take 2 MD en 12-28 04-19 myeloma tablets Anderso (TYLENOL) 00:00: 00:00 (1,000 mg) n 500 mg 00 :00 by mouth tablet every 6 (six) hours as needed for mild pain or fever. aspirin 81 2020- No 1{tbl} Take 1 MD mg EC 11-27 05-04 tablet by Anderso tablet 00:00: 00:00 mouth n 00 :00 daily. valACYclovi Yes 500mg Take 500 [place] r (VALTREX) 6-08 mg by Methodi 500 MG 00:00: mouth. st tablet 00 valACYclovi 2020- No 500mg Take 500 MD r (VALTREX) 6-08 05-04 mg by Toi o 500 mg 00:00: 00:00 mouth n tablet 00 :00 daily. tadalafiL Yes 1{tbl} Q24H Take 1 [place] (CIALIS) 10 5-22 tablet by Met hodi MG tablet 00:00: mouth st 00 daily as needed. tadalafil 2020- No 1{tbl} Take 1 MD (CIALIS) 10 5-22 04-19 tablet by An derso mg tablet 00:00: 00:00 mouth n 00 :00 daily as needed. nitroglycer Yes .4mg Place 0.4 [place] in 1-08 mg under Methodi (NITROSTAT) 00:00: the st 0.4 MG SL 00 tongue. tablet ondansetron Yes 4mg Take 4 mg [place] ODT 1-04 by mouth. Methodi (ZOFRAN-ODT 00:00: st ) 4 MG 00 disintegrat ing tablet ondansetron No 4mg Dissolve 4 MD (ZOFRAN-ODT 1-04 05-04 mg on the An derso ) 4 mg 00:00: 00:00 tongue 2 n disintegrat 00 :00 (two) ing tablet times a day as needed. aspirin 2018-0 Yes TAKE ONE [place] (ECOTRIN) 1-23 (1) Methodi 81 MG 00:00: TABLET(S) st enteric 00 BY MOUTH coated ONCE A tablet DAY. Vital Signs Vital Name Observation Time Observation Value Comments Source WEIGHT 2020-08-24 09:41:00 120.8 kg WEIGHT 2020-08-24 09:41:00 120.8 kg WEIGHT 2020-08-21 16:12:02 121 kg WEIGHT 2020-08-21 16:12:02 121 kg WEIGHT 2020-08-21 09:47:00 120.2 kg WEIGHT 2020-08-21 09:47:00 120.2 kg WEIGHT 2020-08-17 11:48:00 119.5 kg WEIGHT 2020-08-17 11:48:00 119.5 kg WEIGHT 2020-08-15 08:56:00 120.3 kg WEIGHT 2020-08-15 08:56:00 120.3 kg WEIGHT 2020-08-14 07:19:17 118.6 kg HEIGHT 2020-07-30 12:52:00 168 cm WEIGHT 2020-08-14 07:19:17 118.6 kg HEIGHT 2020-07-30 12:52:00 168 cm WEIGHT 2020-07-20 11:48:00 123.4 kg WEIGHT 2020-07-20 11:48:00 123.4 kg WEIGHT 2020-07-19 08:16:00 122.8 kg WEIGHT 2020-07-19 08:16:00 122.8 kg WEIGHT 2020-07-18 19:29:16 123.5 kg WEIGHT 2020-07-18 19:29:16 123.5 kg WEIGHT 2020-07-18 07:36:37 121.3 kg WEIGHT 2020-07-18 07:36:37 121.3 kg WEIGHT 2020-07-17 19:59:54 121.5 kg WEIGHT 2020-07-17 19:59:54 121.5 kg WEIGHT 2020-07-16 12:18:53 123.9 kg WEIGHT 2020-07-16 12:18:53 123.9 kg WEIGHT 2020-07-15 10:42:28 121.6 kg WEIGHT 2020-07-15 10:42:28 121.6 kg WEIGHT 2020-07-14 13:25:13 120.3 kg WEIGHT 2020-07-14 13:25:13 120.3 kg WEIGHT 2020-01-30 07:52:00 125.2 kg WEIGHT 2020-01-30 07:52:00 125.2 kg Systolic blood 2020-08-27 17:09:47 158 mm[Hg] pressure Diastolic blood 2020-08-27 17:09:47 106 mm[Hg] MD Carmencita coker pressure Heart rate 2020-08-27 17:09:47 93 /min Karan coleman Body temperature 2020-08-27 17:08:50 37.39 Tila MD Shilpa pina Respiratory rate 2020-08-27 17:08:50 18 /min MD Shilpa pina Oxygen saturation in 2020-08-27 17:08:50 98 /min MD Pantoja Arterial blood by Pulse oximetry Body weight 2020-08-27 17:06:00 121.5 kg Karan son BMI 2020-08-27 17:06:00 43.05 kg/m2 Karan coleman Body height 2020-07-30 17:52:00 168 cm Karan son Systolic blood 2020-06-07 13:16:00 137 mm[Hg] [facility] pressure Diastolic blood 2020-06-07 13:16:00 87 mm[Hg] [facility] pressure Heart rate 2020-06-07 13:16:00 103 /min [facility] Body temperature 2020-06-07 13:16:00 36.56 Tila [facility] Body height 2020-06-07 13:16:00 170.2 cm [facility] Oxygen saturation in 2020-06-07 13:16:00 98 /min [place] [facility] Arterial blood by Pulse oximetry Body weight 2020-05-17 09:07:00 125.193 kg [facility] BMI 2020-05-17 09:07:00 43.23 kg/m2 [facility] Respiratory rate 2020-03-15 12:00:00 18 /min [place] [facility] Procedures Procedure Date / Time Performing Clinician Source Performed COMPLETE BLOOD COUNT W/ 2020-08-27 16:14:00 Efrem Peralta MD DIFFERENTIAL TYPE AND SCREEN 2020-08-27 16:14:00 Efrem Peralta MD COMPREHENSIVE METABOLIC 2020-08-27 16:14:00 Efrem Peralta MD PANEL PHOSPHORUS LEVEL 2020-08-27 16:14:00 Efrem Peralta MD URIC ACID 2020-08-27 16:14:00 Efrem Peralta MD LACTATE DEHYDROGENASE 2020-08-27 16:14:00 Efrem Peralta MD derson MAGNESIUM LEVEL 2020-08-27 16:14:00 Efrem Peralta MD RESEARCH PROTOCOL [id number] 2020-08-27 16:14:00 Tanisha Sy MD Results CBC 2020-08-27 16:14:00 Efrem Peralta MD MANUAL DIFFERENTIAL 2020-08-27 16:14:00 Efrem Peralta MD Nahid rson GLUCOSE LEVEL 2020-08-27 16:14:00 Efrem Peralta MD BLOOD UREA NITROGEN 2020-08-27 16:14:00 Efrem Peralta MD Nahid rson ELECTROLYTE PANEL 2020-08-27 16:14:00 Efrem Peralta MD on SERUM CREATININE 2020-08-27 16:14:00 Efrem Peralta MD .GLOMERULAR FILTRATION RATE 2020-08-27 16:14:00 Efrem Peralta MD CALCIUM LEVEL TOTAL 2020-08-27 16:14:00 Efrem Peralta MD Nahid rson ALBUMIN LEVEL 2020-08-27 16:14:00 Efrem Peralta MD ALKALINE PHOSPHATASE 2020-08-27 16:14:00 Efrem Peralta ALANINE AMINOTRANSFERASE 2020-08-27 16:14:00 Efrem Peralta MD ASPARTATE AMINOTRANSFERASE 2020-08-27 16:14:00 Efrem Peralta MD TOTAL PROTEIN 2020-08-27 16:14:00 Efrem Peralta MD FRACTIONATED BILIRUBIN 2020-08-27 16:14:00 Efrem Peralta MD nderson ABORH 2020-08-27 16:14:00 Efrem Peralta MD ANTIBODY SCREEN 2020-08-27 16:14:00 Efrem Peralta MD CLOT EXPIRATION DATE 2020-08-27 16:14:00 Efrem Peralta MD And erson TMP INTERPRETATION ANTIBODY 2020-08-27 16:14:00 Efrem Peralta MD SCREEN NEGATIVE IMMUNOGLOBULIN A SERUM 2020-08-24 14:33:00 Efrem Peralta MD nderson IMMUNOGLOBULIN G SERUM 2020-08-24 14:33:00 Efrem Peralta MD nderson FREE KAPPA LIGHT CHAIN 2020-08-24 14:33:00 Efrem Peralta MD nderson PROTEIN ELECTROPHORESIS, 2020-08-24 14:33:00 Efrem Peralta MD SERUM IMMUNOFIXATION 2020-08-24 14:33:00 Efrem Peralta MD ELECTROPHORESIS BETA 2 MICROGLOBULIN 2020-08-24 14:33:00 Efrem Peralta MD And erschano LACTATE DEHYDROGENASE 2020-08-24 14:33:00 Efrem Peralta MD COMPLETE BLOOD COUNT W/ 2020-08-24 14:33:00 Efrem Peralta MD DIFFERENTIAL TYPE AND SCREEN 2020-08-24 14:33:00 Efrem Peralta MD COMPREHENSIVE METABOLIC 2020-08-24 14:33:00 Efrem Peralta MD PANEL PHOSPHORUS LEVEL 2020-08-24 14:33:00 Efrem Peralta MD n URIC ACID 2020-08-24 14:33:00 Efrem Peralta MD MAGNESIUM LEVEL 2020-08-24 14:33:00 Efrem Peralta MD Results CBC 2020-08-24 14:33:00 Efrem Peralta MD MANUAL DIFFERENTIAL 2020-08-24 14:33:00 Efrem Peralta MD GLUCOSE LEVEL 2020-08-24 14:33:00 Efrem Peralta MD BLOOD UREA NITROGEN 2020-08-24 14:33:00 Efrem Peralta MD ELECTROLYTE PANEL 2020-08-24 14:33:00 Efrem Peralta MD on SERUM CREATININE 2020-08-24 14:33:00 Efrem Peralta MDGLOMERULAR FILTRATION RATE 2020-08-24 14:33:00 Efrem Peralta MD CALCIUM LEVEL TOTAL 2020-08-24 14:33:00 Efrem Peralta MD ALBUMIN LEVEL 2020-08-24 14:33:00 Efrem Peralta MD ALKALINE PHOSPHATASE 2020-08-24 14:33:00 Efrem Peralta MD And erschano ALANINE AMINOTRANSFERASE 2020-08-24 14:33:00 Efrem Peralta MD ASPARTATE AMINOTRANSFERASE 2020-08-24 14:33:00 Efrem Peralta MD TOTAL PROTEIN 2020-08-24 14:33:00 Efrem Peralta MD FRACTIONATED BILIRUBIN 2020-08-24 14:33:00 Efrem Peralta MD nderson ABORH 2020-08-24 14:33:00 Efrem Peralta MD ANTIBODY SCREEN 2020-08-24 14:33:00 Efrem Peralta MD FREE KAPPA/FREE LAMBDA 2020-08-24 14:33:00 Efrem Peralta MD nderson RATIO CLOT EXPIRATION DATE 2020-08-24 14:33:00 Efrem Peralta MD And erson PROTEIN ELECTROPHORESIS 2020-08-24 14:00:00 Efrem Peralta MD URINE IMMUNOFIXATION 2020-08-24 14:00:00 Efrem Peralta MD ELECTROPHORESIS URINE URINE TOTAL PROTEIN 2020-08-24 14:00:00 Efrem Peralta MD .TOTAL VOLUME 2020-08-24 14:00:00 Efrem Peralta MD TRANSFUSE RED BLOOD CELLS 2020-08-21 23:55:52 Efrem Peralta PREPARE RBC 2020-08-21 16:02:00 Efrem Peralta MD PRBC PRODUCT READY FOR PICK 2020-08-21 16:02:00 ProviderSasha MD UP COMPLETE BLOOD COUNT W/ 2020-08-21 14:35:00 Efrem Peralta MD DIFFERENTIAL TYPE AND SCREEN 2020-08-21 14:35:00 Efrem Peralta MD COMPREHENSIVE METABOLIC 2020-08-21 14:35:00 Efrem Peralta MD PANEL PHOSPHORUS LEVEL 2020-08-21 14:35:00 Efrem Peralta MD URIC ACID 2020-08-21 14:35:00 Efrem Peralta MD LACTATE DEHYDROGENASE 2020-08-21 14:35:00 Efrem Peralta MD derson MAGNESIUM LEVEL 2020-08-21 14:35:00 Efrem Peralta MD Results CBC 2020-08-21 14:35:00 Efrem Peralta MD MANUAL DIFFERENTIAL 2020-08-21 14:35:00 Efrem Peralta MD Nahid rson GLUCOSE LEVEL 2020-08-21 14:35:00 Efrem Peralta MD BLOOD UREA NITROGEN 2020-08-21 14:35:00 Efrem Peralta MD Nahid rson ELECTROLYTE PANEL 2020-08-21 14:35:00 Efrem Peralta MD on SERUM CREATININE 2020-08-21 14:35:00 Efrem Peralta MD .GLOMERULAR FILTRATION RATE 2020-08-21 14:35:00 Efrem Peralta MD CALCIUM LEVEL TOTAL 2020-08-21 14:35:00 Efrem Peralta MD Nahid rson ALBUMIN LEVEL 2020-08-21 14:35:00 Efrem Peralta MD ALKALINE PHOSPHATASE 2020-08-21 14:35:00 Efrem Peralta MD And erschano ALANINE AMINOTRANSFERASE 2020-08-21 14:35:00 Efrem Peralta MD ASPARTATE AMINOTRANSFERASE 2020-08-21 14:35:00 Efrem Peralta MD TOTAL PROTEIN 2020-08-21 14:35:00 Efrem Peralta MD FRACTIONATED BILIRUBIN 2020-08-21 14:35:00 Efrem Peralta MD nderson ABORH 2020-08-21 14:35:00 Efrem Peralta MD ANTIBODY SCREEN 2020-08-21 14:35:00 Efrem Peralta MD CLOT EXPIRATION DATE 2020-08-21 14:35:00 Efrem Peralta MD And erson TMP CROSSMATCH 2020-08-21 14:35:00 Efrem Peralta MD INTERPRETATION COMPLETE BLOOD COUNT W/ 2020-08-17 16:31:00 Efrem Peralta MD DIFFERENTIAL TYPE AND SCREEN 2020-08-17 16:31:00 Efrem Peralta MD COMPREHENSIVE METABOLIC 2020-08-17 16:31:00 Efrem Peralta MD PANEL PHOSPHORUS LEVEL 2020-08-17 16:31:00 Efrem Peralta MD URIC ACID 2020-08-17 16:31:00 Efrem Peralta MD LACTATE DEHYDROGENASE 2020-08-17 16:31:00 Kathryn, Efrem dcson MAGNESIUM LEVEL 2020-08-17 16:31:00 Efrem Peralta MD Results CBC 2020-08-17 16:31:00 Efrem Peralta MD MANUAL DIFFERENTIAL 2020-08-17 16:31:00 Efrem Peralta MD GLUCOSE LEVEL 2020-08-17 16:31:00 Efrem Peralta MD BLOOD UREA NITROGEN 2020-08-17 16:31:00 Efrem Peralta MD ELECTROLYTE PANEL 2020-08-17 16:31:00 Efrem Peralta MD on SERUM CREATININE 2020-08-17 16:31:00 Kathryn, Efrem jha .GLOMERULAR FILTRATION RATE 2020-08-17 16:31:00 Efrem Peralta MD CALCIUM LEVEL TOTAL 2020-08-17 16:31:00 Efrem Peralta MD ALBUMIN LEVEL 2020-08-17 16:31:00 Efrem Peralta MD ALKALINE PHOSPHATASE 2020-08-17 16:31:00 Efrem Peralta ALANINE AMINOTRANSFERASE 2020-08-17 16:31:00 Efrem Peralta MD ASPARTATE AMINOTRANSFERASE 2020-08-17 16:31:00 Efrem Peralta MD TOTAL PROTEIN 2020-08-17 16:31:00 Efrem Peralta MD FRACTIONATED BILIRUBIN 2020-08-17 16:31:00 Efrem Peralta MD nderson ABORH 2020-08-17 16:31:00 Efrem Peralta MD ANTIBODY SCREEN 2020-08-17 16:31:00 Efrem Peralta MD CLOT EXPIRATION DATE 2020-08-17 16:31:00 Efrem Peralta MD And erson TMP INTERPRETATION ANTIBODY 2020-08-17 16:31:00 Efrem Peralta MD SCREEN NEGATIVE ALKALINE PHOSPHATASE 2020-08-15 13:08:00 Anand Goldman MD ALANINE AMINOTRANSFERASE 2020-08-15 13:08:00 Anand Goldman MD ASPARTATE AMINOTRANSFERASE 2020-08-15 13:08:00 Neda Goldman MD TOTAL PROTEIN 2020-08-15 13:08:00 Anand Goldman MD Nahid rson FRACTIONATED BILIRUBIN 2020-08-15 13:08:00 Anand Goldman MD ABORH 2020-08-15 13:08:00 Anand Goldman MD Nahid rson ANTIBODY SCREEN 2020-08-15 13:08:00 Anand Goldman MD Nahid rson CLOT EXPIRATION DATE 2020-08-15 13:08:00 Anand Goldman MD TMP INTERPRETATION ANTIBODY 2020-08-15 13:08:00 Peyton Goldman MD SCREEN NEGATIVE COMPLETE BLOOD COUNT W/ 2020-08-15 13:08:00 Anand Goldman MD DIFFERENTIAL TYPE AND SCREEN 2020-08-15 13:08:00 Anand Goldman MD Nahid rson COMPREHENSIVE METABOLIC 2020-08-15 13:08:00 Anand Goldman MD PANEL PHOSPHORUS LEVEL 2020-08-15 13:08:00 Anand Goldman MD And erson URIC ACID 2020-08-15 13:08:00 Anand Goldman MD Nahid rson LACTATE DEHYDROGENASE 2020-08-15 13:08:00 Anand Goldman MAGNESIUM LEVEL 2020-08-15 13:08:00 Anand Goldman MD Nahid rson Results CBC 2020-08-15 13:08:00 Anand Goldman MD Nahid rson MANUAL DIFFERENTIAL 2020-08-15 13:08:00 Anand Goldman MD GLUCOSE LEVEL 2020-08-15 13:08:00 Anand Goldman MD Nahid rson BLOOD UREA NITROGEN 2020-08-15 13:08:00 Anand Goldman MD ELECTROLYTE PANEL 2020-08-15 13:08:00 Anand Goldman MD derson SERUM CREATININE 2020-08-15 13:08:00 Anand Goldman MD And erson .GLOMERULAR FILTRATION RATE 2020-08-15 13:08:00 Peyton Goldman MD CALCIUM LEVEL TOTAL 2020-08-15 13:08:00 Anand Goldman MD ALBUMIN LEVEL 2020-08-15 13:08:00 Anand Goldman MD Nahid rson POC GLUCOSE SCREEN 2020-08-14 18:20:00 Juan Carlos Mo MDson POC GLUCOSE SCREEN 2020-08-14 12:22:00 Juan Carlos Mo MDson COMPLETE BLOOD COUNT W/ 2020-08-14 05:44:00 Rayray Arias MD nderson DIFFERENTIAL BASIC METABOLIC PANEL, 2020-08-14 05:44:00 Rayray Arias MD CALCIUM TOTAL BILIRUBIN TOTAL 2020-08-14 05:44:00 Rayray Arias MD GLUCOSE LEVEL 2020-08-14 05:44:00 Rayray Arias MD BLOOD UREA NITROGEN 2020-08-14 05:44:00 Rayray Arias MD Karan son ELECTROLYTE PANEL 2020-08-14 05:44:00 Rayray Arias MD n SERUM CREATININE 2020-08-14 05:44:00 Rayray Arias MD .GLOMERULAR FILTRATION RATE 2020-08-14 05:44:00 Rayray Arias MD CALCIUM LEVEL TOTAL 2020-08-14 05:44:00 Rayray Arias MD Karan son Results CBC 2020-08-14 05:44:00 Rayray Arias MD MANUAL DIFFERENTIAL 2020-08-14 05:44:00 [facility] S[facility] 2020-08-14 04:33:00 Juan Carlos Mo MD An derson POC GLUCOSE SCREEN 2020-08-14 01:41:00 Juan Carlos Mo MD An derson POC GLUCOSE SCREEN 2020-08-13 12:19:00 Juan Carlos Mo MD An derson COMPLETE BLOOD COUNT W/ 2020-08-13 05:28:00 Rayray Arias MD A nderson DIFFERENTIAL COMPREHENSIVE METABOLIC 2020-08-13 05:28:00 Rayray Arias MD nderson PANEL LACTATE DEHYDROGENASE 2020-08-13 05:28:00 Rayray Arias MD And ers PHOSPHORUS LEVEL 2020-08-13 05:28:00 Rayray Arias MD MAGNESIUM LEVEL 2020-08-13 05:28:00 Rayray Arias MD URIC ACID 2020-08-13 05:28:00 Rayray Arias MD Results CBC 2020-08-13 05:28:00 Rayray Arias MD MANUAL DIFFERENTIAL 2020-08-13 05:28:00 [facility] GLUCOSE LEVEL 2020-08-13 05:28:00 Rayray Arias MD BLOOD UREA NITROGEN 2020-08-13 05:28:00 [facility] ELECTROLYTE PANEL 2020-08-13 05:28:00 [facility] 2020-08-13 05:28:00 Rayray Arias MD .GLOMERULAR FILTRATION RATE 2020-08-13 05:28:00 Rayray Arias MD CALCIUM LEVEL TOTAL 2020-08-13 05:28:00 [facility] ALBUMIN LEVEL 2020-08-13 05:28:00 Rayray Arias MD ALKALINE PHOSPHATASE 2020-08-13 05:28:00 Rayray Arias MD Nahid rson ALANINE AMINOTRANSFERASE 2020-08-13 05:28:00 Rayray Arias MD ASPARTATE AMINOTRANSFERASE 2020-08-13 05:28:00 Rayray Arias TOTAL PROTEIN 2020-08-13 05:28:00 Rayray Arias MD FRACTIONATED BILIRUBIN 2020-08-13 05:28:00 Rayray Arias MD POC GLUCOSE SCREEN 2020-08-13 05:08:00 Juan Carlos Mo MD derson HEMODIALYSIS 2020-08-13 05:05:08 Akanksha Campbell MD POC CRITICAL 2020-08-13 02:36:00 Juan Carlos [facility] POC GLUCOSE SCREEN 2020-08-13 02:36:00 Juan Carlos Mo MD POC GLUCOSE SCREEN 2020-08-13 00:58:00 Juan Carlos Mo MD TRANSFUSE RED BLOOD CELLS 2020-08-12 19:43:14 Bertha Mo MD COVID-19 (SARS-COV-2) 2020-08-12 17:58:00 Juan Carlos Mo MD PCR-ASYMPTOMATIC MC POC GLUCOSE SCREEN 2020-08-12 17:43:00 Juan Carlos Mo MDson POC GLUCOSE SCREEN 2020-08-12 12:44:00 Juan Carlos Mo MD PREPARE RBC 2020-08-12 11:24:00 Juan Carlos Mo MD [facility] PRBC PRODUCT READY FOR PICK 2020-08-12 11:24:00 Sammi Mo MD UP TYPE AND SCREEN 2020-08-12 09:48:00 Rayray Arias MD COMPLETE BLOOD COUNT W/ 2020-08-12 09:48:00 Rayray Arias MD nderson DIFFERENTIAL BASIC METABOLIC PANEL, 2020-08-12 09:48:00 Rayray Arias MD CALCIUM TOTAL BILIRUBIN TOTAL 2020-08-12 09:48:00 Rayray Arias MD ABORH 2020-08-12 09:48:00 Rayray Arias MD ANTIBODY SCREEN 2020-08-12 09:48:00 Rayray Arias MD GLUCOSE LEVEL 2020-08-12 09:48:00 Rayray Arias MD BLOOD UREA NITROGEN 2020-08-12 09:48:00 Rayray Arias MD ELECTROLYTE PANEL 2020-08-12 09:48:00 Rayray Arias MDo n SERUM CREATININE 2020-08-12 09:48:00 Rayray Arias MD .GLOMERULAR FILTRATION RATE 2020-08-12 09:48:00 Rayray Arias MD CALCIUM LEVEL TOTAL 2020-08-12 09:48:00 Rayray Arias MD Karanmaya cee Results CBC 2020-08-12 09:48:00 Rayray Arias MD MANUAL DIFFERENTIAL 2020-08-12 09:48:00 Rayray Arias MD Karanmaya cee CLOT EXPIRATION DATE 2020-08-12 09:48:00 Rayray Arias MD Nahid rson TMP INTERPRETATION ANTIBODY 2020-08-12 09:48:00 Rayray Arias MD SCREEN NEGATIVE TMP CROSSMATCH 2020-08-12 09:48:00 Rayray Arias MD INTERPRETATION POC GLUCOSE SCREEN 2020-08-12 04:09:00 Juan Carlos Mo MD derson POC GLUCOSE SCREEN 2020-08-12 01:34:00 Juan Carlos oM MD An daoson URINE CULTURE 2020-08-11 19:20:00 Rayray Arias MD URINALYSIS WITH MICROSCOPIC 2020-08-11 19:20:00 Rayray Arias MD IF INDICATED URINALYSIS MICROSCOPIC 2020-08-11 19:20:00 Rayray Arias MDson POC GLUCOSE SCREEN 2020-08-11 18:16:00 Juan Carlos Mo MD An daoson POC GLUCOSE SCREEN 2020-08-11 14:57:00 Juan Carlos Mo MD An daoson COMPLETE BLOOD COUNT W/ 2020-08-11 09:03:00 Rayray Arias MD nderson DIFFERENTIAL BASIC METABOLIC PANEL, 2020-08-11 09:03:00 Rayray Arias MD CALCIUM TOTAL BILIRUBIN TOTAL 2020-08-11 09:03:00 Rayray Arias MD GLUCOSE LEVEL 2020-08-11 09:03:00 Rayray Arias MD BLOOD UREA NITROGEN 2020-08-11 09:03:00 Rayray Arias MD Karanmaya cee ELECTROLYTE PANEL 2020-08-11 09:03:00 Rayray Arias MD Andchacortao n SERUM CREATININE 2020-08-11 09:03:00 Rayray Arias MD .GLOMERULAR FILTRATION RATE 2020-08-11 09:03:00 Rayray Arias MD CALCIUM LEVEL TOTAL 2020-08-11 09:03:00 [facility] Results CBC 2020-08-11 09:03:00 Rayray Arias MD DIFFERENTIAL CANCEL 2020-08-11 09:03:00 [facility] POC GLUCOSE SCREEN 2020-08-11 04:32:00 Juan Carlos Mo MD POC GLUCOSE SCREEN 2020-08-11 02:24:00 Juan Carlos Mo MD derson HEMODIALYSIS 2020-08-11 01:48:26 Keyur Ambrosio MD BLOODCULTURE 2020-08-10 20:05:00 Rayray Arias MD XR CHEST 2 VW 2020-08-10 19:46:36 Rayray Arias MD BLOODCULTURE 2020-08-10 18:26:00 Rayray Arias MD POC GLUCOSE SCREEN 2020-08-10 18:08:00 Juan Carlos Mo MD POC GLUCOSE SCREEN 2020-08-10 13:51:00 Juan Carlos Mo MD COMPREHENSIVE METABOLIC 2020-08-10 06:18:00 Rayray Arias MD nderson PANEL LACTATE DEHYDROGENASE 2020-08-10 06:18:00 Rayray Arias MD And erson PHOSPHORUS LEVEL 2020-08-10 06:18:00 Rayray Arias MD MAGNESIUM LEVEL 2020-08-10 06:18:00 Rayray Arias MD URIC ACID 2020-08-10 06:18:00 Rayray Arias MD Results CBC 2020-08-10 06:18:00 Rayray Arias MD GLUCOSE LEVEL 2020-08-10 06:18:00 Rayray Arias MD BLOOD UREA NITROGEN 2020-08-10 06:18:00 Rayray Arias MD Karanmaya cee ELECTROLYTE PANEL 2020-08-10 06:18:00 Rayray Arias MD yudelka SERUM CREATININE 2020-08-10 06:18:00 Rayray Arias MD .GLOMERULAR FILTRATION RATE 2020-08-10 06:18:00 Rayray Arias MD CALCIUM LEVEL TOTAL 2020-08-10 06:18:00 Rayray Arias MD Karanmaya cee ALBUMIN LEVEL 2020-08-10 06:18:00 Rayray Arias MD ALKALINE PHOSPHATASE 2020-08-10 06:18:00 Rayray Arias MD rson ALANINE AMINOTRANSFERASE 2020-08-10 06:18:00 Rayray Arias MD ASPARTATE AMINOTRANSFERASE 2020-08-10 06:18:00 Rayray Arias TOTAL PROTEIN 2020-08-10 06:18:00 Rayray Arias MD FRACTIONATED BILIRUBIN 2020-08-10 06:18:00 Rayray Arias MDson DIFFERENTIAL CANCEL 2020-08-10 06:18:00 [facility] COMPLETE BLOOD COUNT W/ 2020-08-10 06:18:00 Rayray Arias MD nderson DIFFERENTIAL POC GLUCOSE SCREEN 2020-08-10 04:20:00 Juan Carlos Mo MDson POC GLUCOSE SCREEN 2020-08-10 00:58:00 Juan Carlos Mo MD An daoson POC GLUCOSE SCREEN 2020-08-09 19:19:00 Juan Carlos Mo MD An daoson POC GLUCOSE SCREEN 2020-08-09 13:27:00 Juan Carlos Mo MD An daoson TYPE AND SCREEN 2020-08-09 06:21:00 Rayray Arias MD COMPLETE BLOOD COUNT W/ 2020-08-09 06:21:00 Rayray Arias MD nderson DIFFERENTIAL BASIC METABOLIC PANEL, 2020-08-09 06:21:00 Rayray Arias MDson CALCIUM TOTAL BILIRUBIN TOTAL 2020-08-09 06:21:00 Rayray Arias MD ABORH 2020-08-09 06:21:00 Rayray Arias MD ANTIBODY SCREEN 2020-08-09 06:21:00 Rayray Arias MD GLUCOSE LEVEL 2020-08-09 06:21:00 Rayray Arias MD BLOOD UREA NITROGEN 2020-08-09 06:21:00 Rayray Arias MD Karan son ELECTROLYTE PANEL 2020-08-09 06:21:00 Rayray Arias MD n SERUM CREATININE 2020-08-09 06:21:00 Rayray Arias MD .GLOMERULAR FILTRATION RATE 2020-08-09 06:21:00 Rayray Arias MD CALCIUM LEVEL TOTAL 2020-08-09 06:21:00 Rayray Arias MD Karan son Results CBC 2020-08-09 06:21:00 Rayray Arias MD DIFFERENTIAL CANCEL 2020-08-09 06:21:00 Rayray Arias MD Karan son CLOT EXPIRATION DATE 2020-08-09 06:21:00 Rayray Arias MD Nahid rson TMP INTERPRETATION ANTIBODY 2020-08-09 06:21:00 Rayray Arias MD SCREEN NEGATIVE POC GLUCOSE SCREEN 2020-08-09 04:14:00 Juan Carlos Mo MD BKV QUANT, URINE 2020-08-09 02:23:00 Antonella Hurd MD URINALYSIS WITH MICROSCOPIC 2020-08-09 02:23:00 Antonella Hurd MD IF INDICATED URINALYSIS MICROSCOPIC 2020-08-09 02:23:00 Antonella Hurd MD POC GLUCOSE SCREEN 2020-08-09 01:47:00 Juan Carlos Mo MD POC GLUCOSE SCREEN 2020-08-08 18:45:00 Juan Carlos Mo MD POC GLUCOSE SCREEN 2020-08-08 13:32:00 Juan Carlos Mo MD COMPLETE BLOOD COUNT W/ 2020-08-08 07:15:00 Rayray Arias MD nderson DIFFERENTIAL COMPREHENSIVE METABOLIC 2020-08-08 07:15:00 Rayray Arias MD nderson PANEL LACTATE DEHYDROGENASE 2020-08-08 07:15:00 Rayray Arias MD And erson PHOSPHORUS LEVEL 2020-08-08 07:15:00 Rayray Arias MD MAGNESIUM LEVEL 2020-08-08 07:15:00 Rayray Arias MD URIC ACID 2020-08-08 07:15:00 Rayray Arias MD PROTHROMBIN TIME 2020-08-08 07:15:00 Rayray Arias MD PARTIAL THROMBOPLASTIN TIME 2020-08-08 07:15:00 Rayray Arias MD Results CBC 2020-08-08 07:15:00 Rayray Arias MD GLUCOSE LEVEL 2020-08-08 07:15:00 Rayray Arias MD BLOOD UREA NITROGEN 2020-08-08 07:15:00 Rayray Arias MD Karan son ELECTROLYTE PANEL 2020-08-08 07:15:00 Rayray Arias MD Andchacortao n SERUM CREATININE 2020-08-08 07:15:00 Rayray Arias MD .GLOMERULAR FILTRATION RATE 2020-08-08 07:15:00 Rayray Arias MD CALCIUM LEVEL TOTAL 2020-08-08 07:15:00 Rayray Arias MD Karan son ALBUMIN LEVEL 2020-08-08 07:15:00 Rayray Arias MD ALKALINE PHOSPHATASE 2020-08-08 07:15:00 Rayray Arias MD rson ALANINE AMINOTRANSFERASE 2020-08-08 07:15:00 Rayray Arias MD ASPARTATE AMINOTRANSFERASE 2020-08-08 07:15:00 Rayray Arias TOTAL PROTEIN 2020-08-08 07:15:00 Rayray Arias MD FRACTIONATED BILIRUBIN 2020-08-08 07:15:00 Rayray Arias MD An derson DIFFERENTIAL CANCEL 2020-08-08 07:15:00 Rayray Arias MD Karanmaya cee POC GLUCOSE SCREEN 2020-08-08 03:41:00 Juan Carlos Mo MD An derson POC GLUCOSE SCREEN 2020-08-07 23:18:00 Juan Carlos Mo MD An derson POC GLUCOSE SCREEN 2020-08-07 19:14:00 Juan Carlos Mo MD An daoson VRE CULTURE 2020-08-07 16:12:00 Rayray Arias MD POC GLUCOSE SCREEN 2020-08-07 12:41:00 Juan Carlos Mo MD An daoson COMPLETE BLOOD COUNT W/ 2020-08-07 05:49:00 Rayray Arias MD nderson DIFFERENTIAL BASIC METABOLIC PANEL, 2020-08-07 05:49:00 Rayray Arias MD CALCIUM TOTAL BILIRUBIN TOTAL 2020-08-07 05:49:00 Rayray Arias MD GLUCOSE LEVEL 2020-08-07 05:49:00 Rayray Arias MD BLOOD UREA NITROGEN 2020-08-07 05:49:00 Rayray Arias MD ELECTROLYTE PANEL 2020-08-07 05:49:00 Rayray Arias MD SERUM CREATININE 2020-08-07 05:49:00 Rayray Arias MD .GLOMERULAR FILTRATION RATE 2020-08-07 05:49:00 Rayray Arias MD CALCIUM LEVEL TOTAL 2020-08-07 05:49:00 aRyray Arias MD Karanmaya cee Results CBC 2020-08-07 05:49:00 Rayray Arias MD MANUAL DIFFERENTIAL 2020-08-07 05:49:00 Rayray Arias MD Karanmaya cee XR ABDOMEN 1 VW PORTABLE 2020-08-07 05:48:55 Irma Glez MD POC GLUCOSE SCREEN 2020-08-07 03:38:00 Juan Carlos Mo MDson POC GLUCOSE SCREEN 2020-08-07 00:19:00 Juan Carlos Mo MD An daoson POC GLUCOSE SCREEN 2020-08-06 19:29:00 Juan Carlos Mo MD An derson POC GLUCOSE SCREEN 2020-08-06 15:17:00 Juan Carlos Mo MD derson HEMODIALYSIS 2020-08-06 14:48:16 Keyur Ambrosio MD TYPE AND SCREEN 2020-08-06 06:07:00 Rayray Arias MD COMPLETE BLOOD COUNT W/ 2020-08-06 06:07:00 Rayray Arias MD nderson DIFFERENTIAL COMPREHENSIVE METABOLIC 2020-08-06 06:07:00 Rayray Arias MD nderson PANEL LACTATE DEHYDROGENASE 2020-08-06 06:07:00 Rayray Arias MD And erson PHOSPHORUS LEVEL 2020-08-06 06:07:00 Rayray Arias MD MAGNESIUM LEVEL 2020-08-06 06:07:00 Rayray Arias MD URIC ACID 2020-08-06 06:07:00 Rayray Arias MD VITAMIN D 25 HYDROXY LEVEL 2020-08-06 06:07:00 Zach Hunt PTH INTACT 2020-08-06 06:07:00 Zach Hunt MD ABORH 2020-08-06 06:07:00 Rayray Arias MD ANTIBODY SCREEN 2020-08-06 06:07:00 Rayray Arias MD Results CBC 2020-08-06 06:07:00 Rayray Arias MD MANUAL DIFFERENTIAL 2020-08-06 06:07:00 Rayray Arias MD Karan [facility] GLUCOSE LEVEL 2020-08-06 06:07:00 Rayray Arias MD BLOOD UREA NITROGEN 2020-08-06 06:07:00 Rayray Arias MD Karan [facility] ELECTROLYTE PANEL 2020-08-06 06:07:00 Rayray Arias MD SERUM CREATININE 2020-08-06 06:07:00 Rayray Arias MD .GLOMERULAR FILTRATION RATE 2020-08-06 06:07:00 Rayray Arias MD CALCIUM LEVEL TOTAL 2020-08-06 06:07:00 Rayray Arias MD Karan son ALBUMIN LEVEL 2020-08-06 06:07:00 Rayray Arias MD ALKALINE PHOSPHATASE 2020-08-06 06:07:00 Rayrya Arias MD Nahid rson ALANINE AMINOTRANSFERASE 2020-08-06 06:07:00 Rayray Arias MD ASPARTATE AMINOTRANSFERASE 2020-08-06 06:07:00 Rayray Arias TOTAL PROTEIN 2020-08-06 06:07:00 Rayray Arias MD FRACTIONATED BILIRUBIN 2020-08-06 06:07:00 Rayray Arias MD derson CLOT EXPIRATION DATE 2020-08-06 06:07:00 Rayray Arias MD rschano TMP INTERPRETATION ANTIBODY 2020-08-06 06:07:00 Rayray Arias MD SCREEN NEGATIVE POC GLUCOSE SCREEN 2020-08-06 03:05:00 Rayray Arias MD on POC GLUCOSE SCREEN 2020-08-06 00:50:00 Rayray Arias MD on POC GLUCOSE SCREEN 2020-08-05 19:28:00 Rayray Arias MD Toi on COVID-19 (SARS-COV-2) 2020-08-05 18:28:00 Rayray Arias MD And chacortaon PCR-ASYMPTOMATIC MC POC GLUCOSE SCREEN 2020-08-05 13:26:00 Rayray Arias MD on COMPLETE BLOOD COUNT W/ 2020-08-05 09:12:00 Rayray Arias MDrson DIFFERENTIAL BASIC METABOLIC PANEL, 2020-08-05 09:12:00 Rayray Arias MD CALCIUM TOTAL BILIRUBIN TOTAL 2020-08-05 09:12:00 Rayray Arias MD GLUCOSE LEVEL 2020-08-05 09:12:00 Rayray Arias MD BLOOD UREA NITROGEN 2020-08-05 09:12:00 Rayray Arias MD Karan son ELECTROLYTE PANEL 2020-08-05 09:12:00 Rayray Arias MD Andchacortao n SERUM CREATININE 2020-08-05 09:12:00 Rayray Arias MD .GLOMERULAR FILTRATION RATE 2020-08-05 09:12:00 Rayray Arias MD CALCIUM LEVEL TOTAL 2020-08-05 09:12:00 Rayray Arias MD Karan son Results CBC 2020-08-05 09:12:00 Rayray Arias MD MANUAL DIFFERENTIAL 2020-08-05 09:12:00 Rayray Arias MD Karan son POC GLUCOSE SCREEN 2020-08-05 05:01:00 Rayray Arias MD Toi on POC GLUCOSE SCREEN 2020-08-05 03:10:00 Rayray Arias MD Toi on POC GLUCOSE SCREEN 2020-08-05 01:19:00 Rayray Arias MD Toi on POC GLUCOSE SCREEN 2020-08-04 22:06:00 Rayray Arias MD Toi on POC GLUCOSE SCREEN 2020-08-04 17:49:00 Rayray Arias MD Toi on POC GLUCOSE SCREEN 2020-08-04 13:00:00 Rayray Arias MD on COMPLETE BLOOD COUNT W/ 2020-08-04 09:33:00 Rayray Arias MD nderson DIFFERENTIAL BASIC METABOLIC PANEL, 2020-08-04 09:33:00 Rayray Arias MD derson CALCIUM TOTAL BILIRUBIN TOTAL 2020-08-04 09:33:00 Rayray Arias MD GLUCOSE LEVEL 2020-08-04 09:33:00 Rayray Arias MD BLOOD UREA NITROGEN 2020-08-04 09:33:00 Rayray Arias MD Karan son ELECTROLYTE PANEL 2020-08-04 09:33:00 Rayray Arias MD n SERUM CREATININE 2020-08-04 09:33:00 Rayray Arias MD .GLOMERULAR FILTRATION RATE 2020-08-04 09:33:00 Rayray Arias MD CALCIUM LEVEL TOTAL 2020-08-04 09:33:00 Rayray Arias MD Karan son Results CBC 2020-08-04 09:33:00 Rayray Arias MD MANUAL DIFFERENTIAL 2020-08-04 09:33:00 Rayray Arias MD Karan son POC GLUCOSE SCREEN 2020-08-04 03:09:00 Rayray Arias MD on POC GLUCOSE SCREEN 2020-08-04 01:12:00 Rayray Arias MD on POC GLUCOSE SCREEN 2020-08-03 17:53:00 Rayray Arias MD on POC GLUCOSE SCREEN 2020-08-03 14:10:00 Rayray Arias MD on TYPE AND SCREEN 2020-08-03 05:49:00 Rayray Arias MD COMPLETE BLOOD COUNT W/ 2020-08-03 05:49:00 Rayray Arias MD nderson DIFFERENTIAL COMPREHENSIVE METABOLIC 2020-08-03 05:49:00 Rayray Arias MD nderson PANEL LACTATE DEHYDROGENASE 2020-08-03 05:49:00 Rayray Arias MD And erson PHOSPHORUS LEVEL 2020-08-03 05:49:00 Rayray Arias MD MAGNESIUM LEVEL 2020-08-03 05:49:00 Rayray Arias MD URIC ACID 2020-08-03 05:49:00 Rayray Arias MD ABORH 2020-08-03 05:49:00 Rayray Arias MD ANTIBODY SCREEN 2020-08-03 05:49:00 Rayray Arias MD Results CBC 2020-08-03 05:49:00 Rayray Arias MD MANUAL DIFFERENTIAL 2020-08-03 05:49:00 Rayray Arias MD Karan son GLUCOSE LEVEL 2020-08-03 05:49:00 Rayray Arias MD BLOOD UREA NITROGEN 2020-08-03 05:49:00 Rayray Arias MD Karan son ELECTROLYTE PANEL 2020-08-03 05:49:00 Rayray Arias MD Anderso n SERUM CREATININE 2020-08-03 05:49:00 Rayray Arias MD .GLOMERULAR FILTRATION RATE 2020-08-03 05:49:00 Rayray Arias MD CALCIUM LEVEL TOTAL 2020-08-03 05:49:00 Rayray Arias MD Karan son ALBUMIN LEVEL 2020-08-03 05:49:00 Rayray Arias MD ALKALINE PHOSPHATASE 2020-08-03 05:49:00 Rayray Arias MD Nahid rson ALANINE AMINOTRANSFERASE 2020-08-03 05:49:00 Rayray Arias MD ASPARTATE AMINOTRANSFERASE 2020-08-03 05:49:00 Rayray Arias TOTAL PROTEIN 2020-08-03 05:49:00 Rayray Arias MD FRACTIONATED BILIRUBIN 2020-08-03 05:49:00 Rayray Arias MD An derson CLOT EXPIRATION DATE 2020-08-03 05:49:00 Rayray Arias MD Nahid rson TMP INTERPRETATION ANTIBODY 2020-08-03 05:49:00 Rayray Arias MD SCREEN NEGATIVE POC GLUCOSE SCREEN 2020-08-03 03:38:00 Rayray Arias MD on POC GLUCOSE SCREEN 2020-08-03 01:43:00 Rayray Arias MD Toi on POC GLUCOSE SCREEN 2020-08-02 22:31:00 Rayray Arias MD on POC GLUCOSE SCREEN 2020-08-02 19:24:00 Rayray Arias MD on HEMODIALYSIS 2020-08-02 17:30:10 Keyur Ambrosio MD POC GLUCOSE SCREEN 2020-08-02 14:58:00 Rayray Arias MD on COMPLETE BLOOD COUNT W/ 2020-08-02 08:54:00 Rayray Arias MDrson DIFFERENTIAL BASIC METABOLIC PANEL, 2020-08-02 08:54:00 Rayray Arias MD CALCIUM TOTAL BILIRUBIN TOTAL 2020-08-02 08:54:00 Rayray Arias MD GLUCOSE LEVEL 2020-08-02 08:54:00 Rayray Arias MD BLOOD UREA NITROGEN 2020-08-02 08:54:00 Rayray Arias MD son ELECTROLYTE PANEL 2020-08-02 08:54:00 Rayray Arias MD n SERUM CREATININE 2020-08-02 08:54:00 Rayray Arias MD .GLOMERULAR FILTRATION RATE 2020-08-02 08:54:00 Rayray Arias MD CALCIUM LEVEL TOTAL 2020-08-02 08:54:00 Juana, Rayray MD Karan son Results CBC 2020-08-02 08:54:00 Rayray Arias MD MANUAL DIFFERENTIAL 2020-08-02 08:54:00 Rayray Arias MD Karan son POC GLUCOSE SCREEN 2020-08-02 02:38:00 Rayray Arias MD on POC GLUCOSE SCREEN 2020-08-02 00:45:00 Rayray Arias MD on POC GLUCOSE SCREEN 2020-08-01 22:24:00 Rayray Arias MD on POTASSIUM LEVEL 2020-08-01 21:40:00 Antonella Hurd MD [place] POC GLUCOSE SCREEN 2020-08-01 17:59:00 Rayray Arias MD on HEMODIALYSIS 2020-08-01 17:34:02 Keyur Ambrosio MD Kit POC GLUCOSE SCREEN 2020-08-01 15:56:00 Rayray Arias MD on PROTHROMBIN TIME 2020-08-01 11:40:00 Rayray Arias MD PARTIAL THROMBOPLASTIN TIME 2020-08-01 11:40:00 Rayray Arias MD POC GLUCOSE SCREEN 2020-08-01 11:21:00 Rayray Arias MD on COMPLETE BLOOD COUNT W/ 2020-08-01 07:08:00 Rayray Arias MD nderson DIFFERENTIAL COMPREHENSIVE METABOLIC 2020-08-01 07:08:00 Rayray Arias MD A nderson PANEL LACTATE DEHYDROGENASE 2020-08-01 07:08:00 Rayray Arias MD And erson PHOSPHORUS LEVEL 2020-08-01 07:08:00 Rayray Arias MD MAGNESIUM LEVEL 2020-08-01 07:08:00 Rayray Arias MD URIC ACID 2020-08-01 07:08:00 Rayray Arias MD Results CBC 2020-08-01 07:08:00 Rayray Arias MD MANUAL DIFFERENTIAL 2020-08-01 07:08:00 Rayray Arias MD Karan son GLUCOSE LEVEL 2020-08-01 07:08:00 Rayray Arias MD BLOOD UREA NITROGEN 2020-08-01 07:08:00 Rayray Arias MD son ELECTROLYTE PANEL 2020-08-01 07:08:00 Rayray Arias MDo n SERUM CREATININE 2020-08-01 07:08:00 Rayray Arias MD .GLOMERULAR FILTRATION RATE 2020-08-01 07:08:00 Rayray Arias MD CALCIUM LEVEL TOTAL 2020-08-01 07:08:00 Rayray Arias MD Karan son ALBUMIN LEVEL 2020-08-01 07:08:00 Rayray Arias MD ALKALINE PHOSPHATASE 2020-08-01 07:08:00 Rayray Arias MD Nahid rson ALANINE AMINOTRANSFERASE 2020-08-01 07:08:00 Rayray Arias MD ASPARTATE AMINOTRANSFERASE 2020-08-01 07:08:00 Rayray Arias TOTAL PROTEIN 2020-08-01 07:08:00 Rayray Arias MD FRACTIONATED BILIRUBIN 2020-08-01 07:08:00 Rayray Arias MD POC GLUCOSE SCREEN 2020-08-01 07:05:00 Rayray Arias MD on POC CRITICAL 2020-08-01 03:32:00 Rayray Arias MD POC GLUCOSE SCREEN 2020-08-01 03:32:00 Rayray Arias MD on POC CRITICAL 2020-08-01 00:24:00 Rayray Arias MD POC GLUCOSE SCREEN 2020-08-01 00:24:00 Rayray Arias MD on POC CRITICAL 2020-08-01 00:11:00 Rayray Arias MD POC GLUCOSE SCREEN 2020-08-01 00:11:00 Rayray Arias MD on POC GLUCOSE SCREEN 2020-07-31 18:21:00 Rayray Arias MD on POC GLUCOSE SCREEN 2020-07-31 12:59:00 Rayray Arias MD on NT PRO BNP 2020-07-31 05:44:00 Rayray Arias MD C REACTIVE PROTEIN 2020-07-31 05:44:00 Rayray Arias MD on FERRITIN LVL 2020-07-31 05:44:00 Rayray Arias MD TYPE AND SCREEN 2020-07-31 05:44:00 Rayray Arias MD COMPLETE BLOOD COUNT W/ 2020-07-31 05:44:00 Rayray Arias MD nderson DIFFERENTIAL BASIC METABOLIC PANEL, 2020-07-31 05:44:00 Rayray Arias MD CALCIUM TOTAL BILIRUBIN TOTAL 2020-07-31 05:44:00 Rayray Arias MD ABORH 2020-07-31 05:44:00 Rayray Arias MD ANTIBODY SCREEN 2020-07-31 05:44:00 Rayray Arias MD GLUCOSE LEVEL 2020-07-31 05:44:00 Rayray Arias MD BLOOD UREA NITROGEN 2020-07-31 05:44:00 Rayray Arias MD Karanmaya cee ELECTROLYTE PANEL 2020-07-31 05:44:00 Rayray Arias MD SERUM CREATININE 2020-07-31 05:44:00 Rayray Arias MD .GLOMERULAR FILTRATION RATE 2020-07-31 05:44:00 Rayray Arias MD CALCIUM LEVEL TOTAL 2020-07-31 05:44:00 Rayray Arias MD Karan son Results CBC 2020-07-31 05:44:00 Rayray Arias MD MANUAL DIFFERENTIAL 2020-07-31 05:44:00 Rayray Arias MD Karanmaya cee CLOT EXPIRATION DATE 2020-07-31 05:44:00 Rayray Arias MD Nahid rson TMP INTERPRETATION ANTIBODY 2020-07-31 05:44:00 Rayray Arias MD SCREEN NEGATIVE POC GLUCOSE SCREEN 2020-07-31 05:41:00 Rayray Arias MD on POC GLUCOSE SCREEN 2020-07-31 02:52:00 Rayray Arias MD on HEMODIALYSIS 2020-07-31 01:10:35 Akanksha Campbell MD HEPATITIS B SURFACE 2020-07-31 00:24:00 Akanksha Campbell MD Karan son ANTIGEN, SERUM HEPATITIS B SURFACE AG 2020-07-31 00:24:00 Ariel Zazueta MD W/CONFIRM POC GLUCOSE SCREEN 2020-07-30 18:09:00 Rayray Arias MD Toi on COMPLETE BLOOD COUNT W/ 2020-07-30 14:40:00 Sydney Whitaker MD nderson DIFFERENTIAL COMPREHENSIVE METABOLIC 2020-07-30 14:40:00 Sydney Whitaker MD nderson PANEL LACTATE DEHYDROGENASE 2020-07-30 14:40:00 Sydney Whitaker MD And erschano MAGNESIUM LEVEL 2020-07-30 14:40:00 Sydney Whitaker MD PARTIAL THROMBOPLASTIN TIME 2020-07-30 14:40:00 Sydney Whitaker MD PHOSPHORUS LEVEL 2020-07-30 14:40:00 Sydney Whitaker MD PROTHROMBIN TIME 2020-07-30 14:40:00 Sydney Whitaker MD TYPE AND SCREEN 2020-07-30 14:40:00 Sydney Whitaker MD URIC ACID 2020-07-30 14:40:00 Sydney Whitaker MD URINALYSIS WITH MICROSCOPIC 2020-07-30 14:40:00 Sydney Whitaker MD IF INDICATED RESEARCH PROTOCOL [id number] 2020-07-30 14:40:00 Tanisha Sy MD Results CBC 2020-07-30 14:40:00 Sydney Whitaker MD MANUAL DIFFERENTIAL 2020-07-30 14:40:00 Sydney Whitaker MD Karanmaya cee GLUCOSE LEVEL 2020-07-30 14:40:00 Sydney Whitaker MD BLOOD UREA NITROGEN 2020-07-30 14:40:00 Sydney Whitaker MD Karanmaya cee ELECTROLYTE PANEL 2020-07-30 14:40:00 Sydney Whitaker MD n SERUM CREATININE 2020-07-30 14:40:00 Sydney Whitaker MD .GLOMERULAR FILTRATION RATE 2020-07-30 14:40:00 Sydney Whitaker MD CALCIUM LEVEL TOTAL 2020-07-30 14:40:00 Sydney Whitaker MD Karanmaya cee ALBUMIN LEVEL 2020-07-30 14:40:00 Sydney Whitaker MD ALKALINE PHOSPHATASE 2020-07-30 14:40:00 Sydney Whitaker MD rschano ALANINE AMINOTRANSFERASE 2020-07-30 14:40:00 Sydney Whitaker MD ASPARTATE AMINOTRANSFERASE 2020-07-30 14:40:00 Sydney Whitaker TOTAL PROTEIN 2020-07-30 14:40:00 Sydney Whitaker MD FRACTIONATED BILIRUBIN 2020-07-30 14:40:00 Sydney Whitaker MD derson ABORH 2020-07-30 14:40:00 Sydney Whitaker MD ANTIBODY SCREEN 2020-07-30 14:40:00 Sydney Whitaker MD URINALYSIS MICROSCOPIC 2020-07-30 14:40:00 Sydney Whitaker MDson CLOT EXPIRATION DATE 2020-07-30 14:40:00 Sydney Whitaker MD rson TMP INTERPRETATION ANTIBODY 2020-07-30 14:40:00 Sydney Whitaker MD SCREEN NEGATIVE COVID-19 (SARS-COV-2) 2020-07-29 15:05:00 Rayray Arias MD And katie PCR-ASYMPTOMATIC MC XR CHEST 2 VW 2020-07-20 17:04:17 Uday Butler MD ID REPLACE CV CATH, 2020-07-20 16:20:00 Kristin Laurent MD Karan son COMPLETE, NON-TUNNELED, W/O SUBQ PORT OR PUMP COMPLETE BLOOD COUNT W/ 2020-07-20 13:27:00 Rayray Arias MD nderson DIFFERENTIAL COMPREHENSIVE METABOLIC 2020-07-20 13:27:00 Rayray Arias MD nderson PANEL MAGNESIUM LEVEL 2020-07-20 13:27:00 Rayray Arias MD Results CBC 2020-07-20 13:27:00 Rayray Arias MD MANUAL DIFFERENTIAL 2020-07-20 13:27:00 Rayray Arias MD [facility] GLUCOSE LEVEL 2020-07-20 13:27:00 Rayray Arias MD BLOOD UREA NITROGEN 2020-07-20 13:27:00 Rayray Arias MD Karan [facility] ELECTROLYTE PANEL 2020-07-20 13:27:00 Rayray Arias MD SERUM CREATININE 2020-07-20 13:27:00 Rayray Arias MD .GLOMERULAR FILTRATION RATE 2020-07-20 13:27:00 Rayray Arias MD CALCIUM LEVEL TOTAL 2020-07-20 13:27:00 Rayray Arias MD Karanmaya cee ALBUMIN LEVEL 2020-07-20 13:27:00 Rayray Arias MD ALKALINE PHOSPHATASE 2020-07-20 13:27:00 Rayray Arias MD rschano ALANINE AMINOTRANSFERASE 2020-07-20 13:27:00 Rayray Arias MD ASPARTATE AMINOTRANSFERASE 2020-07-20 13:27:00 Rayray Arias TOTAL PROTEIN 2020-07-20 13:27:00 Rayray Arias MD FRACTIONATED BILIRUBIN 2020-07-20 13:27:00 Rayray Arias MD derson STERILITY BONE MARROW 2020-07-19 20:35:00 Aicha Adams MD nderson CULTURE HP FC BAG MINI 2020-07-19 20:35:00 Aicha Adams MD INTERPRETATION AND REPORT HP FC BAG MYELOMA 2020-07-19 20:35:00 [facility] INTERPRETATION AND REPORT COMPLETE BLOOD COUNT W/ 2020-07-19 12:19:00 Rayray Arias MDrson DIFFERENTIAL COMPREHENSIVE METABOLIC 2020-07-19 12:19:00 Rayray Arias MD nderson PANEL MAGNESIUM LEVEL 2020-07-19 12:19:00 Rayray Arias MD Results CBC 2020-07-19 12:19:00 Rayray Arias MD MANUAL DIFFERENTIAL 2020-07-19 12:19:00 Rayray Arias MD GLUCOSE LEVEL 2020-07-19 12:19:00 Rayray Arias MD BLOOD UREA NITROGEN 2020-07-19 12:19:00 Rayray Arias MD ELECTROLYTE PANEL 2020-07-19 12:19:00 Rayray Arias MD SERUM CREATININE 2020-07-19 12:19:00 Rayray Arias MD .GLOMERULAR FILTRATION RATE 2020-07-19 12:19:00 Rayray Arias MD CALCIUM LEVEL TOTAL 2020-07-19 12:19:00 Juana, Rayray MD Karan son ALBUMIN LEVEL 2020-07-19 12:19:00 Rayray Arias MD ALKALINE PHOSPHATASE 2020-07-19 12:19:00 Rayray Arias MD rschano ALANINE AMINOTRANSFERASE 2020-07-19 12:19:00 Rayray Arias MD ASPARTATE AMINOTRANSFERASE 2020-07-19 12:19:00 Rayray Arias TOTAL PROTEIN 2020-07-19 12:19:00 Rayray Arias MD FRACTIONATED BILIRUBIN 2020-07-19 12:19:00 Rayray Arias MD derson STERILITY BONE MARROW 2020-07-18 20:13:00 Aicha Adams MD nderson CULTURE HP FC BAG MINI 2020-07-18 20:13:00 Aicha Adams MD INTERPRETATION AND REPORT HP FC BAG MYELOMA 2020-07-18 20:13:00 Aicha Adams MD Karan son INTERPRETATION AND REPORT COMPLETE BLOOD COUNT W/ 2020-07-18 13:14:00 Rayray Arias MDrson DIFFERENTIAL COMPREHENSIVE METABOLIC 2020-07-18 13:14:00 Rayray Arias MD nderson PANEL MAGNESIUM LEVEL 2020-07-18 13:14:00 Rayray Arias MD Results CBC 2020-07-18 13:14:00 Rayray Arias MD MANUAL DIFFERENTIAL 2020-07-18 13:14:00 [facility] GLUCOSE LEVEL 2020-07-18 13:14:00 Rayray Arias MD BLOOD UREA NITROGEN 2020-07-18 13:14:00 Rayray Arias MD Karan [facility] ELECTROLYTE PANEL 2020-07-18 13:14:00 Rayray Arias MD SERUM CREATININE 2020-07-18 13:14:00 Rayray Arias MD .GLOMERULAR FILTRATION RATE 2020-07-18 13:14:00 Rayray Arias MD CALCIUM LEVEL TOTAL 2020-07-18 13:14:00 Rayray Arias MD Karan [facility] ALBUMIN LEVEL 2020-07-18 13:14:00 Rayray Arias MD ALKALINE PHOSPHATASE 2020-07-18 13:14:00 Rayray Arias MD Nahid rschano ALANINE AMINOTRANSFERASE 2020-07-18 13:14:00 Rayray Arias MD ASPARTATE AMINOTRANSFERASE 2020-07-18 13:14:00 Rayray Arias TOTAL PROTEIN 2020-07-18 13:14:00 Rayray Arias MD FRACTIONATED BILIRUBIN 2020-07-18 13:14:00 Rayray Arias MDson COMPLETE BLOOD COUNT W/ 2020-07-17 13:34:00 Kristin Laurent MDrschano DIFFERENTIAL COMPREHENSIVE METABOLIC 2020-07-17 13:34:00 Kristin Laurent MDrson PANEL MAGNESIUM LEVEL 2020-07-17 13:34:00 Kristin Laurent MD TYPE AND SCREEN 2020-07-17 13:34:00 Kristin Laurent MD Results CBC 2020-07-17 13:34:00 Kristin Laurent MD MANUAL DIFFERENTIAL 2020-07-17 13:34:00 Kristin Laurent MD [facility] GLUCOSE LEVEL 2020-07-17 13:34:00 Kristin Laurent MD BLOOD UREA NITROGEN 2020-07-17 13:34:00 Kristin Laurent MD [facility] ELECTROLYTE PANEL 2020-07-17 13:34:00 Kristin Laurent MD [facility] SERUM CREATININE 2020-07-17 13:34:00 Kristin Laurent MD .GLOMERULAR FILTRATION RATE 2020-07-17 13:34:00 Kristin Laurent MD CALCIUM LEVEL TOTAL 2020-07-17 13:34:00 Kristin Laurent MD Karan son ABORH 2020-07-17 13:34:00 Kristin Laurent MD ALBUMIN LEVEL 2020-07-17 13:34:00 Kristin Laurent MD ALKALINE PHOSPHATASE 2020-07-17 13:34:00 Kristin Laurent MD Nahid rson ALANINE AMINOTRANSFERASE 2020-07-17 13:34:00 Kristin Laurent MD ASPARTATE AMINOTRANSFERASE 2020-07-17 13:34:00 Kristin Laurent TOTAL PROTEIN 2020-07-17 13:34:00 Kristin Laurent MD FRACTIONATED BILIRUBIN 2020-07-17 13:34:00 Kristin Laurent MD derson ANTIBODY SCREEN 2020-07-17 13:34:00 Kristin Laurent MD CLOT EXPIRATION DATE 2020-07-17 13:34:00 Kristin Laurent MD Nahid rson COMPLETE BLOOD COUNT W/ 2020-07-16 15:45:00 Rayray Arias MD nderson DIFFERENTIAL COMPREHENSIVE METABOLIC 2020-07-16 15:45:00 Rayray Arias MD nderson PANEL MAGNESIUM LEVEL 2020-07-16 15:45:00 Rayray Arias MD HP FC FLOW CYTOMETRY BLOOD 2020-07-16 15:45:00 Rayray Arias COLLECTION Results CBC 2020-07-16 15:45:00 Rayray Arias MD MANUAL DIFFERENTIAL 2020-07-16 15:45:00 Rayray Arias MD [facility] GLUCOSE LEVEL 2020-07-16 15:45:00 Rayray Arias MD BLOOD UREA NITROGEN 2020-07-16 15:45:00 Rayray Arias MD [facility] ELECTROLYTE PANEL 2020-07-16 15:45:00 Rayray Arias MD yudelka SERUM CREATININE 2020-07-16 15:45:00 Rayray Arais MD .GLOMERULAR FILTRATION RATE 2020-07-16 15:45:00 Rayray Arias MD CALCIUM LEVEL TOTAL 2020-07-16 15:45:00 Rayray Arias MD [facility] ALBUMIN LEVEL 2020-07-16 15:45:00 Rayray Arias MD ALKALINE PHOSPHATASE 2020-07-16 15:45:00 Rayray Arias MD [facility] ALANINE AMINOTRANSFERASE 2020-07-16 15:45:00 Rayray Arias MD ASPARTATE AMINOTRANSFERASE 2020-07-16 15:45:00 Rayray Arias TOTAL PROTEIN 2020-07-16 15:45:00 Rayray Arias MD FRACTIONATED BILIRUBIN 2020-07-16 15:45:00 Rayray Arias MD HP FC CD34 2020-07-16 15:45:00 Rayray Arias MD POC GLUCOSE SCREEN 2020-07-12 17:29:00 Bret, Evelyn Whitfield rschano XR CHEST 1 VW PORTABLE 2020-07-12 17:04:18 Joi Lobo MD POC GLUCOSE SCREEN 2020-07-12 16:24:00 Joi Lobo MD VASCULAR ACCESS ULTRASOUND 2020-07-12 16:18:58 Joi Lobo MD ID INSERT NON-TUNNEL CV 2020-07-12 16:00:00 Sydney Whitaker MD nderson CATH ID CHG US GUIDE, VASCULAR 2020-07-12 16:00:00 Sydney Whitaker MD ACCESS CT SINUS WO CONTRAST 2020-07-12 14:26:36 Sydney Whitaker MD XR BONE SURVEY COMPLETE 2020-07-10 14:57:06 Sydney Whitaker MD nderson XR CHEST 2 VW 2020-07-10 14:54:49 Sydney Whitaker MD EKG, 12-LEAD (SCHEDULED) 2020-07-10 00:00:00 Sydney Whitaker MD SPIROMETRY W/O DILATORS, 2020-07-09 20:51:52 Sydney Whitaker MD DLCO AND BODY PLETHSMOGRAPHIC LUNG VOLUMES ECHOCARDIOGRAM 2D COMPLETE 2020-07-09 19:55:41 Sydney Whitaker DONOR INFECTIOUS DISEASE 2020-07-09 18:13:00 Sydney Whitaker MD GROUPING CMV ANTIBODY IGG AND IGM 2020-07-09 18:13:00 Sydney Whitaker MD CMV ANTIBODY IGG AND IGM 2020-07-09 18:13:00 Sydney Whitaker MD PATH REVIEW PROTEIN ELECTROPHORESIS, 2020-07-09 18:13:00 Sydney Whitaker MD SERUM IMMUNOFIXATION 2020-07-09 18:13:00 Sydney Whitaker MD ELECTROPHORESIS IMMUNOGLOBULIN A SERUM 2020-07-09 18:13:00 Sydney Whitaker MD BETA 2 MICROGLOBULIN 2020-07-09 18:13:00 Sydney Whitaker MD C REACTIVE PROTEIN 2020-07-09 18:13:00 Sydney Whitaker MD on FREE KAPPA LIGHT CHAIN 2020-07-09 18:13:00 Sydney Whitaker MD derson DONOR RAPID PLASMA REAGIN 2020-07-09 18:13:00 Sydney Whitaker MD (RPR) FREE KAPPA/FREE LAMBDA 2020-07-09 18:13:00 Sydney Whitkaer MD derson RATIO TMP DONOR RPR PATH INTERP 2020-07-09 18:13:00 Sydney Whitaker MD TMP DONOR WALKER PATH INTERP 2020-07-09 18:13:00 Sydney Whitaker MD TMP DONOR WNV PATH INTERP 2020-07-09 18:13:00 Sydney Whitaker MD TMP DONOR ID PATH INTERP 2020-07-09 18:13:00 Sydney Whitaker MD .DR. GRIFFIN ALONZO PATH REVIEW 2020-07-09 18:13:00 Sydney Whitaker PROTEIN ELECTROPHORESIS 2020-07-09 15:04:00 Sydney Whitaker MDrson URINE IMMUNOFIXATION 2020-07-09 15:04:00 Sydney Whitaker MD ELECTROPHORESIS URINE URINE TOTAL PROTEIN 2020-07-09 15:04:00 Sydney Whitaker MD Karan son .TOTAL VOLUME 2020-07-09 15:04:00 Sydney Whitaker MD .DR. GRIFFIN U PROT ELEC PATH 2020-07-09 15:04:00 Sydney Whitaker MD REVIEW .DR ANGELES UIFE PATH REVIEW 2020-07-09 15:04:00 Sydney Whitaker MD COMPLETE BLOOD COUNT W/ 2020-07-09 15:02:00 Sydney Whitaker MDon DIFFERENTIAL COMPREHENSIVE METABOLIC 2020-07-09 15:02:00 Sydney Whitaker MDon PANEL LACTATE DEHYDROGENASE 2020-07-09 15:02:00 Sydney Whitaker MD And erson MAGNESIUM LEVEL 2020-07-09 15:02:00 Sydney Whitaker MD PARTIAL THROMBOPLASTIN TIME 2020-07-09 15:02:00 Sydney Whitaker MD PHOSPHORUS LEVEL 2020-07-09 15:02:00 Sydney Whitaker MD PROTHROMBIN TIME 2020-07-09 15:02:00 Sydney Whitaker MD TYPE AND SCREEN 2020-07-09 15:02:00 Sydney Whitaker MD URIC ACID 2020-07-09 15:02:00 Sydney Whitaker MD Results CBC 2020-07-09 15:02:00 Sydney Whitaker MD MANUAL DIFFERENTIAL 2020-07-09 15:02:00 [facility] GLUCOSE LEVEL 2020-07-09 15:02:00 Sydney Whitaker MD BLOOD UREA NITROGEN 2020-07-09 15:02:00 Sydney [facility]htaker [facility] ELECTROLYTE PANEL 2020-07-09 15:02:00 Sydney Whitaker MD SERUM CREATININE 2020-07-09 15:02:00 Sydney Whitaker MD .GLOMERULAR FILTRATION RATE 2020-07-09 15:02:00 Sydney Whitaker MD CALCIUM LEVEL TOTAL 2020-07-09 15:02:00 Sydney Whitaker MD [facility] ALBUMIN LEVEL 2020-07-09 15:02:00 Sydney Whitaker MD ALKALINE PHOSPHATASE 2020-07-09 15:02:00 Sydney Whitaker MD ALANINE AMINOTRANSFERASE 2020-07-09 15:02:00 Sydney Whitaker MD ASPARTATE AMINOTRANSFERASE 2020-07-09 15:02:00 Sydney Whitaker TOTAL PROTEIN 2020-07-09 15:02:00 Sydney Whitaker MD FRACTIONATED BILIRUBIN 2020-07-09 15:02:00 Sydney Whitaker MD An derson ABORH 2020-07-09 15:02:00 Sydney Whitaker MD ANTIBODY SCREEN 2020-07-09 15:02:00 Sydney Whitaker MD CLOT EXPIRATION DATE 2020-07-09 15:02:00 Sydney Whitaker MD COVID-19 (SARS-COV-2) 2020-07-08 15:26:00 Sydney Whitaker PCR-ASYMPTOMATIC HEMATOPATHOLOGY BONE MARROW 2020-05-24 16:42:00 Michael Grajeda MD INTERPRETATION HEMATOPATHOLOGY BONE MARROW 2020-05-24 16:42:00 Michael Grajeda MD DIFFERENTIAL HP FC FLOW CYTOMETRY BLOOD 2020-05-24 16:41:00 Chetna Brian COLLECTION HP CYTOGENETICS BLOOD 2020-05-24 16:41:00 Chetna Brian MD And erson COLLECTION HP FC MRD MYELOMA 2020-05-24 16:41:00 Chetna Brian MD Andchacortao n INTERPRETATION AND REPORT HP CG CHROMOSOME ANALYSIS 2020-05-24 16:41:00 Chetna Brian MD INTERPRETATION AND REPORT HP CG MYELOMA FISH TESTS 2020-05-24 16:41:00 Chetna Brian MD INTERPRETATION AND REPORT POC GLUCOSE SCREEN 2020-05-24 15:55:00 Sydney Whitaker MD on ID DIAGNOSTIC BONE MARROW 2020-05-24 15:00:00 Chetna Brian MD BIOPSIES & ASPIRATIONS PERIPHERAL SMEAR FOR BONE 2020-05-24 12:58:00 Chetna Brian MD MARROW COMPLETE BLOOD COUNT W/ 2020-05-24 12:58:00 Sydney Whitaker MDon DIFFERENTIAL Results CBC 2020-05-24 12:58:00 Sydney Whitaker MD MANUAL DIFFERENTIAL 2020-05-24 12:58:00 Sydney Whitaker MD Karan son COVID-19 (SARS-COV-2) 2020-05-22 17:16:00 Chetna Brian MD And chacortaon PCR-ASYMPTOMATIC MC COMPLETE BLOOD COUNT W/ 2020-05-14 14:34:00 Sydney Whitaker MD DIFFERENTIAL TYPE AND SCREEN 2020-05-14 14:34:00 Sydney Whitaker MD COMPREHENSIVE METABOLIC 2020-05-14 14:34:00 Sydney Whitaker MD PANEL PHOSPHORUS LEVEL 2020-05-14 14:34:00 Sydney Whitaker MD URIC ACID 2020-05-14 14:34:00 Sydney Whitaker MD LACTATE DEHYDROGENASE 2020-05-14 14:34:00 Sydney Whitaker MD And erson MAGNESIUM LEVEL 2020-05-14 14:34:00 Sydney Whitaker MD BETA 2 MICROGLOBULIN 2020-05-14 14:34:00 Sydney Whitaker MD Nahid rson IMMUNOGLOBULIN A SERUM 2020-05-14 14:34:00 Whitaker, Sydney dcson FREE KAPPA LIGHT CHAIN 2020-05-14 14:34:00 Whitaker, Sydney Brooks derson PROTEIN ELECTROPHORESIS, 2020-05-14 14:34:00 Whitaker, Sydney Pantoja SERUM IMMUNOFIXATION 2020-05-14 14:34:00 Whitaker, Sydney Pantoja ELECTROPHORESIS Results CBC 2020-05-14 14:34:00 Whitaker, Sydney Pantoja MANUAL DIFFERENTIAL 2020-05-14 14:34:00 Whitaker, Sydney Florez [facility] GLUCOSE LEVEL 2020-05-14 14:34:00 Whitaker, Sydney Pantoja BLOOD UREA NITROGEN 2020-05-14 14:34:00 Whitaker, Sydney Florez MD [facility] ELECTROLYTE PANEL 2020-05-14 14:34:00 Whitaker, Sydney Cm n SERUM CREATININE 2020-05-14 14:34:00 Whitaker, Sydney Pantoja .GLOMERULAR FILTRATION RATE 2020-05-14 14:34:00 Whitaker, Sydney Pantoja CALCIUM LEVEL TOTAL 2020-05-14 14:34:00 Whiatker, Sydney Florez MD [facility] ALBUMIN LEVEL 2020-05-14 14:34:00 Whitaker, Sydney Pantoja ALKALINE PHOSPHATASE 2020-05-14 14:34:00 Whitaker, Sydney rodriguez ALANINE AMINOTRANSFERASE 2020-05-14 14:34:00 Whitaker, Sydney Pantoja ASPARTATE AMINOTRANSFERASE 2020-05-14 14:34:00 Whitaker, Sydney Pantoja TOTAL PROTEIN 2020-05-14 14:34:00 Whitaker, Sydney Pantoja FRACTIONATED BILIRUBIN 2020-05-14 14:34:00 Whitaker, Sydney dcson ABORH 2020-05-14 14:34:00 Whitaker, Sydney Pantoja ANTIBODY SCREEN 2020-05-14 14:34:00 Whitaker, Sydney Pantoja FREE KAPPA/FREE LAMBDA 2020-05-14 14:34:00 Whitaker, Sydney Brooks dercoleman RATIO CLOT EXPIRATION DATE 2020-05-14 14:34:00 Whitaker, Sydney rodriguez TMP INTERPRETATION ANTIBODY 2020-05-14 14:34:00 Whitaker, Sydney Pantoja SCREEN NEGATIVE .DR. EILAS ROSADO PATH REVIEW 2020-05-14 14:34:00 Sydney Whitaker POC GLUCOSE 2020-03-15 10:16:00 Forrest Lewis-Hsi CREATION, AV FISTULA 2020-03-15 07:34:00 Forrest Lewis-Hsi POC PANEL 2020-03-15 07:20:00 Forrest Lewis-Hsi COMPREHENSIVE METABOLIC 2020-03-15 07:00:00 Joshua Forrest [facility] PANEL Lewis-Hsi ESTIMATED GFR 2020-03-15 07:00:00 Forrest Lewis-Hsi ABO AND RH CONFIRMATION 2020-03-15 07:00:00 Joshua Forrest weller Lin Lewis-Hsi ECG PRE/POST OP 2020-03-13 11:54:19 Forrest Lewis-Hsi XR CHEST 2 VW 2020-03-13 11:22:27 Forrest Lewis-Hsi COVID-19 QUALITATIVE RT-PCR 2020-03-13 10:12:00 JoshuaForrest-Hsi TYPE AND SCREEN 2020-03-13 10:12:00 JoshuaForrest-Hsi PROTHROMBIN TIME WITH INR 2020-03-13 10:12:00 JoshuaKatForrest Nathanael beltre Worship Lewis-[facility] HC COMPLETE BLD COUNT 2020-03-13 10:12:00 Forrest Lewis W/AUTO DIFF [facility]si HEMOGLOBIN A1C 2020-03-13 10:12:00 Andrew Goldsmith Sahara oj Rodriguez HEPATIC FUNCTION PANEL 2020-03-13 10:12:00 Paty Goldsmith US VEIN MAPPING UPPER 2020-02-23 09:00:00 Forrest Lewis EXTREMITY BILATERAL [facility]si COMPLETE BLOOD COUNT W/ 2020-01-30 12:07:00 Sydney Whitaker MD nderson DIFFERENTIAL TYPE AND SCREEN 2020-01-30 12:07:00 Sydney Whitaker MD COMPREHENSIVE METABOLIC 2020-01-30 12:07:00 Sydney Whitaker MD nderson PANEL PHOSPHORUS LEVEL 2020-01-30 12:07:00 Sydney Whitaker MD URIC ACID 2020-01-30 12:07:00 Sydney Whitaker MD LACTATE DEHYDROGENASE 2020-01-30 12:07:00 Sydney Whitaker MD And erson MAGNESIUM LEVEL 2020-01-30 12:07:00 Sydney Whitaker MD BETA 2 MICROGLOBULIN 2020-01-30 12:07:00 Julianne, Sydney rodriguez IMMUNOGLOBULIN A SERUM 2020-01-30 12:07:00 Julianne, Sydney coker FREE KAPPA LIGHT CHAIN 2020-01-30 12:07:00 Sydney Whitaker MD derson PROTEIN ELECTROPHORESIS, 2020-01-30 12:07:00 Sydney Whitaker MD SERUM IMMUNOFIXATION 2020-01-30 12:07:00 Sydney Whitaker MD ELECTROPHORESIS Results CBC 2020-01-30 12:07:00 Sydney Whitaker MD MANUAL DIFFERENTIAL 2020-01-30 12:07:00 Sydney Whitaker MD Karan son GLUCOSE LEVEL 2020-01-30 12:07:00 Sydney Whitaker MD BLOOD UREA NITROGEN 2020-01-30 12:07:00 Sydney Whitaker MD Karan son ELECTROLYTE PANEL 2020-01-30 12:07:00 Sydney Whitaker MD n SERUM CREATININE 2020-01-30 12:07:00 Sydney Whitaker MD .GLOMERULAR FILTRATION RATE 2020-01-30 12:07:00 Sydney Whitaker MD CALCIUM LEVEL TOTAL 2020-01-30 12:07:00 Sydney Whitaker MD Karan son ALBUMIN LEVEL 2020-01-30 12:07:00 Sydney Whitaker MD ALKALINE PHOSPHATASE 2020-01-30 12:07:00 Sydney Whitaker MD rson ALANINE AMINOTRANSFERASE 2020-01-30 12:07:00 Sydney Whitaker MD ASPARTATE AMINOTRANSFERASE 2020-01-30 12:07:00 Sydney Whitaker TOTAL PROTEIN 2020-01-30 12:07:00 Sydney Whitaker MD FRACTIONATED BILIRUBIN 2020-01-30 12:07:00 Sydney Whitaker MD derson ABORH 2020-01-30 12:07:00 Sydney Whitaker MD ANTIBODY SCREEN 2020-01-30 12:07:00 Sydney Whitaker MD FREE KAPPA/FREE LAMBDA 2020-01-30 12:07:00 Sydney Whitaker MD derson RATIO CLOT EXPIRATION DATE 2020-01-30 12:07:00 Sydney Whitaker MD Nahid rson TMP INTERPRETATION ANTIBODY 2020-01-30 12:07:00 Sydney Whitaker MD SCREEN NEGATIVE Plan of Care Planned Activity Planned Date Details Comments Source Future Scheduled 2020-11-11 INFLUENZA VACCINE [facility] 00:00:00 [code = INFLUENZA VACCINE] Future Scheduled 1994-01-14 Hepatitis C [facility] 00:00:00 screening (procedure) [code = [id number]] Future Scheduled 1988 COVID-19 VACCINE (1) [facility] 00:00:00 [code = COVID-19 VACCINE (1)] Future Scheduled 1986-01-14 DIABETES: RETINAL [facility] 00:00:00 EYE EXAM [code = DIABETES: RETINAL EYE EXAM] Future Scheduled 1986-01-14 DIABETIC FOOT EXAM [facility] 00:00:00 [code = DIABETIC FOOT EXAM] Encounters Start End Encounter Admission Attending Care Care Encounter Source Date/Time Date/Time Type Type Clinicians Facility Department ID 2020-08-27 2020-08-27 Outpatient BATOOL PERALTA MDA MDA [id number] 10:40:00 23:59:00 EFREM Cm o yudelka 2020-08-27 2020-08-27 Outpatient BATOOL ARIAS GUME MDA [id number] 11:15:45 11:15:45 RAYRAY jha 2020-08-27 2020-08-27 Outpatient BATOOL PERALTA MDA MDA [id number] 09:30:00 10:39:00 EFREM jha 2020-08-24 2020-08-24 Outpatient BATOOL PERALTA GUME MDA [id number] 08:20:13 23:59:00 EFREM Cm o yudelka 2020-08-24 2020-08-24 Outpatient BATOOL PERALTA MDA MDA [id number] 08:16:29 08:19:00 EFREM Cm o yudelka 2020-08-21 2020-08-21 Outpatient BATOOL PERALTA MDA MDA [id number] MD 15:57:25 23:59:00 EFREM Cm o yudelka 2020-08-21 2020-08-21 Outpatient BATOOL PERALTA, MDA MDA [id number] MD 08:56:31 15:56:00 EFREM jha 2020-08-21 2020-08-21 Outpatient BATOOL PERALTA, MDA MDA [id number] MD 08:52:58 08:55:00 EFREM jha 2020-08-18 2020-08-18 Outpatient BATOOL ARIAS, MDA MDA [id number] MD 09:40:00 23:59:00 RAYRAY Cm o yudelka 2020-08-17 2020-08-17 Outpatient BATOOL ARIAS, MDA MDA [id number] MD 13:37:20 23:59:00 RAYRAY Cm o yudelka 2020-08-17 2020-08-17 Outpatient BATOOL PERALTA, MDA MDA [id number] 10:00:00 13:36:00 EFREM jha 2020-08-17 2020-08-17 Outpatient BATOOL PERALTA, MDA MDA [id number] 08:00:00 09:59:00 EFREM Cm o yudelka 2020-08-15 2020-08-15 Outpatient SUSI, MDA MDA [id number] 07:20:14 23:59:00 ANAND jha 2020-08-15 2020-08-15 Outpatient SUSI, MDA MDA [id number] 07:19:58 07:19:58 ANAND jha 2020-07-30 2020-08-14 Inpatient BASIA, MDA Transplant [id number] 12:47:00 18:42:00 JUAN CARLOS Russo so n 2020-08-13 2020-08-13 Inpatient RHIANNONMISA, MDA MDA [id number] MD 00:12:23 00:42:55 JUAN CARLOS Russo so n 2020-08-12 2020-08-12 Inpatient HERBIE, MDA MDA [id number] MD 04:24:44 04:51:20 VENANCIO Cm o yudelka 2020-08-11 2020-08-11 Inpatient BATOOL MO, MDA MDA [id number] 11:09:50 11:56:48 JUAN CARLOS jha 2020-08-06 2020-08-06 Inpatient BATOOL ARIAS, MDA MDA [id number] MD 18:47:43 18:47:47 RAYRAY jha 2020-08-02 2020-08-02 Outpatient BATOOL NIEVES, MDA MDA [id number] 14:35:00 23:59:00 FRANKI jha 2020-07-31 2020-07-31 Outpatient BATOOL GRAJEDA, MDA MDA [id number] 10:28:00 10:28:00 MICHAEL jha 2020-07-30 2020-07-30 Outpatient SYDNEY PEREYRA MDA MDA [id number] 08:29:59 12:46:00 Toi jha 2020-07-30 2020-07-30 Outpatient BATOOL ARIAS, MDA MDA [id number] 09:49:16 09:49:16 RAYRAY jha 2020-07-30 2020-07-30 Outpatient BATOOL GRAJEDA, MDA MDA [id number] 09:47:42 09:47:42 MICHAEL jha 2020-07-29 2020-07-29 Outpatient BATOOL ARIAS, MDA MDA [id number] MD 09:23:30 23:59:00 RAYRAY jha 2020-07-29 2020-07-29 Outpatient SYDNEY PEREYRA MDA MDA [id number] 09:56:24 10:10:01 Toi jha 2020-07-22 2020-07-22 Outpatient BATOOL ARIAS, MDA MDA [id number] 08:33:13 23:59:00 RAYRAY jha 2020-07-20 2020-07-20 Outpatient BATOOL BUTLER, MDA MDA [id number] 11:52:07 23:59:00 UDAY jha 2020-07-20 2020-07-20 Outpatient BATOOL ARIAS, MDA MDA [id number] 10:00:00 11:51:00 RAYRAY jha 2020-07-20 2020-07-20 Outpatient [facility], MDA MDA [id number] MD 08:58:20 09:59:00 KRISTIN jha 2020-07-20 2020-07-20 Outpatient [facility], MDA MDA [id number] MD 08:11:09 08:57:00 RAYRAY jha 2020-07-19 2020-07-19 [facility] MDA [id number] 21:08:00 23:59:00 FRANKI jha 2020-07-19 2020-07-19 Outpatient [facility], MDA MDA [id number] MD 08:00:00 21:07:00 RAYRAY jha 2020-07-19 2020-07-19 Outpatient [facility], MDA MDA [id number] MD 06:45:00 07:59:00 RAYRAY jha 2020-07-18 2020-07-18 [facility], [facility] MDA [id number] 20:53:00 23:59:00 FRANKI jha 2020-07-18 2020-07-18 Outpatient [facility], MDA MDA [id number] 19:03:48 20:52:00 RADHA jha 2020-07-18 2020-07-18 Outpatient GRAJEDA, MDA MDA [id number] 09:00:00 19:02:00 MICHAEL jha 2020-07-18 2020-07-18 Outpatient [facility], MDA MDA [id number] 07:34:51 08:59:00 RAYRAY jha 2020-07-18 2020-07-18 Outpatient [facility], MDA MDA [id number] 07:30:00 07:33:00 RAYRAY jha 2020-07-17 2020-07-17 Outpatient [facility], MDA MDA [id number] 19:18:04 23:59:00 RADHA jha 2020-07-17 2020-07-17 Outpatient [facility], MDA MDA [id number] 10:39:36 19:17:00 KRISTIN jha 2020-07-17 2020-07-17 Outpatient ASAD, MDA MDA [id number] 08:20:32 10:38:00 RADHA jha 2020-07-17 2020-07-17 Outpatient MEHRAN, MDA MDA [id number] MD 08:20:17 10:38:00 KRISTIN jha 2020-07-17 2020-07-17 Outpatient NICCI, MDA MDA [id number] MD 06:58:37 08:19:00 MICHAEL jha 2020-07-16 2020-07-16 Outpatient JUANA, MDA MDA [id number] MD 12:16:40 23:59:00 RAYRAY jha 2020-07-16 2020-07-16 Outpatient JUANA, MDA MDA [id number] MD 06:45:00 12:15:00 RAYRAY jha 2020-07-16 2020-07-16 Outpatient BHANDARI, BRIGIDA MDA MDA [id number] 10:51:54 10:51:54 Toi jha 2020-07-15 2020-07-15 Outpatient [facility], SYDNEY MDA MDA [id number] MD 10:20:18 23:59:00 Toi jha 2020-07-14 2020-07-14 Outpatient [facility], SYDNEY MDA MDA [id number] MD 13:00:00 23:59:00 Toi jha 2020-07-12 2020-07-12 Outpatient MDA MDA [id number] 11:52:21 23:59:00 Toi jha 2020-07-12 2020-07-12 Outpatient [facility], SYDNEY MDA MDA [id number] MD 11:00:00 11:51:00 Toi o yudelka 2020-07-12 2020-07-12 Outpatient LASHELL, MDA MDA [id number] MD 11:18:58 11:18:58 JOI jha 2020-07-12 2020-07-12 Outpatient NICCI, MDA MDA [id number] 09:38:32 10:59:00 MICHAEL jha 2020-07-12 2020-07-12 Outpatient [facility], SYDNEY MDA MDA [id number] 07:05:00 09:37:00 Toi o yudelka 2020-07-10 2020-07-10 Outpatient JULIANNE, SYDNEY MDA MDA [id number] 10:27:48 23:59:00 Toi o n 2020-07-10 2020-07-10 Outpatient JULIANNE SYDNEY MDA MDA [id number] 09:17:55 09:17:55 Toi o n 2020-07-10 2020-07-10 Outpatient WHITAKER, SYDNEY MDA MDA [id number] 09:17:37 09:17:37 Toi o n 2020-07-09 2020-07-09 Outpatient WHITAKER, SYDNEY MDA MDA [id number] 14:00:00 23:59:00 Toi o yudelka 2020-07-09 2020-07-09 Outpatient ELANA WHITAKERM MDA MDA [id number] 13:58:13 13:59:00 Toi o yudelka 2020-07-09 2020-07-09 Outpatient [facility] SYDNEY MDA MDA [id number] 12:15:00 13:57:00 Toi o yudelka 2020-07-09 2020-07-09 Outpatient JULIANNE SYDNEY MDA MDA [id number] 07:45:00 12:14:00 Toi o yudelka 2020-07-09 2020-07-09 Outpatient NICCI, MDA MDA [id number] 10:11:45 10:11:45 MICHAEL jha 2020-07-09 2020-07-09 Outpatient NICCI, MDA MDA [id number] 10:11:25 10:11:25 MICHAEL jha 2020-07-09 2020-07-09 Outpatient JUANA, MDA MDA [id number] 10:08:46 10:08:46 RAYRAY jha 2020-07-09 2020-07-09 Outpatient BATOOL GRAJEDA, MDA MDA [id number] 07:52:31 07:52:31 MICHAEL Cm o yudelka 2020-07-08 2020-07-08 Outpatient JULIANNE SYDNEY MDA MDA [id number] 10:21:25 10:55:52 Toi jha 2020-06-25 2020-06-25 Outpatient BATOOL ARIAS, MDA MDA [id number] 22:26:53 22:26:53 RAYRAY jha 2020-06-07 2020-06-07 Outpatient [facility] [id number] [place] 00:00:00 00:00:00 415 Method i 2020-05-24 2020-05-24 Outpatient BATOOL WHITAKER SYDNEY MDA MDA [id number] 07:14:42 23:59:00 Toi jha 2020-05-24 2020-05-24 Outpatient BATOOL BRIAN, MDA MDA [id number] 06:46:25 07:13:00 CHETNA jha 2020-05-23 2020-05-23 Outpatient BATOOL GRAJEDA, MDA MDA [id number] 08:46:21 08:46:21 MICHAEL jha 2020-05-22 2020-05-22 Outpatient BATOOL GRAJEDA, MDA MDA [id number] 11:09:47 11:58:11 MICHAEL jha 2020-05-17 2020-05-17 Outpatient [facility] [id number] [place] 00:00:00 00:00:00 FORREST 098 Method i 2020-05-14 2020-05-14 Outpatient SYDNEY PEREYRA MDA MDA [id number] 07:45:00 23:59:00 Toi jha 2020-05-14 2020-05-14 Outpatient BATOOL ARIAS, MDA MDA [id number] 08:37:00 08:37:00 RAYRAY jha 2020-04-03 2020-04-03 Outpatient [facility] [id number] [place] 00:00:00 00:00:00 893 Method i 2020-03-15 2020-03-15 Outpatient [facility] [id number] [place] 00:00:00 00:00:00 FORREST 659 Method i 2020-03-13 2020-03-13 Outpatient [facility] [id number] [place] 00:00:00 00:00:00 FORREST 517 Method i 2020-03-13 2020-03-13 Outpatient [facility] [id number] [place] 00:00:00 00:00:00 [facility] [address] 2020-02-23 2020-02-23 Outpatient [facility] [id number] [place] 00:00:00 00:00:[address] 2020-02-23 2020-02-23 Outpatient JOSHUA [facility] [id number] [place] 00:00:00 00:00:00 FORREST [address] 2020-01-30 2020-01-30 Outpatient EL WHITAKER, SYDNEY MDA MDA [id number] 06:30:00 23:59:00 Toi jha 2020-01-30 2020-01-30 Outpatient EL JUANA, MDA MDA [id number] 07:31:36 10:15:39 RAYRAY jha 2019-10-07 2019-10-07 Outpatient EL BARNEY, MDA MDA [id number] 00:00:00 00:00:00 DONNIE jha 2019-10-07 2019-10-07 Outpatient EL BARNEY, MDA MDA [id number] 00:00:00 00:00:00 DONNIE jha 2019-10-07 2019-10-07 Outpatient EL BARNEY, MDA MDA [id number] MD 00:00:00 00:00:00 DONNIE jha 2019-10-07 2019-10-07 Outpatient EL BARNEY, MDA MDA [id number] 00:00:00 00:00:00 DONNIE jha 2019-10-07 2019-10-07 Outpatient EL BARNEY, MDA MDA [id number] 00:00:00 00:00:00 DONNIE jha 2018-12-27 2018-12-27 Outpatient EL FANLETITIAEYER, MDA MDA [id number] 09:30:00 12:59:00 ARNIE jha 2018-12-21 2018-12-21 Outpatient EL MUMTAZ, MDA MDA [id number] 08:37:52 23:59:00 EMY jha Results Test Description Test Time Test Comments Results Result Sourc e Comments Urine ALONZO Path 2020-08-11 UIFE Path IntThe MD Shilpa pina Review 8 follow-up urine 16:14:34 protein immunofixation electrophoretic patterns obtained with the use of antisera against IgG, IgA, IgM, bound kappa and bound lambda light chains, free kappa and free lambda light chains do not show definitive evidence of a Bence-Quigley proteinuria. Comment: NEFTALY CHAPPELL MD - [id number] by: MD Dimple HERRERA [id number] Date/Time: 08.28.2020 11:14 AM CDT Transcribed Date/Time: 08.28.2020 11:14 AM CDTElectronically Signed By: MD Dimple HERRERA [id number] on 08.28.2020 11:14 AM BANNER ALONZO Urine 2020-08-28 16:14:33 Test Item Value Reference Range Interpretation Comme nts UIFE (test code = 7916) No BJP Seen MD PantojaUrine Prot Electrophoresis Path [id number] 16:14:32 Test Item Value Reference Range Interpretation Comments U ProE Path The follow-up urine Int (test protein code = electrophoretic RACHEL CHAPPELL MD 7803) pattern does not show - 1018 4Dictated by: definitive evidence NEFTALY CHAPPELL MD - of a Bence-Quigley 41649Aqbskn ed protein peak. Date/Time: 11:14 AM CDT Transcribed Tyree e/Time: 08.28.2020 11:1 4 AM CDTElectronical ly Signed By: NELSON CHAPPELL MD - [id number] 4 on 08.28.2020 11:1 4 AM MD PantojaProtein Electrophoresis [id number] 16:14:31 Test Item Value Reference Range Interpretation Comments U Albumin % (test code = 7676) 88.5 % 30.0-50.0 H U Globulin% (test code = 8523) 11.5 % 50.0-70.0 L Lab Interpretation (test code = Abnormal 57298-2) MD PantojaTMP Interpretation Antibody Screen [id number] 21:47:04 Test Item Value Reference Range Interpretation Comments TMP Auto Neg At the present ABSC Interp time, patient (test code = plasma shows no SHERRON 7535) evidence of RBC MOJICA alloantibodies. Henok SOLIS zain by: SHERRON SOLIS,Dictated Date/Time: 08.27.2020 16:4 7 PM CDT Transcrib ed Date/Time: 08.27.2020 16:4 7 PM CDTElectronical ly Signed By: DREW IN GALINA SOLIS, on 08.27.2020 16:4 7 PM MD PantojaResearch Protocol [id number] 21:08:36 Test Item Value Reference Range Interpretation Comments Research Prot (test code = 7189) [id number] MD PantojaAntibody [id number] 19:29:00 Test Item Value Reference Range Interpretation Comments ABSC. (test code = 890-4) Negative ABSC MD PantojaUebqlpytQMVBk5587-00-15 19:28:59 Test Item Value Reference Range Interpretation Comments ABORh. (test code = 882-1) O POS MD PantojaClot Expiration [id number] 19:28:50 Test Item Value Reference Range Interpretation Comments T & S Expiration (test code = 08/30/2020 5318) MD PantojaIFE Path [id number] 18:41:50IFE Path IntThe follow-up serum protein immunofixation electrophoretic patterns obtained with the use of antisera against IgG, IgA, IgM, bound kappa and bound lambda light chains do not show definitiveevidence of a monoclonal gammopathy. 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 Comment: NEFTALY CHAPPELL MD - [id number] by: NEFTALY CHAPPELL MD - [id number] Date/Time: 08.27.2020 13:41 PM CDT Transcribed Date/Time: 08.27.2020 13:41PM CDTElectronically Signed By: NEFTALY CHAPPELL MD - [id number] on 08.27.2020 13:41 PM BANNERMD [id number] 18:41:49 Test Item Value Reference Range Interpretation Comments ALONZO (test code = 5948) See Comment MD PantojaProtein Electrophoresis Path [id number] 18:41:48 Test Item Value Reference Range Interpretation Comments SPE Path The follow-up serum Interp (test protein code = 7285) electrophoretic NELSON ESPINOSA pattern shows small, HANDY,M D - [place] [address]Pci tated by: the gamma region. NEFTALY FULTON MD - Please see concurrent 44514B ictated immunofixation Date/Time: results. 13:41 PM CDT Transcribed Tyree e/Time: 08.27.2020 13:4 1 PM CDTElectronical ly Signed By: NELSON CHAPPELL MD - 1018 4 on 08.27.2020 13:4 1 PM MD PantojaSerum Protein [id number] 18:41:47 Test Item Value Reference Range Interpretation Comments TOT PROTEIN (test code = 6.1 See_Comment L [A utomated message] 5045) The system [employer] generated this result transmitted ref erence range: 6.4 - 8. 3 gm/dL. The refe rence range was not u sed to interpret this result as normal/abnor mal. Albumin (test code = 3.7 See_Comment [Autom ated message] 8265-7) The system [employer] generated this result transmitted ref erence range: 3.6 - 5. 4 gm/dL. The refe rence range was not u sed to interpret this result as normal/abnor mal. Alpha 1 Globulin (test 0.3 See_Comment [Aut omated message] code = 2865-4) The system [facility] generated this result transmitted ref erence range: 0.2 - 0. 4 gm/dL. The refe rence range was not u sed to interpret this result as normal/abnor mal. Alpha 2 Globulin (test 0.8 See_Comment [Aut omated message] code = 2868-8) The system [facility] generated this result transmitted ref erence range: 0.5 - 1. 0 gm/dL. The refe rence range was not u sed to interpret this result as normal/abnor mal. Beta Globulin (test code 0.6 See_Comment [A utomated message] = 2871-2) The system [facility] generated this result transmitted ref erence range: 0.5 - 1. 1 gm/dL. The refe rence range was not u sed to interpret this result as normal/abnor mal. Gamma Globulin (test 0.7 See_Comment [Autom ated message] code = 2874-6) The system [facility] generated this result transmitted ref erence range: 0.7 - 1. 6 gm/dL. The refe rence range was not u sed to interpret this result as normal/abnor mal. Lab Interpretation (test Abnormal code = 10278-7) MD PantojaElectrolyte [id number] 18:15:01 Test Item Value Reference Range Interpretation Comments Sodium Lvl (test code = 144 See_Comment [Au tomated message] 9627) The system [facility] generated this result transmitted ref erence range: 136 - 14 5 mEq/L. The refe rence range was not u sed to interpret this result as normal/abnor mal. Potassium Lvl (test code 4.3 See_Comment [A utomated message] = 6854) The system [facility] generated this result transmitted ref erence range: 3.5 - 5. 1 mEq/L. The refe rence range was not u sed to interpret this result as normal/abnor mal. Chloride (test code = 109 See_Comment H [Auto mated message] 7739) The system [facility] generated this result transmitted ref erence range: 98 - 107 mEq/L. The refe rence range was not u sed to interpret this result as normal/abnor mal. CO2 (test code = 5227) 29 See_Comment [Aut omated message] The system [employer] generated this result transmitted ref erence range: 22 - 29 mEq/L. The reference r regina was not used to interpret this result as normal/abnor mal. Anion Gap (test code = 22 See_Comment H [Aut omated message] 0349) The system [employer] generated this result transmitted ref erence range: 4 - 14 m Eq/L. The reference r regina was not used to interpret this result as normal/abnor mal. Lab Interpretation (test Abnormal code = 81973-8) MD PantojaFractionated [id number] 18:13:18 Test Item Value Reference Range Interpretation Comments Bili Total (test 0.6 mg/dL See_Comment Indocyanine Green (ICG) code = 5096) may cause false ly elevated biliru bin results. Total and direct bilirubin must not be measured from s amples containing indo cyanine green. False el evation of total bilirubin can be seen in patient s with IgG concentrations above 28 g/L. [Automate d message] The system [employer] generated this result transmitted ref erence range: <=1.2. T he reference range was not used to interpr et this result as normal/abnormal . Bili Direct (test <0.2 See_Comment Indocyanin e Green (ICG) code = 5094) may cause false ly elevated biliru bin results. Total and direct bilirubin must not be measured from s amples containing indo cyanine green. [Automat ed message] The sy stem which generated this result transmitted ref erence range: <=0.3 mg /dL. The reference range was not used to interpr et this result as normal/abnormal . Bili Indirect (test See Note 0.0-0.9 Unable t o calculate code = 5095) Indirect Biliru bin result due to some par ameters are outside rep ortable range MD PantojaUric [id number] 18:13:17 Test Item Value Reference Range Interpretation Comments Uric Acid (test code = 7955) 8.5 mg/dL 3.4-7.0 H Lab Interpretation (test code = Abnormal 08473-1) MD PantojaTotal [id number] 18:13:15 Test Item Value Reference Range Interpretation Comments Total Protein (test code = 7649) 6.1 g/dL 6.4-8.3 L Lab Interpretation (test code = Abnormal 67504-3) MD PantojaGlomerular Filtration [id number] 18:13:14 Test Item Value Reference Range Interpretation Comments eGFR-AA (test code = 39 See_Comment L Normal eGFR: >= 60 8062) mL/min/1.73 m2N ote: The eGFR is masood culated using the CKD-E PI equation. The e GFR declines with a ge. eGFR <60 mL/min /1.73 m2 is considere d as "decreased". Th is equation should only be used for pat ients 18 and older. According to th e National Kidney Foundation's dney Disease Outcome Quality Initiat vesna (KDOQI) classif ication and 2012 Kidney Disease Improvi ng Global Outcomes (KDIGO) Clinica l Practice Guidel ine, the stage of CK D should be categ orized based on estima zain GFR. Stage Desc ription GFR mL/mi n/1.73 m21 Normal or h igh GFR >=902 Mildly decreased GFR 60-893a M ildly to moderately decreased GFR 45-593b Moderat ata to severely decrea sed GFR 30-444 Kayli rely decreased GFR 15-295 Kidney f ailure <15 [Auto mated message] The sy stem which generated this result transmit zain reference range : >=60 mL/min/1.73 sq. m. The reference range was not used to int erpret this result as normal/abnormal . eGFR-JOAQUIN (test code = 33 See_Comment L Normal eGFR: >= 60 8063) mL/min/1.73 m2N ote: The eGFR is masood culated using the CKD-E PI equation. The e GFR declines with a ge. eGFR <60 mL/min /1.73 m2 is considere d as "decreased". Th is equation should only be used for pat ients 18 and older. According to th e National Kidney [employer]'s dney Disease Outcome Quality Initiat vesna (KDOQI) classif ication and 2012 Kidney Disease Improvi ng Global Outcomes (KDIGO) Clinica l Practice Guidel ine, the stage of CK D should be categ orized based on estima zain GFR. Stage Desc ription GFR mL/mi n/1.73 m21 Normal or h igh GFR >=902 Mildly decreased GFR 60-893a M ildly to moderately decreased GFR 45-593b Moderat ata to severely decrea sed GFR 30-444 Kayli rely decreased GFR 15-295 Kidney f ailure <15 [Auto mated message] The sy stem which generated this result transmit zain reference range : >=60 mL/min/1.73 sq. m. The reference range was not used to int erpret this result as normal/abnormal . Lab Interpretation Abnormal (test code = 20634-4) MD PantojaPhosphorus [id number] 18:13:13 Test Item Value Reference Range Interpretation Comments Phosphorus (test code = 6817) 2.9 mg/dL 2.5-4.5 MD PantojaMagnesium [id number] 18:13:12 Test Item Value Reference Range Interpretation Comments Magnesium (test code = 6359) 1.6 mg/dL 1.6-2.6 MD PantojaCalcium [id number] 18:13:11 Test Item Value Reference Range Interpretation Comments Calcium Lvl (test code = 5258) 8.8 mg/dL 8.4-10.2 MD [id number] 18:13:10 Test Item Value Reference Range Interpretation Comments LDH (test code = 6111) 335 U/L 135-225 H Resul ts greater than 1651 U/L may no t be reliable due to matrix effect w ith extended diluti on as it exceeds the contract serviceman s recommended l imit. Caution should be exercised when interpreting yañez ch values and done in conjunction wit h clinical contex t. Lab Interpretation (test Abnormal code = 04287-3) MD [id number] 18:13:09 Test Item Value Reference Range Interpretation Comments ALT (test code = 20 U/L See_Comment [Automated message] The 2931) system which ge nerated this result transmit zain reference range : <=41. The reference range was not used to interpr et this result as lois l/abnormal. MD PantojaAlkaline [id number] 18:13:08 Test Item Value Reference Range Interpretation Comments Alk Phos (test code = 4768) 47 U/L 40-129 MD [id number] 18:13:06 Test Item Value Reference Range Interpretation Comments BUN (test code = 5055) 35 mg/dL 6-23 H Lab Interpretation (test code = Abnormal 83863-8) MD PantojaAlbumin [id number] 18:13:05 Test Item Value Reference Range Interpretation Comments Albumin Lvl (test code 3.9 See_Comment [Aut omated message] The = 2264) system which ge nerated this result tra nsmitted reference range : 3.5 - 5.2 gm/dL. The refe rence range was not used to interpret this result as normal/abnormal . MD PantojaGlucose [id number] 18:13:04 Test Item Value Reference Range Interpretation Comments Glucose Level (test code 178 mg/dL 70-99 H Eff ective 11/07/15, = 5699) the glucose reference inter vals have been updat ed based on [place] an Diabetes Associ ation guidelines (Standards of Medical Care in Diabetes 2016. Diabetes Care 2 016; 39: S13-S22).Fa sting blood glucose:Normal: 70 99 mg/dLImpaire d fasting glucose (increased risk for diabetes or pre-diabetes): 100 125 mg/dLDiabet es mellitus: >/=1 26 mg/dL Random bl ood glucose:Normal: 70 199 mg/dLNote: Random glucose >100 mg/dL is associ ated with increased risk for diabetes Lab Interpretation (test Abnormal code = 02146-8) MD PantojaAspartate [id number] 18:13:03 Test Item Value Reference Range Interpretation Comments AST (test code = 17 U/L See_Comment [Automated message] The 5717) system which ge nerated this result transmit zain reference range : <=40. The reference range was not used to interpr et this result as lois l/abnormal. MD Pantoja.Serum [id number] 18:13:01 Test Item Value Reference Range Interpretation Comments Creatinine (test code = 5399) 2.29 mg/dL 0.67-1.17 H Lab Interpretation (test code = Abnormal 25445-4) MD PantojaUmaxanbfTyolpwgbbfle1471-17-61 16:40:00 Test Item Value Reference Range Interpretation Comments Neutrophil % (test code = 75.8 % 42.0-66.0 H 6491) Lymphocyte % (test code = 14.1 % 24.0-44.0 L 6194) Monocyte % (test code = 7.0 % 2.0-7.0 6422) Eosinophil % (test code = 1.5 % 1.0-4.0 5520) Basophil % (test code = 0.8 % 0.0-1.0 5068) IGRE % (test code = 5958) 0.8 % 0.0-0.4 H IG RE % count includes Metamyelocytes, Myelocytes, and Promyelocytes. Neutrophil Abs (test code 5.53 K/uL 1.70-7.30 = 6492) Lymphocyte Abs (test code 1.03 K/uL 1.00-4.80 = 6195) Monocyte Abs (test code = 0.51 K/uL 0.08-0.70 6423) Eosinophil Abs (test code 0.11 K/uL 0.04-0.40 = 5521) Basophil Abs (test code = 0.06 K/uL 0.00-0.10 5069) IG Abs (test code = 5954) 0.06 K/uL 0.00-0.04 H Lab Interpretation (test Abnormal code = 25780-2) MD Pantoja.[id number] 16:39:55 Test Item Value Reference Range Interpretation Comments WBC (test code = 8034) 7.3 K/uL 4.0-11.0 RBC (test code = 6932) 2.87 See_Comment L [Aut omated message] The system [employer] generated this result transmitted ref erence range: 4.50 - 6 .00 M/uL. The refer ence range was not u sed to interpret this result as normal/abnor mal. Hgb (test code = 5898) 8.5 See_Comment L [Aut omated message] The system [employer] generated this result transmitted ref erence range: 14.0 - 1 8.0 gm/dL. The refe rence range was not u sed to interpret this result as normal/abnor mal. Hct (test code = 5860) 25.3 % 40.0-54.0 L MCV (test code = 6222) 88 fL 82-98 MCH (test code = 6220) 29.6 pg 27.0-31.0 MCHC (test code = 6221) 33.6 See_Comment [Au tomated message] The system [employer] generated this result transmitted ref erence range: 31.0 - 3 6.0 gm/dL. The refe rence range was not u sed to interpret this result as normal/abnor mal. RDW-SD (test code = 46.3 fL 35.1-46.3 6972) RDW-CV (test code = 14.6 % 12.0-15.5 6971) Platelet count (test 128 K/uL 140-440 L code = 6832) MPV (test code = 6282) 10.2 fL 4.0-10.4 INRBC (test code = 0.0 % See_Comment The INRBC (instrument 5974) NRBC) value ref lects the enumeration of nucleated red b lood cells contained in a 200uL sampleof whole blood analyzed by the instrument. Thi s value maydiffer from the NRBC value repo rted in a manual differential,wh ich is based on a 100 cell differential. [Automated mess age] The system [employer] generated this result transmitted ref erence range: <=0.0. T he reference range was not used to int erpret this result as normal/abnormal . Lab Interpretation Abnormal (test code = 26924-2) MD Franks [place]/Free Lambda [id number] 17:55:03 Test Item Value Reference Range Interpretation Comments FKap/FLam RT (test code = 5566) 0.94 0.26-1.65 MD Franks Lambda Light [id number] 17:55:02 Test Item Value Reference Range Interpretation Comments Free Lambda (test code = 5630) 40.97 mg/L 5.71-26.30 H Lab Interpretation (test code = Abnormal 26181-1) MD Franks [place] Light [id number] 17:55:01 Test Item Value Reference Range Interpretation Comments Free [place] (test code = 5629) 38.56 mg/L 3.30-19.40 H Lab Interpretation (test code = Abnormal 53763-5) MD PantojaBeta 2 [id number] 17:55:00 Test Item Value Reference Range Interpretation Comments Beta2 Microglob (test code = 5090) 7.2 mg/L 0.8-2.3 H Lab Interpretation (test code = Abnormal 70064-3) MD PantojaZqtsvrggNkN0330-26-25 17:54:59 Test Item Value Reference Range Interpretation Comments IgM (test code = 6023) 115 mg/dL 35-242 MD [id number] 17:54:58 Test Item Value Reference Range Interpretation Comments IgG (test code = 6001) 668 mg/dL 610-1616 MD PantojaJtbhnsehOkH2331-45-27 17:54:57 Test Item Value Reference Range Interpretation Comments IgA (test code = 5992) 56 mg/dL 85-499 L Lab Interpretation (test code = Abnormal 42842-3) MD PantojaWisjlwup84at Urine Total [id number] 17:22:07 Test Item Value Reference Range Interpretation Comments UTP (test code = 289 mg/dL Caution is advised when 7921) interpreting va lues greater than 55 5 mg/dL.Results r equiring extended diluti on beyond the contract serviceman's recommendedlimi t may not dilute line sarabjit due to potential ma trix effect.Correlat ion with clinical contex t is recommended. UTP 24 (test code = 4335 See_Comment H [Automa zain message] 7948) The system [employer] generated this result transmitted ref erence range: <=149 mg /24hr. The reference r regina was not used to int erpret this result as normal/abnormal . Lab Interpretation Abnormal (test code = 13848-8) MD PantojaTotal [id number] 15:39:44 Test Item Value Reference Range Interpretation Comments Total Volume (test 1500 See_Comment Collectio n date/time code = 7650) has been modifi ed to: 09:00 :00. Previous collec tion date/time: 09:33:00.Correc zain from 1500 mL/24 h on 08/24/20 10:39: 44 CDT by Nely Lemus. [Automated mess age] The system [employer] generated this result transmitted ref erence range: 1,200 - 1,500 mL/24 h. The re ference range was not u sed to interpret this result as normal/abnor mal. Hrs Collected (test 24 Collecti on date/time code = 5928) has been modifi ed to: 09:00 :00. Previous collec tion date/time: 09:33:00.Correc zain from 24 [NA] on 08/24/20 10:39: 44 CDT by Nely Lemus. Start Date (test code 08/23/2020 Collec tion date/time = 7382) has been modifi ed to: 09:00 :00. Previous collec tion date/time: 09:33:00.Correc zain from 08/23/20 0 :00:00 CDT [NA] on 10:39:44 CDT by Violetta Lemus. End Date (test code = 08/24/2020 Collec tion date/time 5510) has been modifi ed to: 09:00 :00. Previous collec tion date/time: 09:33:00.Correc zain from 08/24/20 0 :00:00 CDT [NA] on 10:39:44 CDT by Violetta Lemus. U24 Comment (test 1 Collection date/time code = 8547) has been modifi ed to: 09:00 :00. Previous collec tion date/time: 09:33:00.Correc zain from 1 [NA] on 08/24/20 10:39: 44 CDT by Nely Lemus. MD PantojaCornelio Interpretation [id number] 21:30:22 Test Item Value Reference Range Interpretation Comments TMP XM Interp RBC units (test code = crossmatched for 7566) transfusion appear ADR DOLLY CHERRY acceptable. ROGER JACOBSON MD - [id number] by: MD Dimple LIMON [id number] Date/Time: 08.11 16:30 PM CDT Transcribed Tyree e/Time: 08.21.2020 16:3 0 PM CDTElectronical ly Signed By: NEWTON DARLING MD - 143 02 on 08.21.2020 16:3 0 PM MD Cole RBC:ATC-SCT, 1 [id number] 21:23:11 Test Item Value Reference Range Interpretation Comments PRBC Product Ready 1 Red Blood Cells (test code = Available - 73716-3) Order Form 03 when ready for product issue. Unit Number (test [id number] code = 7002) Product Code (test [id number] code = 7003) Unit Expiration [id number] (test code = 243856) Unit Blood Type 5100 (test code = 7004) Product Code Text RBCIRLR Aph ACDA AS3 (test code = Bag 2 435305) Crossmatch [id number] Expiration Date (test code = 602756) Unit Irradiated IRRADIATED (test code = 687266) Dispense Status ISSUED (test code = 7001) Unit Blood Type O Positive (test code = 7005) Product Production Superintendent Hydro .BPAM ____ Location (test ___ code = 332206) ___ ____ MD PantojaNiko Product Ready for Pick [id number] 19:35:59 Test Item Value Reference Range Interpretation Comments PRBC Product Ready B2 Blood Bank Product is ready for for Production Superintendent Hydro (test picker/puller on August 21, code = 653834) 2020 14:35:50 CDT. MD PantojaBlood Culture - [id number] 00:53:16 Test Item Value Reference Range Interpretation Comments Final Report (test No growth code = 8488) Path Review - Culture yield may be Bottle/Isolator affected by sample (test code = 8499) quality, prior treatment, and transportation conditions....The results have been reviewed and electronically signed by Pathologist:Martin Mckoy MD, PhD #[id number] MD [facility] Glucose [id number] 18:36:48 Test Item Value Reference Interpretation Comments Range POC Glucose (test 242 mg/dL 70-99 H RN Notifie dCapillary code = 75773-0) blood sample s, e.g. obtained by fingerstick, ma y have inaccurate resu lts in patients with decreased perip heral blood flow. Met hod description: Al l results are stevie sured using Electroch emistry test methodolog y. The glucose in the sample mixes with the reagents on the test strip. The reac tion produces an saqib ctric current. The am ount of current produce d is proportional to the glucose concent ration in the blood. PO Sample Type (test Capillary code = 9554) Performing Lab (test MDA [facility] code = 86872) [facility] MD Carmencita coker Clinical Lab, [address] [facility], [place], [place] [address]; Layer Up: Hanny Correa MD Lab Interpretation Abnormal (test code = 02565-4) MD PantojaBilirubin [id number] 07:28:28 Test Item Value Reference Range Interpretation Comments Bili Total (test 0.3 mg/dL See_Comment Indocyanine Green (ICG) code = 5096) may cause false ly elevated bilirubin resul ts. Total and direct bili wu must not be measured from samples contain ing indocyanine gre en. False elevation of to naresh bilirubin can b e seen in patients with I gG concentrations above 28 g/L. [Automate d message] The system [employer] generated this result tra nsmitted reference range : <=1.2. The reference r regina was not used to int erpret this result as lois l/abnormal. MD PantojaUrine [id number] 01:29:35 Test Item Value Reference Range Interpretation Comments Final Report (test No growth code = 8488) Path Review - Urine Culture yield may be (test code = 8483) affected by sample quality, prior treatment, and transportation conditions....The results have been reviewed and electronically signed by Pathologist:Martin Mckoy MD, PhD #[id number] MD PantojaCOVID-19 (SARS-CoV-2) PCR-Asymptomatic [id number] 07:24:28 Test Item Value Reference Range Interpretation Comments COVID19 (SARS Not Detected Not Detected This test is a CoV-2) Result qualitative (test code = reverse-transcr iptase 58689-0) polymerase bhavya n reaction (RT-PC R) developed for t he [employer] JONATHAN 680 0 system and inte nded for the detecti on of SARS CoV-2 RNA in human nasophary ngeal specimens from patients who me et COVID-19 clinic al and/or epidemiological criteria. This assay has been approv ed by the FDA for use only under Emergency Use Authorization ( EUA) in laboratories that have been CLIA-certified to perform moderate-comple xity and high-comple xity tests. The performance characteristics of this assay were verified by the Microbiology Laboratory at [facility], CLIA Accreditation # : [id number] and CAP Accreditation # : [id number]. Result s must be interpreted within the context of all relevant clinic al and laboratory find ings and should not form the sole basis for a diagnosis or treatment decis ion. "Presumptive Positive" resul ts are due to partial amplification o f SARS-CoV-2 targ ets and indicates l ow amounts of viru s present in the specimen at or near the limit of detection. Regardless, individuals wit h "Presumptive Positive" resul ts should be manag ed per institutional guidelines as individuals pos itive for SARS-CoV-2 virus, including use o f appropriate inf ection control protoco ls. Internal contro ls are included to ass ess for possible amplification inhibitors. If inhibition is detected, testi ng is repeated and if inhibition is confirmed the specimen is res ulted as "Invalid". W hen an "Invalid" resul t occur, it is recommended to wait 3 days before submitting a ne w specimen for te sting if clinically indicated. COVID19 SARS WORSHIP LEADER Swab Source (test code = 44340) COVID19 SARS Inpatient Indication (test Admission code = 84334) HUMA (test code = "Hematology 7 day HUMA) interval retest per Infectious Disease recommendations". MD [facility] Lhpbiqjp0893-04-17 02:47:37 Test Item Value Reference Range Interpretation Comments POC Critical Comment See Note Test pe rformer notified (test code = 8955) Ordering Licensed Provider and /o r designee of POC Glucose Screen critical Results.. MD PantojaUrinalysis with [id number] 20:08:36 Test Item Value Reference Interpretation Comments Range UA WBC (test code = 2 See_Comment [Automa zain 7904) message] The system which generated this result transmitted reference range : 0 - 2 /HPF. The reference range was not used to interpret this result as normal/abnormal . UA RBC (test code = 3 See_Comment H [Automa zain 7891) message] The system which generated this result transmitted reference range : 0 - 2 /HPF. The reference range was not used to interpret this result as normal/abnormal . UA Mucous (test code NOT SEEN Not Seen-Trace = 7887) /HPF UA Bacteria (test NOT SEEN NOT SEEN /HPF code = 7870) UA Squam Epi (test OCC None-Occasiona code = 7896) l /HPF UA Trans Epi (test OCC NOT SEEN /HPF A code = 7898) UA Hyal Cast (test 3 See_Comment H [Automat ed code = 7883) message] The system which generated this result transmitted reference range : 0 - 2 /LPF. The reference range was not used to interpret this result as normal/abnormal . HUMA (test code = Some reporting HUMA) parameters within the Urinalysis test have changed due to the implementation of new instrumentation in the [facility], allowing greater sensitivity of measurement. Urinalysis results reported by the [facility] using existing instrumentation, as well as Urinalysis testing performed manually or by backup methodology at the [facility] will remain relatively unchanged. New reporting parameters and units will now be reported for all campuses. Lab Interpretation Abnormal (test code = 83181-2) MD PantojaUrinalysis w/Microscopic if [id number] 19:39:48 Test Item Value Reference Range Interpretation Comments UA Color (test code = 7877) Yellow Yellow UA Appear (test code = 7868) Hazy Clear A UA Glucose (test code = 7881) NEG NEG mg/dL UA Bili (test code = 7871) NEG NEG UA Ketones (test code = 7884) Trace NEG mg/dL A UA Spec Grav (test code = 7894) 1.015 1.003-1.035 UA Blood (test code = 7872) Small NEG A UA pH (test code = 7909) 5.0 5.0-9.0 UA Protein (test code = 7890) >=500 NEG mg/dL A UA Urobilinogen (test code = 7903) NEG NEG UA Nitrite (test code = 7888) NEG NEG UA Leuk Est (test code = 7886) NEG NEG Lab Interpretation (test code = Abnormal 18682-9) MD PantojaDifferential [id number] 10:11:10 Test Item Value Reference Range Interpretation Comments Diff Cancelled (test See Note Due to low WBC, the code = 8954) differential wi ll not be performed and i t is not possible to masood culate ANC. MD PantojaCrigkoqwVOPZTCIQMNFU2406-33-75 01:48:26David Bustamante RN 08/10/2020 8:55 PMPost Hemodialysis Note: Hemodialysis x 2.5 hours completed. Tolerated treatment well with 1 liter net UF. [place] pulled and manual pressure applied x 10 minutes to each site. Hemostasis achieved. Report given to primary care nurse. The following Physicians orders were reviewed: Orders Is there an order? Y/N/ NA Hand offreceivedY/N/NA Hand off given Y/N/NA Comments Pulmonary Function Test (PFT) n y VRE culture n y Enteral Feeding (EF) n y Daily w eights y y Isolation status n y *Y=Yes N=No NA=Not Applicable Is there Midodrine Order?Y/N Midodrine Given within 60 min pre HDY/N/NA Midodrine given byDialysis RNY/N/NA MidodrineRouteof Admin Hand off receivedY/N/NA Hand off givenY/N/NA POY/N/NA EFY/N/NA n n na na na y*Y= Yes N=No NA=Not Applicable Patient Dialysis Access and Lines Y =YesN= No Comments Visible at alltimes during Hemodialysis treatment Chavez PantojaX-ray Chest 2 Views 2020-08-10 20:04:07 Satisfactory location of central venous access catheter. No features of pneumonia. Interface, Radiology Results In - 08/10/2020 3:06 PM CDT FULL RESULT:Examination: XR CHEST 2 VW, 08/10/2020 2:46 PMClinical History: MyelomaIndication: FeverComparison: 07/20/2020Technique: Posteroanterior, lateral and dual-energy radiographs of the chest.Findings:Left-sided central venous access catheter tip is projected over superior vena cava. Poor inspiration. Visualized lungs are clear. No effusion or pneumothorax. Normal cardiac, mediastinal and hilarcontours.IMPRESSION:Satisfactory location of central venous access catheter. No features of pneumonia.MD JackV Quant, [id number] 12:26:13 Test Item Value Reference Range Interpretation Comments BKV Not Detected Not Detected Assay Range: 5 00 copies/mL to Urine-Virac copies/mL 1.00E+10 copies /mLThis test was or (test developed and i ts performance code = characteristics determined by 4990) [facility]. It has not been cleared or approvedby the U.S. Food and D rug Administration. Results should be used inconju nction with clinical findin gs, and should not form the so lebasis for a diagnosis or tr eatment decision. Performe d At:[facility] [address] [place] [address]Xomiwvstlj Director: Kofi Pratt Ph.D., BCL D (ABB)CLIA#: [id number] e: MD PantojaVRRebeca [id number] 20:03:05 Test Item Value Reference Range Interpretation Comments Final Report (test No Vancomycin resistant code = 8488) Enterococci isolated Path Review - VRE The results have been (test code = 8485) reviewed and electronically signed by Pathologist:Rosendo Scott MD, PhD #[id number] MD PantojaPartial Thromboplastin [id number] 08:05:10 Test Item Value Reference Range Interpretation Comments PTT (test code = 36.0 See_Comment [Automated message] The 9141) system which ge nerated this result transmit zain reference range : 24.7 - 36.8 second(s). The reference range was not used to interpr et this result as lois l/abnormal. MD PantojaProthrombin [id number] 08:05:09 Test Item Value Reference Range Interpretation Comments PT (test code = 6746) 13.4 See_Comment [Auto mated message] The system which ge nerated this result transmit zain reference range : 11.5 - 13.9 second(s). The reference range was not used to interpr et this result as lois l/abnormal. INR (test code = 1.10 0.90-1.10 5973) MD PantojaX-ray Abdomen 1 View [id number] 12:10:44No plain film evidence of bowel obstruction, if clinical concern persists, follow-up with CT exam.Interface, Radiology Results In - 08/07/2020 7:12 AM CDT FULL RESULT:Examination: XR ABDOMEN 1 VW PORTABLE on 08/07/2020 12:48 AMClinical History: MyelomaIndication: DistentionComparison: None.Technique: XR ABDOMEN 1 VW PORTABLEFindings: The ced l gas pattern is nonobstructive. Lung bases are clear. No suspicious calcifications detected.IMPRESSION:No plain film evidence of bowel obstruction, if clinical concern persists, follow-up with CT exam.MD PantojaVitamin D 25OH 2020-08-06 08:09:05 Test Item Value Reference Range Interpretation Comments Vitamin D 25 OH (test 25 ng/mL 30-100 L Refere nce Range: code = 8018) Deficiency: <10 ng/mLInsufficie ncy: 10-29 ng/mLSufficienc y: 30-100 ng/mLPotential toxicity: >10 0 ng/mL Lab Interpretation (test Abnormal code = 52123-0) MD PantojaPTH [id number] 07:50:24 Test Item Value Reference Range Interpretation Comments PTH Intact (test code = 6769) 419.4 pg/mL 15.0-65.0 H Lab Interpretation (test code = Abnormal 32437-7) MD PantojaStalekslity Bone Marrow [id number] 04:11:27 Test Item Value Reference Range Interpretation Comments Final Report (test No Aerobic Organisms code = 8488) isolated at 14 days. No Anaerobic Organisms isolated at 14 days. HUMA (test code = HUMA) PROCESSING STEP: HARVEST/CRYOUID# [id number] MD PantojaXdkafwseFbkwksqhn4003-45-70 22:39:14 Test Item Value Reference Range Interpretation Comments Potassium Lvl (test 4.9 See_Comment [Automa zain message] The code = 6854) system which ge nerated this result tra nsmitted reference range : 3.5 - 5.1 mEq/L. The reference range was not u sed to interpret this result as normal/abnormal . MD Bundypatitis B Surface Ag w/[id number] 17:47:32 Test Item Value Reference Range Interpretation Comments Hep Bs Ag-Palis[place] Negative Negative Test Perform ed by:Mateo (test code = [facility] [address] [place], [place] [address]Qfw Director: Devante Troncoso M.D. Ph. D.; CLIA# [id number] MD PantojaNwnqgqbbJPCCNELGNFFW2863-60-65 17:34:02Santana Can RN 08/01/2020 12:38 PMPOST HD NOTES UF Goal: 4L as toleratedUF Removed: 2.5 LTreatment time: 3.25 hours - AVF bleeding controlled.-Treatment terminated early per patient request due to not feeling well, hypotensive, nauseated, PRN compazine 5mg IV was given.- VS stable, AAO x4- Report given to primary RN. Santana Can RN The following Physicians orders were reviewed: OrdersIs there an order? Y/N/ NA Hand offreceivedY/N/NA Hand off given Y/N/NA Comments Pulmonary Function Test (PFT) n y VRE culture n y Enteral Feeding (EF) n y Daily weights y y Isolation status n y *Y=Yes N=No NA=Not ApplicableIs there Midodrine Order?Y/N Midodrine Given within 60 min pre HDY/N/NA Midodrine given byDialysis RNY/N/NA MidodrineRouteof Admin Hand off receivedY/N/NA Hand off givenY/N/NA POY/N/NA EFY/N/NA n na na na na y *Y= Yes N=No NA=Not Applicable Patient Dialysis Access and Lines Y =YesN= No Comments Visible at all times during Hemodialysis treatment yMD AndersonFerritin [id number] 07:06:08 Test Item Value Reference Range Interpretation Comments Ferritin Lvl (test code = 5608) 471 ng/mL 30-400 H Lab Interpretation (test code = Abnormal 99319-0) MD [id number] 07:06:07 Test Item Value Reference Range Interpretation Comments CRP (test code = 5.92 mg/L Reference r doreenes for HS CRP 5235) assay are as fo llows: Reference range s when used to assess cardi ac risk: <1.00 mg/L Low cardiovascular risk 1.00-3.00 mg/L Average cardiovascular risk >3.00 mg/L High cardi ovascular risk.Reference ranges when used to assess inflammatory responses: Les s than or equal to 10.00 mg/L. MD PantojaNT-Pro BNP (In-House)2020-07-31 06:54:07 Test Item Value Reference Range Interpretation Comments NT ProBNP (test code = 518 pg/mL See_Comment H [Aut omated message] 2376) The system [employer] generated this result transmit zain reference range : <=125. The refe rence range was not u sed to interpret th is result as normal/abnormal . Lab Interpretation (test Abnormal code = 76358-2) MD PantojaHepatitis B Surface [id number] 01:17:41 Test Item Value Reference Range Interpretation Comments HBsAg Received (test See Note HBsAg w as sent to a code = 68887) reference lab for testing. Expec t results on Hepa titis B Surface Antigen w/ Confirm within 96 hours. MD PantojaEtypvkseESYGHWVDPFRB8484-32-95 01:10:35Santana Can RN 07/30/2020 8:12 PMPOST HD NOTES UF Goal: 3-4LUF Removed: 3.5LTreatment time: 4 hours- AVF bleeding controlled.-Treatment well tolerated.- VS stable, no problems occurred throughout the procedure.- Report given to primary RN The following Physicians orders were reviewed: Orders Is there an order? Y/N/ NA Hand offreceivedY/N/NA Hand off given Y/N/NA Comments Pulmonary Function Test (PFT) n y VRE culture n y Enteral Feeding (EF) n y Daily weights y y Isolation status n y *Y=Yes N=No NA=Not ApplicableIs there Midodrine Order?Y/N Midodrine Given within 60 min pre HDY/N/NA Midodrine given byDialysis RNY/N/NA MidodrineRouteof Admin Hand off receivedY/N/NA Hand off givenY/N/NA POY/N/NA EFY/N/NA n n na na na y *Y= Yes N=No NA=Not Applicable Patient Dialysis Access and Lines Y =YesN= No Comments Visible at all times during Hemodialysis treatment yMD Kit Exchange Vascular Access Device: Non-Tunneled [id number] 16:20:00Uday Butler NP 07/21/2020 3:11 PMProcedure: central venous catheter exchange Date/Time: 07/20/2020 11:29 AM Provider Information:Authorized by: Kristin Laurent NP Performed by: Uday Butler NP Patient Diagnosis:Preoperative Diagnosis: Light chain myelomaPost-operative diagnosis: unchanged Indications:Indications: different catheter needed Pre-Procedure Note:Patient examined pre-procedure: yesChart reviewed pre-procedure, including labs, images, history and physical exam: yesMedical railroad mechanic: no Pre-procedure patient condition: alert Anesthesia:Anesthesia: local infiltrationLocal anesthetic: lidocaine 1% without epinephrineAnesthetic total (ml): 5 Sedation:Patient sedated?: no Exchange Vas cular Access Device:Preparation: equipment and IV tubing prepared, patient ready for procedure, insertion site prepped and cleaned with aseptic technique and insertion site area shavedSkin prep agent dried: skin prep agent dried Sterile barriers: maximum sterile barriers were used: cap, mask, sterilegown, sterile gloves, and large sterile sheetHand hygiene: hand hygiene was performed prior to central venous catheter insertion Location: right subclavianPatient position: TrendelenburgCatheter type:triple lumenInstruments used: central venous catheter trayCatheter size in place: 12 FrCatheter ports clamped and cut: yesGuidewire easily inserted into catheter: yes Catheter removed without any resistance: yesGloves changed prior to new catheter placement: yesDilator inserted gently over guidewire: yesDilator with peel away sheath inserted over guidewire: yesNew catheter inserted through the same venous access: yesCatheter type: double lumenCatheter size inserted: 5 FrEstimated blood loss: minimalSpecimen(s) Removed:Specimen(s) removed: no specimen collected Post-procedure:Post-procedure: line sutured and dressing appliedAssessment: blood return through all ports, free fluid flow, placement verified by x-ray and no pneumothorax on x-rayPatient condition: patient tolerated the procedure well with no immediate complications, patient is warm and well perfused, patient does not report adverse symptoms and patient remained hemodynamically stable throughout the procedureResponsiveness: awake and alertPatient disposition: discharge to home Comments: Post procedure chest x ray shows left internal ju gular vein central venous catheter in good position for infusion with tip in the SVC.MD PantojaFlow Cytometry Specimen Collection -[id number] 14:30:16 Test Item Value Reference Range Interpretation Comments Flow Cytometry Yes Test performe d by:The (Received) (test code = [facility] 8319) [facility] CenterFlow Cyto metry [address] [place] [address]40 Beaker Ap Link (test NA code = 61736) MD Pantoja [id number] 14:29:56 Test Item Value Reference Range Interpretation Comments WBC Count, 26.3 K/uL Test performed CD34 Pnl (test by:The [facility] [place] code = 6690-2) [facility] Hospital[facility] [address] [place] [address] 86850 Viable Cells, 99.30 % Test performed Total cells by:The Universi ty (test code = [facility] 71067-3) [facility] Center[facility] [address] [place] [address] 49230 CD34+, Total 0.03 % Test performed cells (test by:The Universi ty code = 8125-7) [facility] HospitalFlow Cytometry [address] [place] [address] 65449 CD34+ 8 cells/mcL Test performed Absolute, by:[facility] Total cells [facility] (test code = [facility] 61132-7) CenterFlow Cytometry [address] [place] [address] 23678 HUMA (test code The Flow Cytometry = HUMA) Laboratory was unable to collect a statistically valid number of CD34+events (more than 100) for the sample. Therefore the precision and accuracy of this data cannotbe determined. This test was developed and its performance characteristics determined by [facility] Clinical Flow Cytometry Laboratory. It has not been cleared or approved by the US Food and Drug Administration. The FDA does not require this test go through premarket FDA review. This test is used for clinical purposes. It should not be regarded as investigational or for research. This laboratory is certified under the Clinical Laboratory Improvement Amendment of 1988 (CLIA) as qualified to perform high complexity clinical laboratory testing. MD PantojaComplete PFT ([place], DLCO, LV)2020-07-16 00:00:00 Test Item Value Reference Range Interpretation Comments FVC (L) pre (test code = 3.401 L 3.744-5.407 L 9507) FEV1 (L) pre (test code 2.904 L 2.923-4.329 L = 9505) FEV1/FVC (%) pre (test 85.388 % 69.298-88.654 code = 9509) DLCO_SB ml/(min*mmHg) 19.677 See_Comment L [Auto mated message] (test code = 9515) The syste m which generated this result transmitted ref erence range: 23.261 - 39.848 ml/(min* mmHg). The reference r regina was not used to interpret this result as normal/abnor mal. DLCOc_SB ml/(min*mmHg) 23.770 See_Comment [Aut omated message] (test code = 9516) The syste m which generated this result transmitted ref erence range: 23.261 - 39.848 ml/(min* mmHg). The reference r regina was not used to interpret this result as normal/abnor mal. TLC (L) (test code = 5.101 L 5.192-7.495 L 9513) RV (L) (test code = 1.494 L 1.264-2.613 9514) RV/TLC (%) (test code = 29.288 % 22.138-40.102 9517) FVC (% pred) pre (test 74 % code = 9520) FEV1 (%pred) pre (test 80 % code = 9518) FEV1/FVC (% pred) pre 108 % (test code = 9522) TLC (% pred) (test code 80 % = 9526) RV (% pred) (test code = 77 % 9527) RV/TLC (% pred) (test 94 % code = 9528) DLCO_SB (% pred) (test 62 % code = 9529) DLCOc_SB (% pred) (test 75 % code = 9530) Lab Interpretation (test Abnormal code = 13104-7) MD PantojaCT Sinus without [id number] 09:52:52No evidence of acute sinusitis Interface, Radiology Results In - 07/13/2020 4:54 AM CDT FULL RESULT:Examination: CT SINUS WO CONTRAST on 07/12/2020 9:26 AMClinical History: Multiple myelomaIndication: screen for sinusitis prior to sctComparison: Head CT from 12/27/2018.Technique: Non contrast CT sinus was obtained.Findings: Slightly smaller retention cysts in the floor of the right maxillary sinus and minimal left maxillary sinus mild mucosal thickening, and small polyps in the anterior left sphenoid sinus are seen. No fluid level, no bony erosion or dehiscence. Bilateral ostiomeatal units are patent. Ventral skull base and lamina papyracea are intact. The visualized orbits, extra-sinus soft tissue and brain are unremarkable. The osseous structures demonstrate no suspicious lytic or blastic lesion.IMPRESSION:No evidence of acute sinusitisMD AndersonUrine Prot Electrophoresis Path Review 2020-07-12 20:04:55U ProE Path IntThe follow-up urine protein electrophoretic pattern is essentially similar to that ofthe serum protein electrophoresis. There is no definitive evidence of a Bence-Quigley protein peak.If a Bence-Quigley proteinuria is suspected clinically, serum free light chain and urine immunofixation studies are recommended. Comment: CLAUDIO GRIFFIN MD, PhD [id number] by: CLAUDIO GRIFFIN MD, PhD [id number] Date/Time: 07.12.2020 15:04 PM CDT Transcribed Date/Time: 07.12.2020 15:04 PM CDTElectronically Signed By: [place] [id number] on 07.12.2020 15:04 PM [facility] CENTERMD AndersonUrine ALONZO Path [id number] 20:04:54 Test Item Value Reference Range Interpretation Comments UIFE Path The follow-up urine Int (test protein code = immunofixation CLAUDIO HOLM MD, 7917) electrophoretic PhD 77617Tmv tated by: patterns obtained CLAUDIO Farfan MD, PhD [place] [address]Nefsvhb d antisera against IgG, Date/T tiff: 07.12.2020 IgA, IgM, bound and 15:04 PM CDT free [place] and Lambda Transc ribed Date/Time: light chain proteins 07.12.2 021 15:04 PM show no definitive CDTElectr onically evidence of a Signed By: MARJORIE BROOKS Bence-Quigley [place] [id number] on band. 07.12.2020 15:0 4 PM MD PantojaX-ray Chest 1 View [id number] 17:12:26 Allowing for hypoinflation central venous access catheter appears in appropriate location. Interface, Radiology Results In - 07/12/2020 12:14 PM CDTFormatting of this note might be different from theoriginal.FULL RESULT:Examination: XR CHEST 1 VW PORTABLE, 07/12/2020 12:04 PMClinical History: MyelomaIndication: Check Central Line placementComparison: 07/10/2020Technique: Single portable anteroposterior radiograph of the chest.Findings:Poor inspiration. There is increased cardiac size and bilateral perihilar airspace opacity which may reflect hypoinflation atelectasis. Infection or edema cannot be excluded.New left-sided central venous access catheter, tip is projected over the upper right atrium. No pneumothorax or definitive pleural fluid collection.IMPRESSION:Allowing for hypoinflation central venous access catheter appears in appropriate location.MD Pantoja Vascular Access [id number] 16:18:59This procedure requires no interpretation from the radiologist.MD PantojaInsert Vascular Access Device: Non-Tunneled [id number] 16:00:00MARIELLA Monroy 07/12/2020 12:18 PMProcedure: central venous catheter placement Date/Time: 07/12/2020 12:15 PM Provider Information:Performed by: Joi Lobo, PAAuthorized by: MARIELLA Villalobos Keyliner present: no Patient Diagnosis:Pre-operative diagnosis: Multiple MyelomaPost-operative diagnosis: unchanged Indications:Indications: vascular access and apheresis (Stem Cell transplant) Pre-Procedure Note:Patient examined pre-procedure: yesChart reviewed pre-procedure, including labs, images, history and physical exam: yesMedical railroad mechanic: railroad mechanic not needed Pre- procedure patient condition: alert Anesthesia:Anesthesia: local infiltrationLocal anesthetic: lidocaine 1% without epinephrineAnesthetic total (ml): 8 Sedation:Patient sedated?: yesSedation: see MAR for detailsVital signs: vital signs monitored during sedation Central Venous Catheter Placement:Preparation: equipment and IVtubing prepared, patient ready for procedure and insertion site prepped and cleaned with aseptic techniqueSkin prep agent dried: skin prep agent completely dried prior to procedureSterile barriers: maximum sterile barriers were used: cap, mask, sterile gown, sterile gloves, and large sterile sheetHandhygiene: hand hygiene performed prior to central venous catheter insertionLocation: left internal jugularSite selection rationale: Small non compressible right IJ, renal Insufficiency, Short term CVC Patient position: Trendelenburg and flatCatheter type: triple lumen (Bard TL Trialysis 12F, 18.5cm)Instruments used: central venous catheter trayPre- procedure: landmarks identifiedUltrasound guidance: yesSterile ultrasound techniques: sterile gel and probe cover used in ultrasound-guided central venous catheter insertionNeedle introduced into anesthetized area: yesSterile Seldinger technique used: Seldinger technique usedMicroIntroducer with sheath inserted: yesDrip test performed: yesDilator insertedgently over guidewire: yesDilator with peel away sheath inserted: noCatheter inserted: yesIV tubing attached to catheter: yesReverse Trendelenburg position discontinued: yes Each lumen evacuated of airand flushed with sterile saline: yesCatheter size: 12 FrNumber of attempts: 1Successful placement: yesEstimated blood loss: minimal Post-procedure:Post-procedure: line sutured and dressing appliedAssessment: blood return through all ports, free fluid flow, placement verified by x-ray and no pneumothorax on x-rayPatient condition: patient tolerated the procedure well with no immediate complications, patient does not report adverse symptoms, patient remained hemodynamically stable throughout the procedure and patient is warm and well perfusedResponsiveness: awake and alertPatient disposition: discharge to home Comments:Ultrasound demonstrated compressibility of the left internal jugular vein. With ultrasound guidance, we then accessed the selected vessel using the micropuncture needle. We kept a permanent record of the ultrasound-guided vessel puncture image.Post procedure chest x ray shows left internal jugular vein central venous catheter in good position for infusion with tip at upper aspectof the atrium.Okay to use CVC.MD PantojaProtein Electrophoresis Path [id number] 20:51:15SPE Path InterpThe follow-up serum protein electrophoretic pattern shows no definitive evidence of an M-protein peak.If a paraproteinemia is suspected clinically, serum protein immunofixation, serum immunoglobulin quantification, and urine Bence-Quigley protein studies are recommended. Comment: CLAUD[place] PhD [id number] by: CLAUDIO GRIFFIN MD, [id number] Date/Time: 07.11.2020 15:51 PM CDT Transcribed Date/Time: 07.11.2020 15:51 PM CDTElec tronically Signed By: [place] [id number] on 07.11.2020 15:51 PM [facility]OTTS[place]LEMD AndersonIFE Path [id number] 20:51:14 Test Item Value Reference Range Interpretation Comments ALONZO Path The follow-up serum Int (test protein code = immunofixation CLAUDIO HOLM MD, 5949) electrophoretic PhD 67765Ahv tated by: patterns obtained CLAUDIO Farfan MD, PhD [place] of [address]Wahnyan d antisera against IgG, Date/T tiff: 07.11.2020 IgA, IgM, bound [place] 15:51 PM CDT and bound Lambda Transcribed Date/Time: light chain proteins 07.11.2 021 15:51 PM show no definitive CDTElectr onically evidence of a Signed By: MARJORIE GRIFFIN MD, PhD 1 4036 on gammopathy. 07.11.2020 15:5 1 PM MD PantojaCMV Ab IgG+IgM Path [id number] 18:22:48CMV Panel PRNo anti-CMV antibodies are detected this time in this 46-year-old patient, in contrast to the positive IgG 18 months ago. This pattern may represent a decrease in titer due to lymphopenia and/or antineoplastic treatment.Reviewed and Electronically signed by Pathologist:Rosendo Scott MD, PhD #[id number] Comment: Test performed by an immunoassay intended for the qualitative detection of IgG andIgM antibodies to Cytomegalovirus (CMV) in human serum. When equivocal results are obtained, anotherspecimen should be xztghbhte51-02 days later. ROSENDO SCOTT MD, PhD - [id number] by: ROSENDO SCOTT MD, PhD - [id number] Date/Time: 07.11.2020 13:22 PM CDT Transcribed Date/Time: 07.11.2020 13:22 PM CDTElectronically Signed By: ROSENDO SCOTT MD, PhD - [id number] on 07.11.2020 13:22 PM [facility] IgG+[id number] 19:32:29 Test Item Value Reference Range Interpretation Comments CMV IgM Int (test code = 5219) Negative Negative CMV IgG Int (test code = 5217) Negative Negative [facility] [place]X[facility] Bone Survey [id number] 15:24:21No interval development of myelomatous lesions is detected.Interface, Radiology Results In - 07/10/2020 10:26 AM CDT FULL RESULT:Examination:XR BONE SURVEY COMPLETE, 07/10/2020 9:57 AM.Clinical History: Multiple myelomaIndication: restage myelomaComparison: Complete bone survey with long bones December 28, 2018Technique: Complete bone survey with long bones, 21 viewsFindings: No interval vertebral compression fractures.No suspicious lesions are visualized in the skull, humeri, radii, ulnas, ribs, pelvis, femora, tibias or fibulas. Bowel content projects over bilateral iliac wings.Severe degenerative narrowing of the L5/S1 disc space withassociated endplate sclerosis. Moderate bilateral facet joint arthropathy is also visualized at L5/S1.IMPRESSION:No interval development of myelomatous lesions is detected.MD Hernández Donor RPR Path [id number] 13:23:39 Test Item Value Reference Interpretation Comments Range TMP Donor RPR Path The Rapid Interpretation Plasma Reagin (test code = (RPR) assay is GARY NDO 100866) negative. If a MD [facility] - syphilis 52080Sdptvqjx b y: infection is JANAK CASTELLON MD - suspected, 42644Irulvgfv please perform Date/Time: a Treponemal 8:23 AM CDT specific Transcribed Tyree e/Time: screening 07.10.2020 8:23 AM assay. CDTElectronical ly Signed By: HOMERO ARVIZU MD - 1 2005 on 07.10.2020 8 :23 AM C MD Hernández DONOR ID PATH [id number] 13:23:38Donor ID Path InterpNo evidence of detectable Hepatitis B Surface Antigen.There is NO serologic evide nce of Hepatitis B virus core antibody.There is NO serologic evidence of Hepatitis C virus antibodyThere is NO serologic evidence of previous exposure to HIV-1 or HIV-2Patient plasma shows no evidence of HTLV-I/II antibodies. Please retest in 6 months if an exposure is suspected.Screening for Trypanosoma cruzi antibody (Chagas Disease) is Non-Reactive.Qualitative tube test (Sickledex) for the detection of Hemoglobin S is NEGATIVE. Comment: MD ZAINAB - [id number] by: JANAK ARVIZU MD - [id number] Date/Time: 07.10.2020 8:23 AM CDT Transcribed Date/Time: 07.10.2020 8:23 AM CDTElectronically Signed By: JANAK ARVIZU MD - [id number] on 07.10.2020 8:23 AM C [facility] KitP DONOR WNV PATH [id number] 13:23:37 Test Item Value Reference Range Interpretation Comments TMP Donor WNV West Nile Virus Interp (test by Nucleic Acid code = 9013) Testing is __JANAK ALMAGUER MD - Non-Reactive. 11161Kzcnxzla by: MD Dimple JACINTO [id number] D ate/Time: 07.10.2020 8:23 AM CDT Transcribed Tyree e/Time: 07.10.2020 8:23 AM CDTElectronical ly Signed By: [place] [address] on 8:23 AM C MD Hernández DONOR WALKER PATH [id number] 13:23:36 Test Item Value Reference Range Interpretation Comments TMP Donor Walker Non-Reactive Interp (test for HIV-1 and code = 9015) HCV RNA and HBV __JANAK GASTON MD - DNA by Nucleic 71041Qedrybji by: Acid Testing. MD Dimple DUONG [id number] D ate/Time: 07.10.2020 8:23 AM CDT Transcribed Tyree e/Time: 07.10.2020 8:23 AM CDTElectronical ly Signed By: MD Dimple OVIEDO MA on 8:23 AM C MD [facility] [id number] 07:21:02 Test Item Value Reference Range Interpretation Comments DONOR HBSAG (test Non Reactive Non Reactive Performed at: code = 8559) [facility] [address] [place] [address] DONOR HBCAB (test Non Reactive Non Reactive Performed at: code = 8560) [facility] [place] [address] DONOR HCV AB (test Non Reactive Non Reactive Performed at: code = 8561) [place] [address] DONOR HIV 1/2 AB Non Reactive Non Reactive Performed a t: (test code = 8563) [place] [place] [address] DONOR HTLV I/II AB Non Reactive Non Reactive Performed at: (test code = 8564) [place] [address] DONOR T. CRUZI AB Non Reactive Non Reactive Performed at: (test code = 8565) [place] [address] DONOR HIV-1/HCV/HBV Non Reactive Non Reactive Performe d at: BY WALKER (test code = [facility] 8566) [place] [address] DONOR WNV (test code Non Reactive Non Reactive Perform ed at: = 8567) [place] [address] DONOR SICKLEDEX (test Negative Negative Perfor med at: code = 8562) [place] [address] MD PantojaRapid Plasma Reagin (RPR) [Syphilis DONOR screening]2020-07-10 04:48:47 Test Item Value Reference Range Interpretation Comments Donor RPR (test code = 318711) Non Reactive Non Reactive MD PantojaEchocardiogram 2D [id number] 22:03:23 Test Item Value Reference Range Interpretation Comments EF (test code = 66 [id number]) PXN (test code Interface, Radiology Results = PXN) In - 07/09/2020 5:03 PM CDT Echocardiographic ReportInterpretation SummaryA complete two-dimensional transthoracic echocardiogram was performed (2D, M-mode, Spectral and color Doppler). Compared to prior study, there is no significant change.LV is dilated using volumetric criteria.LV ejection fraction calculated using the bi-plane method of disks is 66 %.The right ventricle is normal in size and function.Unable to estimate RVSP due to lack of TR visualization.There is no pericardial effusion.Left Ventricle:LV is dilated using volumetric criteria. LV ejection fraction calculated using the bi-plane method of disks is 66 %. No regional wall motion abnormalities noted.I WMSI = 1.00 % Normal = 100X - Cannot 1 - Normal 2 - 3 - Akinetic 4 - DyskineticInterpret Hypokinetic5 - Xhcrptlsmf5A imaginD volumes were not performed in this study.Cardiac Mechanics/Speckle Tracking Imaging:Normal global longitudinal peak systolic value. Strain Imaging was performed; GLPS avg = -20.7%.Diastology:Impaired LV relaxation pattern of diastolic dysfunction, Doppler suggests normal LA pressures.Right Ventricle:The right ventricle is normal in size and function. Normal RV systolic function using TAPSE criteria.Atria:Atria are normal in size.Mitral Valve:Mild thickening changes are noted. Nodular thickening changes in the posterior leaflet. There is trace mitral regurgitation.Tricuspid Valve:The tricuspid valve is not well visualized, but is grossly normal. Unable to estimate RVSP due to lack of TR visualization.Aortic Valve:The aortic valve is trileaflet. The aortic valve opens well.Pulmonic Valve:The pulmonic valve is not well visualized.Great Vessels:The aortic root is normal size. The inferior vena cava demonstrates normal size and normal respiratory variation.Pericardium/Pleural: There is no pericardial effusion.Preliminary ReviewerPreliminary Interpretation: Waleska Avalos MD.MMode/2D Measurements IVSd: 1.3 cm LVIDd: 5.4 cm LVIDs: 4.0 cm LVPWd: 1.3 cmFS: 25.3 % Ao root diam: 3.9 cm Ao root area: 12.1 cm2 LA dimension: 4.0 cmLVOT diam: 2.6 cm EDV(MOD-A4C): 201.9 ml ESV(MOD-A4C): 66.3 mlLVOT area: 5.5 cm2 EF(MOD-A4C): 67.1 %EDV(MOD-A2C): 157.5 mlESV(MOD-A2C): 59.1 ml EDV(MOD-bp): 182.6 mlEF(MOD-A2C): 62.5 % ESV(MOD-bp): 64.8 ml EF(MOD-bp): 64.5 %LAV(MOD-A2C): 61.8 ml EDV (MOD-bp) Index: 80.4 ml/m2LAV(MOD-A4C): 54.9 mlLAV(MOD-bp): 61.2 mlLAV(MOD-bp) Indexed: 26.9 ml/m2ESV (MOD-bp) Index: 28.5 ml/m2 TAPSE (>1.6): 2.7 cmDoppler Measurements MV E max yumiko: 114.2 cm/sec MV V2 max: 179.1 cm/secMV A max yumiko: 155.7 cm/sec MV max P.8 mmHgMV E/A: 0.73 MV V2 mean: 108.1 cm/sec MV mean P.2 mmHg MV V2 VTI: 36.3 cm MVA(VTI): 3.8 cm2MV P1/2t max yumiko: 114.8 cm/sec Ao V2 max: 122.3 cm/secMV P1/2t: 47.7 msec Ao max P.0 mmHgMVA(P1/2t): 4.6 cm2 Ao V2 mean: 75.7 cm/sec Ao mean P.7 mmHgMV dec slope: 705.3 cm/sec2 Ao V2 VTI: 20.3 cm CELINE(I,D): 6.8 cm2 CELINE(V,D): 6.4 cm2LV V1 max P.2 mmHg SV(LVOT): 137.3 mlLV V1 mean P.3 mmHgLV V1 max: 142.7 cm/secLV V1 mean: 82.4 cm/secLV V1 VTI: 25.0 cmPA V2 max: 122.9 cm/sec RAP systole: 3.0 mmHgPA max P.0 mmHgPA V2 mean: 79.9 cm/secPA mean P.9 mmHgPA V2 VTI: 24.6 cmAVA Index (I,D): 3.0 CELINE Index (V,D): 2.8Dimensionless Index: 1.2 E/e' (avg): 24.8E/e' (lat): 22.5 E/e' (sept): 27.7 MD PantojaCytogenetics Specimen Collection -Bone [id number] 18:09:49 Test Item Value Reference Range Interpretation Comments Ambrosiofarhan Cooper (test [id number] code = 28194) Cytogenetics Yes (Received) (test code = 8304) HUMA (test code = HUMA) Premedication type:->Sedation by anesthesiaHave labs been ordered today?->YesAspiration laterality:->Unilateral Biopsy laterality:->Unilateral Procedure type:->AspirateProcedur e type:->Biopsy MD Bhatia marrow aspiration w/ [id number] 15:00:00MARIELLA Simms 05/24/2020 10:46 AM Procedure: Bone marrow aspiration/biopsy Date/Time: 05/24/2020 10:28 AM Provider Information:Performed by: PATRICK Simmsuthorized by: MARIELLA Guido Keyliner present: yesAssistant: May Bernard railroad mechanic used?: railroad mechanic not needed Patient Diagnosis:Pre-procedure diagnosis: Light chain myelomaPost-procedure diagnosis: unchanged Indication:Indication: evaluation of disease status Anesthesia:Anesthesia: local infiltrationPatient anesthetized by: advanced practice providerLocal anesthetic: lidocaine 1% without epinephrineAnesthetic total (ml): 10Sedation:Patient sedated?: patient sedatedSedation type: please refer to anesthesia note for further detailsSedation: propofol and see MAR for detailsVital signs: vital signs monitored during sedation Aspirate Site(s):Laterality: leftSite location: posterior iliac crestInstrument(s) used: Jamshidi needleInstruments placed by: advanced practice provider Biopsy Site(s):Laterality: leftSite location: pos terior iliac crestInstrument(s) used: Jamshidi needleInstruments placed by: advanced practice provider Dressing:Dressing: compression bandage Post-Procedure Patient Assessment:Patient tolerance: wellNotes for future procedures: recommend IV/PO sedation for future procedures Estimated blood loss: noneCo mplications/Observations: no complications Discharge/Disposition:Discharge instructions: verbal, printed discharge instructions given to patient and patient verbalized understandingPatient discharged to: discharge to caregiverDisposition mode: wheelchair Sample Disposition:Testing performed: flow cytometry and cytogeneticsResearch samples(s): yesProtocol #: [id number] volume obtained (mL) - left: 18Visual assessment for specimen adequacy - left: particlesVisual assessment for specimen adequacy - left: 0.8Specimen integrity - left: whole (very soft)MD PantojaPeripheral Smear for Bone [id number] 13:13:52 Test Item Value Reference Range Interpretation Comments Peripheral Smear (test code = 4273) PSMEAR [facility] [id number] 09:48:55 Test Item Value Reference Range Interpretation Comments POC sodium (test code = 140 mmol/L 135-148 AOD iSTAT SN: 2947-0) [id number]: [facility] at POC potassium (test code 4.2 mmol/L 3.5-5.0 = 6298-4) POC glucose (test code = 174 mg/dL 65-99 H 2339-0) POC hemoglobin (test 13.6 g/dL 14.0-18.0 L code = 718-7) POC hematocrit (test 40 % 41-51 L code = 4544-3) Lab Interpretation (test Abnormal code = 73192-9) Andrew RizoWmgkrwngeUPUT-TeV-1 (COVID-19) RNA [Presence] in Respiratory specimen by JOAQUIN with probe [id number] 23:58:40 Test Item Value Reference Range Interpretation Comments SARS-CoV-2 (COVID-19) RNA Not detected Not-Detected [Presence] in Respiratory specimen by JOAQUIN with probe detection (test code = 99149-7) ECG Pre/Post [id number] 18:13:30 Test Item Value Reference Range Interpretation Comments Ventricular rate (test 89 code = 253) Atrial rate (test code 89 = 255) ID interval (test code 140 = 266) QRSD interval (test 88 code = 260) QT interval (test code 346 = 264) QTC interval (test code 420 = 265) P axis 1 (test code = 38 267) QRS axis 1 (test code = 9 268) T wave axis (test code 38 = 270) EKG impression (test Normal sinus code = 273) rhythm-Possible Left atrial enlargement-Cannot rule out Anterior infarct , age undetermined-Abnormal ECG-No previous ECGs available-Electronical ly Signed By Markel Cabral MD (2013) on 03/13/2020 6:13:27 PM Andrew ThiagozabrinaXR Chest 2 [id number] 11:23:18Hm Interface, Radiology Results Incoming - 03/13/2020 11:26 AM CST EXAMINATION: XR CHEST 2 VWCLINICAL HISTORY: Z01.818 Encounter for other preprocedural examination, Routine CXR pre-op high-risk surgery, Pre OP TestingCOMPARISON: NoneIMPRESSION:No active disease in the chest.There is a right jugular dialysis catheter extending to the SVC.Lungs are clear. Cardiomediastinal silhouette is within normal limits.No effusion or pneumothorax noted.Visualized osseous structures are intact.[facility]-[id number] Worship
[2020-11-05] MEDS ORDERED: ACETAMINOPHEN 500 MG TAB ONE (15:56)
--- NOTE | 2020-11-05 16:10 | RAD REPORT ---
EXAM DESCRIPTION: RAD - Chest Pa And Lat (2 Views) - 11/05/2020 3:56 pm CLINICAL HISTORY: COUGH, shortness of breath COMPARISON: Portable September 2018, two view September 2018 TECHNIQUE: Frontal and lateral views of the chest were obtained. FINDINGS: The lungs are underinflated. Lateral view has motion degradation. Left base lung markings are increased over the comparison imaging. No failure or volume overload. Heart size is normal and central vasculature is within normal limits. No pleural effusion or pneumo thorax seen. No acute bony finding noted. No aortic abnormality. IMPRESSION: Increased opacification left lung base questionable for early pneumonia. Correlation is needed with any corresponding clinical or laboratory findings.
[2020-11-05] MEDS ORDERED: HYDROCODONE/CHLORPHEN 5 ML/OSYR ONE (16:47)
[2020-11-05 16:51] LABS: Absolute Lymphocytes (CBC) 0.8 K/uL (0.7-4.9); Basophils % 0.8 % (0-1.3); Hematocrit 30.8 % (39.6-49.0); Lymphocytes % 11.4 % (15.3-44.8); MPV 7.7 fL (7.6-11.3); RBC Red Blood Cell Count 3.24 M/uL (4.33-5.43)
[2020-11-05 17:05] LABS: Potassium 4.3 mmol/L (3.5-5.1)
[2020-11-05] MEDS ORDERED: AZITHROMYCIN IV 500 MG in NA CHLORIDE 0.9% 250 ML IVPB ONE (19:00)
[2020-11-05] MEDS ORDERED: CEFTRIAXONE/SWI 1gm 1 GM/10 ML SYR ONE (19:03)
[2020-11-05] MEDS ORDERED: NA CHLORIDE 0.9% 50 ML ONE (19:03)
--- NOTE | 2020-11-05 19:31 | P.HP ---
Certification for Inpatient Patient admitted to: Inpatient With expected LOS: >2 Midnights Patient will require the following post-hospital care: None Practitioner: I am a practitioner with admitting privileges, knowledge of patient current condition, hospital course, and medical plan of care. Services: Services provided to patient in accordance with Admission requirements found in Title 42 Section 412.3 of the Code of Federal Regulations Patient History Date of Service: 11/05/20 Primary Care Provider: Mirna Reason for admission: pneumonia History of Present Illness: Mr. Acosta is a 45 yo M with multiple myeloma s/p stem cell transplant July 2019, ESRD on HD MWF, CHF, HTN, and DM here today for SOB and cough. He was hypo xic to 89% on room air and initial T103F. Beginning , he thought he was having allergy symptoms but he continued to get worse with no relief with OTC sinus, allergy or cold medications. He reports cough productive of yellow sputum, fever, chills, pleuritic pain. Denies chest pain and hemoptysis. He last received dialysis on because he went out of town on Thursday with family. He did not received dialysis today either. CXR shows increased opacification in left lung base questionable for early pneumonia. Ddimer 1115. BUN 67, Cr 4.39, GFR 18. Glu 148. Procal 0.62. Allergies No Known Allergies Allergy (Verified 12/28/17 03:47) Home Medications: Aspirin [Aspirin EC 81 MG] 81 mg PO DAILY #90 tablet. 05/05/17 Bumetanide [Bumex*] 4 mg PO BID 08/02/18 Nitroglycerin [Nitrostat*] 0.4 mg SL 1X 08/02/18 Ondansetron [Zofran (Odt)*] 4 mg PO Q8H PRN 08/02/18 Pantoprazole [Protonix Tab*] 40 mg PO DAILY 08/02/18 Promethazine HCl 25 mg PO Q4H PRN 08/02/18 allopurinoL [Zyloprim*] 100 mg PO DAILY 08/02/18 carvediloL [Coreg*] 25 mg PO BID 08/02/18 Amlodipine [Norvasc*] 09/19/18 Lenalidomide [Revlimid] 1 tab PO SEECOM 09/19/18 Valacyclovir [Valtrex*] 500 mg PO DAILY 09/19/18 Valcade SEECOM 09/19/18 dexAMETHasone [Decadron*] 4 mg PO SEECOM 09/19/18 Albuterol Sulfate [Proair Hfa] 2 puff IH TID PRN #1 hfa.aer.ad 09/20/18 Benzonatate [Tessalon Perle] 100 mg PO TID PRN #10 cap 09/20/18 levoFLOXacin [Levaquin*] 500 mg PO DAILY #7 tab 09/20/18 - Past Medical/Surgical History Diabetic: Yes -: Hypertension -: Diabetes mellitus type 2 -: Depression -: Anxiety -: multiple myeloma s/p stem cell transplant 07/2020 -: ESRD on HD MWF -: CHF -: Right knee surgery -: left arm AV fistula Psychosocial/ Personal History: The patient is . He has 4 children. 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 - Family History Mother -: Diabetes Notes: diverticulitis Father -: Diabetes - Social History Smoking Status: Never smoker Alcohol use: Yes CD- Drugs: No Caffeine use: Yes Place of Residence: Home Review of Systems General: Fever, Chills, Sweats, Malaise, As per HPI Eyes: Unremarkable ENT: Unremarkable Respiratory: Cough, Shortness of Breath, SOB with Excertion, Pleuritic Pain, Sputum, Wheezing, As per HPI Cardiovascular: Unremarkable Gastrointestinal: Unremarkable Genitourinary: Unremarkable Musculoskeletal: Unremarkable Integumentary: Unremarkable Neurological: Unremarkable Lymphatics: Unremarkable Physical Examination - Physical Exam General: Alert, In no apparent distress, Oriented x3, Cooperative HEENT: Atraumatic, PERRLA, Mucous membr. moist/pink, EOMI, Sclerae nonicteric Neck: Supple, 2+ carotid pulse no bruit, No LAD, Without JVD or thyroid abnormality Respiratory: Diminished, Expiratory wheezes, Rhonchi/gurgles Cardiovascular: No edema, Regular rate/rhythm, Normal S1 S2 Gastrointestinal: Normal bowel sounds, No tenderness Musculoskeletal: No tenderness Integumentary: No rashes Neurological: Normal speech, Normal strength at 5/5 x4 extr, Normal tone, Normal affect Lymphatics: No axilla or inguinal lymphadenopathy - Studies Laboratory Data (last 24 hrs) 11/05/20 16:35: Sodium 141, Potassium 4.3, BUN 67 H, Creatinine 4.39 H, Glucose 148 H 07/26/21 16:35: WBC 7.00, Hgb 10.3 L, Hct 30.8 L, Plt Count 196 Microbiology Data (last 24 hrs): 11/05/20 15:42 Nasopharnyx Influenza Type A Antigen Screen - Final 11/05/20 15:42 Nasopharnyx Influenza Type B Antigen Screen - Final Assessment and Plan - Problems (Diagnosis) (1) ESRD (end stage renal disease) on dialysis Current Visit: Yes Status: Chronic (2) CHF (congestive heart failure) Current Visit: Yes Status: Chronic Qualifiers: Heart failure type: unspecified Heart failure chronicity: chronic Qualified Code(s): I50.9 - Heart failure, unspecified (3) Anemia Onset Date: 12/28/17 Current Visit: No Status: Chronic Qualifiers: Anemia type: unspecified type Qualified Code(s): D64.9 - Anemia, unspecified (4) Pneumonia Current Visit: No Status: Acute Qualifiers: Pneumonia type: due to unspecified organism Laterality: left Lung location: lower lobe of lung Qualified Code(s): J18.9 - Pneumonia, unspecified organism (5) Diabetes mellitus Onset Date: 05/05/17 Current Visit: No Status: Chronic Qualifiers: Diabetes mellitus type: type 2 Diabetes mellitus [facility] insulin use: with [facility] use Diabetes mellitus complication status: with kidney complications Diabetes mellitus complication detail: with chronic kidney disease Chronic kidney disease stage: on chronic dialysis Qualified Code(s): E11.22 - Type 2 diabetes mellitus with diabetic chronic kidney disease; N18.6 - End stage renal disease; 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; Z99.2 - Dependence on renal dialysis (6) Hypertension Onset Date: 05/05/17 Current Visit: No Status: Chronic Qualifiers: Hypertension type: primary hypertension Qualified Code(s): I10 - Essential (primary) hypertension (7) Multiple myeloma Current Visit: No Status: Chronic Qualifiers: Multiple myeloma remission status: unspecified Qualified Code(s): C90.00 - Multiple myeloma not having achieved remission (8) Obstructive sleep apnea Current Visit: No Status: Chronic - Plan consult nephrology for dialysis, consult pulmonology, consult RT 1x dose of IV vancomycin and merrem O2 and breathing treatments as needed, ABG pending, VQ scan in the AM blood cultures and sputum cultures pending tylenol for T>100 sliding scale insulin and accuchecks, A1c pending CPAP at Bedtime dietitian consulted, on renal diet reconcile and continue home medications DVT ppx, on telemetry Discharge Plan: Home Plan to discharge in: 48 Hours - Advance Directives Does patient have a Living Will: No Does patient have a Durable POA for Healthcare: No - Code Status/Comfort Care Code Status Assessed: Yes (full code ) Critical Care: No Time Spent Managing Pts Care (In Minutes): 70
[2020-11-05] MEDS ORDERED: ONDANSETRON 4 MG/2 ML VIAL IV PRN (21:15)
[2020-11-05] MEDS ORDERED: ACETAMINOPHEN 500 MG TAB PO PRN (21:15)
[2020-11-05] MEDS ORDERED: Pharmacy Consult 1 EA XX PRN (21:15)
[2020-11-05] MEDS ORDERED: Meropenem 1 GM/100 ML BAG IV ONE (21:15)
[2020-11-05] MEDS ORDERED: HYDRALAZINE HCL 20 MG/ML VIAL IV PRN (21:15)
[2020-11-05] MEDS ORDERED: VANCOMYCIN/NS 1 gm 1 GM/250 ML BAG IV ONE (21:30)
[2020-11-05] MEDS ORDERED: MANNITOL 25% 12.5 GM/50 ML VIAL IV PRN (21:58)
[2020-11-05] MEDS ORDERED: NA CHLORIDE 0.9% 1,000 ML IV PRN (21:58)
[2020-11-05] MEDS ORDERED: ALBUMIN HUMAN 25% 50 ML IV SCH (22:00)
[2020-11-05] MEDS: INSULIN -REGULAR HUMAN 50 UNIT/0.5 ML ML SQ SCH (22:17)
[2020-11-05] MEDS: ALBUTEROL 2.5 MG/3 ML NEB SOL NEB SCH (22:35)
[2020-11-05] MEDS: IPRATROPIUM BROM 0.5MG/2.5ML NEB SCH (22:35)
[2020-11-05] MEDS ORDERED: NA CHLORIDE 0.9% 250 ML ONE (22:43)
[2020-11-05] MEDS ORDERED: NA CHLORIDE 0.9% 100 ML ONE (22:44)
[2020-11-05] MEDS ORDERED: VANCOMYCIN 1 GM/VIAL ONE (22:45)
[2020-11-05] MEDS ORDERED: Meropenem 1000 MG/VIAL IV ONE (23:47)
[2020-11-06 00:39] LABS: Arterial Blood Carboxyhemoglob 1.2 % (0-1.5); Blood Gas Oxyhemoglobin 88.3 % (94-97); Blood O2 Saturation 90.5 % (92-98.5)
[2020-11-06] MEDS: HEPARIN 5000 UNIT/ML 1 ML VIAL SQ SCH ×3 (01:06→16:29)
[2020-11-06] MEDS: ALBUTEROL 2.5 MG/3 ML NEB SOL NEB SCH ×4 (02:07→20:00)
[2020-11-06] MEDS: IPRATROPIUM BROM 0.5MG/2.5ML NEB SCH ×4 (02:07→22:00)
[2020-11-06] MEDS: BENZONATATE 100 MG CAP PO PRN (03:53)
[2020-11-06 05:10] LABS: Absolute Lymphocytes (CBC) 0.8 K/uL (0.7-4.9); Basophils % 0.4 % (0-1.3); Hematocrit 27.2 % (39.6-49.0); Lymphocytes % 9.9 % (15.3-44.8); RBC Red Blood Cell Count 2.84 M/uL (4.33-5.43)
[2020-11-06 05:33] LABS: Albumin 3.1 g/dL (3.4-5.0); Bilirubin Total 0.4 mg/dL (0.2-1.0); Phosphorus 4.4 mg/dL (2.5-4.9); Potassium 4.3 mmol/L (3.5-5.1); Protein, Total 6.7 g/dL (6.4-8.2); Thyroid Stimulating Hormone 1.24 uIU/mL (0.360-3.740)
[2020-11-06] MEDS: INSULIN -REGULAR HUMAN 50 UNIT/0.5 ML ML SQ SCH ×4 (07:30→21:00)
[2020-11-06] MEDS ORDERED: VANCOMYCIN/NS 1 gm 1 GM/250 ML BAG IV SCH (07:30)
--- NOTE | 2020-11-06 09:53 | RAD REPORT ---
EXAM DESCRIPTION: NM - Vent Perfusion VQ Scan - 11/06/2020 9:33 am CLINICAL HISTORY: SOB, elevated DD COMPARISON: Two view chest November 05 TECHNIQUE: The patient was administered 30.2 mCi Xenon 133 gas with posterior projection inspiration , equilibrium, and washout views obtained. The patient was then administered 7.4 mCi Tc-99m MAA label ed RBCs followed by standard 8 view protocol. FINDINGS: There is good distribution of the Xenon with no ventilation defects identified. Minimal di ffuse air trapping seen. Perfusion images show no defects suspicious for pulmonary emboli. No correlate for the possible left base opacification seen on plain film. IMPRESSION: Normal V/Q Scan.
--- NOTE | 2020-11-06 17:32 | ER ---
Nurse's Notes [facility] Name: Fredy Acosta Age: 45 yrs Sex: Male : 1975 Arrival Date: 11/05/2020 Time: 14:23 Bed 15 Private MD: Diagnosis: Pneumonia, unspecified organism;Hypoxia Presentation: 11/05 14:59 Chief complaint:. kg 14:59 Acuity: NGA 3 kg 15:22 Chief complaint: Patient states: Cough, Congestion, SOB, itchy eyes. Coronavirus kg screen: Client denies travel out of the [place] in the last 14 days. At this time, unable to obtain information related to travel outside the [place] Client presents with at least one sign or symptom that may indicate coronavirus-19. Standard/surgical mask placed on the client. Provider contacted for isolation considerations. Ebola Screen: Patient negative for fever greater than or equal to 101.5 degrees Fahrenheit, and additional compatible Ebola Virus Disease symptoms Patient denies exposure to infectious person. Patient denies travel to an Ebola-affected area in the 21 days before illness onset. Initial Sepsis Screen: Does the patient meet any 2 criteria? HR > 90 bpm. Yes Does the patient have a suspected source of infection? Yes: Productive cough/pneumonia. Risk Assessment: Do you want to hurt yourself or someone else? Patient reports no desire to harm self or others. Onset of symptoms was November 01, 2020. 15:22 Method Of Arrival: Ambulatory kg Triage Assessment: 15:26 General: Appears uncomfortable, Behavior is calm, cooperative, appropriate for age, kg quiet. Pain: Complains of pain in Chest Pain radiates to Generalized Pain currently is 10 out of 10 on a pain scale. at worst was 10 out of 10 on a pain scale. level that patient reports is acceptable is 5 out of 10 on a pain scale. Quality of pain is described as aching, Pain began 11/01. Historical: - Allergies: 15: No Known Allergies; kg - Home Meds: 15: insulin pen injection [Active]; gabapentin Oral [Active]; aspirin 81 mg Oral chew 1 tab kg once daily [Active]; - PMHx: 15: multiple myeloma; Hypertension; Diabetes - IDDM; Anxiety; Chronic disease- HD; M/W/F; kg - PSHx: 15: Fistula- HD; right knee sx; stemcell transplant - 07/2020; kg - Immunization history:: Adult Immunizations not up to date, Client reports having NOT received the Covid vaccine. - Social history:: Smoking status: Patient denies any tobacco usage or history of. Screenin:59 Abuse screen: Denies threats or abuse. Denies injuries from another. Nutritional kg screening: No deficits noted. Tuberculosis screening: No symptoms or risk factors identified. Fall Risk None identified. Fall in past 12 months (25 points). No secondary diagnosis (0 pts). No IV (0 pts). Ambulatory Aid- None/Bed Rest/Nurse Assist (0 pts). Gait- Impaired (20 pts.). Mental Status- Oriented to own ability (0 pts). Total Alvarado Fall Scale indicates No Risk (0-24 pts). Assessment: 16:45 General: Appears in no apparent distress. obese, well groomed, Behavior is calm, ph cooperative, appropriate for age, quiet, Reports chills for fever for > 3 days. Pain: Complains of pain in back and chest. Neuro: Level of Consciousness is awake, obeys commands, Oriented to person, place, time, situation. Cardiovascular: Capillary refill < 3 seconds in bilateral fingers. Respiratory: Reports shortness of breath at rest cough that is productive, pain with cough Airway is patent Respiratory effort is even, unlabored, Respiratory pattern is regular. GI: No signs and/or symptoms were reported involving the gastrointestinal system. Derm: Skin is intact, Skin is pink, warm \T\ dry. Musculoskeletal: Circulation, motion, and sensation intact. Range of motion: intact in all extremities. 18:00 Reassessment: Patient appears in no apparent distress at this time. Patient and/or ph family updated on plan of care and expected duration. Pain level reassessed. Patient is alert, oriented x 3, equal unlabored respirations, skin warm/dry/pink. Pt noted to desaturate when falling asleep, Spo2 down to 85% RA, reports that he has sleep apnea, placed on 2L NC. 20:13 General: report called to rn. ak2 Vital Signs: 14:57 Pulse 123; Pulse Ox 95% on R/A; kg 15:22 Pulse 101; Resp 21; Temp 102.9(O); Pulse Ox 97% on R/A; Weight 117 kg; Height 5 ft. 7 kg in. (170.18 cm); Pain 9/10; 15:22 BP 95 / 64; kg 16:48 Pulse 95; Resp 20; Pulse Ox 97% on 2 lpm NC; ph 18:00 BP 101 / 65; Pulse 97; Resp 16; Pulse Ox 95% on 2 lpm NC; ph 19:10 BP 106 / 66; Pulse 92; Resp 18; Temp 98.9; Pulse Ox 100% on 2 lpm NC; ph 15:22 Body Mass Index 40.40 (117.00 kg, 170.18 cm) kg ED Course: 14:23 Patient arrived in ED. rg4 14:59 Patient has correct armband on for positive identification. kg 15:00 Triage completed. kg 15:30 Arm band placed on left wrist. kg 15:55 XRAY Chest Pa And Lat (2 Views) In Process Unspecified. EDMS 16:04 Anita Staples FNP-C is PHCP. kb 16:04 Ricky Lee MD is Attending Physician. kb 16:13 Esperanza Rivers, RN is Primary Nurse. ph 16:45 Initial lab(s) drawn, by me, sent to lab. Inserted saline lock: 20 gauge in right ph antecubital area, using aseptic technique. Blood collected. 17:51 John Cronin MD is Hospitalizing Provider. kb Administered Medications: 15:36 Drug: Tylenol 1000 mg Route: PO; kg 17:36 Follow up: Response: No adverse reaction ph 16:45 Drug: Tussionex Pennkinetic ER (chlorpheniramine-hydrocodone) Suspension 5 ml Route: PO;ph 17:36 Follow up: Response: No adverse reaction ph 19:02 Drug: Rocephin (cefTRIAXone) 1 grams Route: IV; Rate: calculated rate; Site: right ph antecubital; 19:10 Follow up: Response: No adverse reaction; IV Status: Completed infusion ph 19:15 Drug: Zithromax (azithromycin) 500 mg Route: IVPB; Infused Over: 1 hrs; Site: left ak2 antecubital; Outcome: 17:51 Decision to Hospitalize by Provider. kb 21:19 Patient left the ED. mw2 Signatures: Dispatcher [employer] EDMS Anita Staples FNP-C AGRICULTURAL RESEARCHER-Esperanza Myers, RN RN ph Lizzy Can rg4 Emma Swanson mw2 Caitlin Amin RN RN kg Aubrey Hidalgo ak2 Corrections: (The following items were deleted from the chart) 14:59 14:57 Pulse 159bpm; Pulse Ox 95% RA; kg kg 19:13 19:12 Reassessment: Patient appears in no apparent distress at this time. Patient ph and/or family updated on plan of care and expected duration. Pain level reassessed. Patient is alert, oriented x 3, equal unlabored respirations, skin warm/dry/pink. Patient denies pain at this time. Patient states feeling better. ph
--- NOTE | 2020-11-06 17:32 | EDPHYS ---
Physician Documentation [facility] Name: Fredy Acosta Age: 45 yrs Sex: Male : 1975 Arrival Date: 11/05/2020 Time: 14:23 Bed 15 Private MD: ED Physician Ricky Lee HPI: 11/05 17:48 This 45 yrs old Black Male presents to ER via Ambulatory with complaints of Low O2. kb 17:49 The patient has not experienced similar symptoms in the past. The patient has not kb recently seen a physician. 17:49 The patient or guardian reports cough, that is intermittent, described as mild, with no kb sputum, difficulty breathing, flu symptoms, low-grade fever. Onset: The symptoms/episode began/occurred 4 day(s) ago. Severity of symptoms: At their worst the symptoms were moderate, in the emergency department the symptoms are unchanged. Modifying factors: The symptoms are alleviated by nothing, the symptoms are aggravated by nothing. Associated signs and symptoms: Pertinent positives: fever, rhinorrhea, Pertinent negatives: chest pain, diarrhea, ear ache, nausea, sore throat, vomiting. Patient reports cough congestion fever shortness of breath and malaise for 4 days. Historical: - Allergies: 15: No Known Allergies; kg - Home Meds: 15:26 insulin pen injection [Active]; gabapentin Oral [Active]; aspirin 81 mg Oral chew 1 tab kg once daily [Active]; - PMHx: 15:26 multiple myeloma; Hypertension; Diabetes - IDDM; Anxiety; Chronic disease- HD; M/W/F; kg - PSHx: 15:26 Fistula- HD; right knee sx; stemcell transplant - 07/2020; kg - Immunization history:: Adult Immunizations not up to date, Client reports having NOT received the Covid vaccine. - Social history:: Smoking status: Patient denies any tobacco usage or history of. ROS: 17:45 Abdomen/GI: Negative for abdominal pain, nausea, vomiting, diarrhea, and constipation. kb 17:45 Constitutional: Positive for body aches, chills, fatigue, fever, malaise. 17:45 Respiratory: Positive for cough, dyspnea on exertion, shortness of breath, Negative for hemoptysis, orthopnea, pleurisy, sputum production, wheezing. 17:45 All other systems are negative. Exam: 17:47 Constitutional: This is a well developed, well nourished patient who is awake, alert, kb and in no acute distress. Head/Face: Normocephalic, atraumatic. ENT: Moist Mucous membranes Cardiovascular: Regular rate and rhythm with a normal S1 and S2. No gallops, murmurs, or rubs. No pulse deficits. Abdomen/GI: Soft, non-tender. No distention Skin: Warm, dry with normal turgor. Normal color. MS/ Extremity: Pulses equal, no cyanosis. Neurovascular intact. Full, normal range of motion. Neuro: Awake and alert, GCS 15, oriented to person, place, time, and situation. Moves all extremities. Normal gait. Psych: Awake, alert, with orientation to person, place and time. Behavior, mood, and affect are within normal limits. 17:47 Respiratory: mild respiratory distress is noted, Respirations: labored breathing, that is mild, Breath sounds: decreased breath sounds, that are mild, are located in both bases. Vital Signs: 14:57 Pulse 123; Pulse Ox 95% on R/A; kg 15:22 Pulse 101; Resp 21; Temp 102.9(O); Pulse Ox 97% on R/A; Weight 117 kg; Height 5 ft. 7 kg in. (170.18 cm); Pain 9/10; 15:22 BP 95 / 64; kg 16:48 Pulse 95; Resp 20; Pulse Ox 97% on 2 lpm NC; ph 18:00 BP 101 / 65; Pulse 97; Resp 16; Pulse Ox 95% on 2 lpm NC; ph 19:10 BP 106 / 66; Pulse 92; Resp 18; Temp 98.9; Pulse Ox 100% on 2 lpm NC; ph 15:22 Body Mass Index 40.40 (117.00 kg, 170.18 cm) kg MDM: 16:04 Patient medically screened. kb 17:25 Data reviewed: vital signs, nurses notes. Data interpreted: Pulse oximetry: on room air kb is 89 %. Interpretation: hypoxia. Counseling: I had a detailed discussion with the patient and/or guardian regarding: the historical points, exam findings, and any diagnostic results supporting the discharge/admit diagnosis, lab results, radiology results, the need for further work-up and treatment in the hospital. 17:47 Physician consultation: John Cronin MD was contacted at 17:47, regarding admission, kb to the telemetry unit. patient's condition, and will see patient in ED. 11/05 15:22 Order name: Flu; Complete Time: 16:14 kg 11/05 16:11 Order name: CBC with Diff; Complete Time: 16:52 kb 11/05 16:11 Order name: Basic Metabolic Panel; Complete Time: 17:06 kb 11/05 16:11 Order name: D-Dimer; Complete Time: 17:14 kb 11/05 16:11 Order name: Blood Culture Adult (2) kb 11/05 15:22 Order name: XRAY Chest Pa And Lat (2 Views); Complete Time: 16:12 kg 11/05 16:13 Order name: Lactate; Complete Time: 17:13 kb 11/05 16:13 Order name: Procalcitonin; Complete Time: 17:41 kb 11/05 17:36 Order name: SARS-COV-2 RT PCR; Complete Time: 17:41 EDMS 11/05 16:11 Order name: IV Start; Complete Time: 16:49 kb 11/05 19:06 Order name: CONS Physician Consult EDMS Administered Medications: 15:36 Drug: Tylenol 1000 mg Route: PO; kg 17:36 Follow up: Response: No adverse reaction ph 16:45 Drug: Tussionex Pennkinetic ER (chlorpheniramine-hydrocodone) Suspension 5 ml Route: PO;ph 17:36 Follow up: Response: No adverse reaction ph 19:02 Drug: Rocephin (cefTRIAXone) 1 grams Route: IV; Rate: calculated rate; Site: right ph antecubital; 19:10 Follow up: Response: No adverse reaction; IV Status: Completed infusion ph 19:15 Drug: Zithromax (azithromycin) 500 mg Route: IVPB; Infused Over: 1 hrs; Site: left ak2 antecubital; Disposition: 11/06 06:03 Co-signature as Attending Physician, Ricky Lee MD I agree with the assessment and rn plan of care. Attestation: The patient's history, exam findings, diagnostics, and a summary of any interventions or procedures was reviewed in detail with Anita FOSTER. Disposition Summary: 11/05/20 17:51 Hospitalization Ordered Hospitalization Status: Inpatient Admission janelle Provider: John Cronin Location: Telemetry/MedSurg (Inpatient) kb Condition: Stable kb Problem: new kb Symptoms: are unchanged kb Bed/Room Type: Standard kb Room Assignment: 221(11/05/20 19:46) Diagnosis - Pneumonia, unspecified organism kb - Hypoxia kb Forms: - Medication Reconciliation Form kb - SBAR form kb Signatures: Dispatcher [employer] EDIA Anita Staples FNP-C FNP-Ricky Hernandez MD MD rn Hall, Patricia, RN RN Clare Can RN RN Caitlin Jeffers RN RN Aubrey Hidalgo Corrections: (The following items were deleted from the chart) 11/05 16:44 16:33 CORONAVIRUS+MR.LAB.BRZ ordered. EDIA EDMS 19:46 17:51 kb cg
[2020-11-06] MEDS: HYDROCODONE/APAP 5/325 MG TAB PO PRN (17:40)
--- NOTE | 2020-11-06 17:41 | P.CNS ---
Date of Consult: 11/06/20 Reason for Consult: ESRD Requesting Physician: ml cheng Primary Care Provider: Dr. Bradley Chief Complaint: Pneumonia History of Present Illness: 45 yo BM ESRD, HTN presented to the ER with several days of moderate, progressive cough and congestion with associated malaise and dyspnea. He was in [place] for the weekend. Mr. Acosta is a 45 yo M with multiple myeloma s/p stem cell transplant July, ESRD on HD MWF, CHF, HTN, and DM here today for SOB and cough. He was hypoxic to 89% on room air and initial T103F. Beginning , he thought he was having allergy symptoms but he continued to get worse with no relief with OTC sinus, allergy or cold medications. He reports cough productive of yellow sputum, fever, chills, pleuritic pain. Denies chest pain and hemoptysis. He last received dialysis on because he went out of town on Thursday with family. He did not received dialysis today either. Allergies No Known Allergies Allergy (Verified 12/28/17 03:47) Home medications list reviewed: Yes Home Medications: Aspirin [Aspirin EC 81 MG] 81 mg PO DAILY #90 tablet. 05/05/17 Nitroglycerin [Nitrostat*] 0.4 mg SL 1X PRN 08/02/18 Pantoprazole [Protonix Tab*] 40 mg PO DAILY 08/02/18 carvediloL [Coreg*] 25 mg PO BID 08/02/18 Valacyclovir [Valtrex*] 500 mg PO DAILY 09/19/18 Doxazosin [Cardura*] 1 tab PO BEDTIME 11/06/20 Hydrocodone Bit/Acetaminophen [Hydrocodon-Acetaminophen 5-325] 1 tab PO BID PRN 11/06/20 Insulin Degludec [Tresiba Flextouch U-200] 100 unit SQ DAILY 11/06/20 Pregabalin [Lyrica*] 1 cap PO BID 11/06/20 Sildenafil Citrate 1 tab PO SEECOM 11/06/20 - Past Medical/Surgical History Diabetic: Yes -: Hypertension -: Diabetes mellitus type 2 -: Depression -: Anxiety -: multiple myeloma s/p stem cell transplant 07/2020 -: ESRD on HD MWF -: CHF -: Right knee surgery -: left arm AV fistula Psychosocial/ Personal History: The patient is . He has 4 children. 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 - Family History Mother Medical History: Diabetes Notes: diverticulitis Father Medical History: Diabetes - Social History Smoking Status: Unknown if ever smoked Alcohol use: No CD- Drugs: Yes Caffeine use: No Place of Residence: Home Review of Systems 10-point ROS is otherwise unremarkable General: Weakness, Malaise Respiratory: Cough, Shortness of Breath Cardiovascular: Edema Neurological: Weakness Physical Examination Temp Pulse Resp BP Pulse Ox 99.0 F 96 H 19 124/56 L 90 L 11/06/20 16:00 11/06/20 16:00 11/06/20 16:00 11/06/20 16:00 11/06/20 16:00 General: Oriented x3, Cooperative, Mild distress HEENT: Atraumatic Neck: Supple Respiratory: Expiratory wheezes, Rhonchi/gurgles Cardiovascular: Regular rate/rhythm, Edema Gastrointestinal: Soft and benign, Non-distended Musculoskeletal: No clubbing, No contractures Integumentary: No rashes, No cyanosis Neurological: Normal speech Blood work reviewed in the chart. Imagings Data: EXAM DESCRIPTION: RAD - Chest Pa And Lat (2 Views) - 11/05/2020 3:56 pm CLINICAL HISTORY: COUGH, shortness of breath COMPARISON: Portable September 2018, two view September 2018 TECHNIQUE: Frontal and lateral views of the chest were obtained. FINDINGS: The lungs are underinflated. Lateral view has motion degradation. Left base lung markings are increased over the comparison imaging. No failure or volume overload. Heart size is normal and central vasculature is within normal limits. No pleural effusion or pneumothorax seen. No acute bony finding noted. No aortic abnormality. IMPRESSION: Increased opacification left lung base questionable for early pneumonia. Correlation is needed with any corresponding clinical or laboratory findings. EXAM DESCRIPTION: NM - Vent Perfusion VQ Scan - 11/06/2020 9:33 am CLINICAL HISTORY: SOB, elevated DD COMPARISON: Two view chest November 05 TECHNIQUE: The patient was administered 30.2 mCi Xenon 133 gas with posterior projection inspiration, equilibrium, and washout views obtained. The patient was then administered 7.4 mCi Tc-99m MAA labeled RBCs followed by standard 8 view protocol. FINDINGS: There is good distribution of the Xenon with no ventilation defects identified. Minimal diffuse air trapping seen. Perfusion images show no defects suspicious for pulmonary emboli. No correlate for the possible left base opacification seen on plain film. IMPRESSION: Normal V/Q Scan. Conclusions/Impression: ESRD MWF -Acute HD today HTN with CKD/ CHF -Hold antihypertensive therapy and restart as indicated Diastolic CHF, A/C -Acute HD today with UF -Low sodium diet DM II with CKD, Polyneuropathy and Hyperglycemia -RISS Anemia in CKD -Give Retacrit ELAINE/ Secondary HyperPTH with Hypocalcemia -Start Cholecaliferol and Calcitriol MM sp a recent stem cell transplant at [facility] Immunocompromised Acute Respiratory Failure with hypoxia LLL PNA -Continue Vancomycin -Meropenem and Zithromax given Thank you kindly for the consultation.
--- NOTE | 2020-11-06 17:51 | P.PN ---
Subjective Date of Service: 11/06/20 Primary Care Provider: Dr. Bradley Chief Complaint: Pneumonia Patient reporting cough productive of greenish to brown sputum. He also reports shortness of breath. He is borderline hypoxic and currently on supplemental oxygen. No fever. Physical Examination - Vital Signs Temperature: 99.0 F Blood Pressure: 124/56 Pulse: 96 Respirations: 18 Pulse Ox (%): 90 - Physical Exam General: Alert, In no apparent distress, Oriented x3, Obese HEENT: Atraumatic, PERRLA, Mucous membr. moist/pink, EOMI, Sclerae nonicteric Neck: JVD not distended Respiratory: Diminished (Bilateral), Other (No crackles, no wheezes.) Cardiovascular: No edema, Normal S1 S2, Other (Tachycardia.) Gastrointestinal: Normal bowel sounds, Soft and benign, Non-distended, No tenderness Musculoskeletal: No swelling Integumentary: No rashes, No erythema Neurological: Normal speech, Normal strength at 5/5 x4 extr, Cranial nerves 3-12 intact - Studies Microbiology Data (last 24 hrs): 11/05/20 15:42 Nasopharnyx Influenza Type A Antigen Screen - Final 11/05/20 15:42 Nasopharnyx Influenza Type B Antigen Screen - Final Assessment And Plan - Current Problems (Diagnosis) (1) Pneumonia Current Visit: No Status: Acute Qualifiers: Pneumonia type: due to unspecified organism Laterality: left Lung location: lower lobe of lung Qualified Code(s): J18.9 - Pneumonia, unspecified organism (2) Stem cells transplant status Current Visit: Yes Status: Acute (3) Acute respiratory failure with hypoxia Current Visit: Yes Status: Acute (4) ESRD (end stage renal disease) on dialysis Current Visit: Yes Status: Chronic (5) Diabetes mellitus Onset Date: 05/05/17 Current Visit: No Status: Chronic Qualifiers: Diabetes mellitus type: type 2 Diabetes mellitus long-term insulin use: with exterminator use Diabetes mellitus complication status: with kidney complications Diabetes mellitus complication detail: with chronic kidney disease Chronic kidney disease stage: on chronic dialysis Qualified Code(s): E11.22 - Type 2 diabetes mellitus with diabetic chronic kidney disease; N18.6 - End stage renal disease; Z79.4 - rat exterminator (current) use of insulin; Z99.2 - Dependence on renal dialysis (6) Multiple myeloma Current Visit: No Status: Chronic Qualifiers: Multiple myeloma remission status: unspecified Qualified Code(s): C90.00 - Multiple myeloma not having achieved remission (7) Chronic anemia Current Visit: Yes Status: Acute - Plan Continue aggressive IV antibiotic therapy-IV meropenem and vancomycin. Follow cultures. Symptomatic treatment-Mucinex. Supplemental oxygen as needed. Monitor CBC and blood chemistry. Nephrology consulted for hemodialysis. Initiated transferred to [facility] given recent stem cell transplant status. Patient has opted for transfer. I spoke to Dr. Cohen. Awaiting bed for transfer. CPAP during sleep recommended. Insulin sliding scale. Hold longer acting insulin given hypoglycemia today. Physician Review: Patient Assessed, Agree with Above Assessment and Plan
[2020-11-06] MEDS: EPOETIN ALFA-EPBX 10,000 UNIT/ML VIAL SQ ONE ×2 (18:00→19:07)
[2020-11-06] MEDS ORDERED: NA CHLORIDE 0.9% 1,000 ML ONE (20:37)
[2020-11-06] MEDS ORDERED: METHYLPREDNISOLONE 125 MG INJ ONE (20:37)
--- NOTE | 2020-11-06 20:58 | P.CNS ---
Date of Consult: 11/06/20 (PT consented to TV) Reason for Consult: SOB hypoxemia Primary Care Provider: Dr. Bradley Chief Complaint: Hypoxemia History of Present Illness: Mr. Acosta is a 45 yo M with multiple myeloma s/p stem cell transplant July 2019/ AW SOB and fever/ S/pBMT for MM/ Does not smoke/ No prior HXof OAD/ productive cough/ OnDialysis Allergies No Known Allergies Allergy (Verified 12/28/17 03:47) Home Medications: Aspirin [Aspirin EC 81 MG] 81 mg PO DAILY #90 tablet. 05/05/17 Nitroglycerin [Nitrostat*] 0.4 mg SL 1X PRN 08/02/18 Pantoprazole [Protonix Tab*] 40 mg PO DAILY 08/02/18 carvediloL [Coreg*] 25 mg PO BID 08/02/18 Valacyclovir [Valtrex*] 500 mg PO DAILY 09/19/18 Doxazosin [Cardura*] 1 tab PO BEDTIME 11/06/20 Hydrocodone Bit/Acetaminophen [Hydrocodon-Acetaminophen 5-325] 1 tab PO BID PRN 11/06/20 Insulin Degludec [Tresiba Flextouch U-200] 100 unit SQ DAILY 11/06/20 Pregabalin [Lyrica*] 1 cap PO BID 11/06/20 Sildenafil Citrate 1 tab PO SEECOM 11/06/20 - Past Medical/Surgical History Diabetic: Yes -: Hypertension -: Diabetes mellitus type 2 -: Depression -: Anxiety -: multiple myeloma s/p stem cell transplant 07/2020 -: ESRD on HD MWF -: CHF -: Right knee surgery -: left arm AV fistula Psychosocial/ Personal History: The patient is . He has 4 children. 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 - Family History Mother Medical History: Diabetes Notes: diverticulitis Father Medical History: Diabetes - Social History Smoking Status: Unknown if ever smoked Alcohol use: No CD- Drugs: Yes Caffeine use: No Place of Residence: Home Review of Systems 10-point ROS is otherwise unremarkable General: Weakness Respiratory: Cough, Shortness of Breath Physical Examination Temp Pulse Resp BP Pulse Ox 99.0 F 96 H 18 124/56 L 90 L 11/06/20 19:04 11/06/20 19:04 11/06/20 19:04 11/06/20 19:04 11/06/20 19:04 - Problems (1) Respiratory failure Current Visit: Yes Status: Acute Plan: AW resp failure, SP Stem cell tx for MMyeloma/ Acute SOB. ESRD of dialysis/ Normal VQ/ hyposemia rel hypercapnea/ nild anemia/ Fever OA/DDx GVHD, Will hav eto verify Allogenic Vs autologous/ RO CMV, PCP,resp viruses/ To contact tertiary care center am/ CT and CXRY am/ Normal PFT Qualifiers: Chronicity: acute
[2020-11-06] MEDS ORDERED: ALBUTEROL 2.5 MG/3 ML NEB SOL NEB PRN (21:20)
[2020-11-06] MEDS ORDERED: Pharmacy Consult 1 EA XX PRN (23:04)
[2020-11-06 23:05] VITALS: O2SAT 97
[2020-11-06] MEDS ORDERED: POLYVINYL ALCOHOL 1.4% 15 ML EACH EYE PRN (23:06)
[2020-11-07] MEDS: HEPARIN 5000 UNIT/ML 1 ML VIAL SQ SCH (00:16)
[2020-11-07] MEDS: HYDROCODONE/APAP 5/325 MG TAB PO PRN ×2 (00:31→06:37)
[2020-11-07] MEDS ORDERED: NA CHLORIDE 0.9% 100 ML ONE (00:33)
[2020-11-07] MEDS: BENZONATATE 100 MG CAP PO PRN (00:33)
[2020-11-07] MEDS ORDERED: Meropenem 1000 MG/VIAL IV ONE (00:33)
[2020-11-07] MEDS ORDERED: Meropenem 1 GM/100 ML BAG IV SCH (01:00)
[2020-11-07] MEDS: IPRATROPIUM BROM 0.5MG/2.5ML NEB SCH (01:50)
[2020-11-07 04:04] LABS: Absolute Lymphocytes (CBC) 0.6 K/uL (0.7-4.9); Basophils % 0.6 % (0-1.3); Hematocrit 26.8 % (39.6-49.0); Lymphocytes % 10.3 % (15.3-44.8); RBC Red Blood Cell Count 2.86 M/uL (4.33-5.43)
[2020-11-07 04:10] LABS: Potassium 3.9 mmol/L (3.5-5.1)
[2020-11-07 04:14] VITALS: BMI 40.8
[2020-11-07 06:10] VITALS: BP 110/63; TEMP 97.3
[2020-11-07] MEDS ORDERED: CALCITROL 0.25 MCG CAP PO SCH (09:00)
[2020-11-07] MEDS ORDERED: VITAMIN D 5,000 UNIT CAP PO SCH (09:00)
--- NOTE | 2020-11-07 18:47 | P.DS ---
Admission Date: 11/05/20 Discharge Date: 11/07/20 Primary Care Provider: Dr. Bradley Disposition: [facility] Discharge Condition: FAIR Reason for Admission: Hypoxemia - Problems (1) Pneumonia Status: Acute Qualifiers: Pneumonia type: due to unspecified organism Laterality: left Lung location: lower lobe of lung Qualified Code(s): J18.9 - Pneumonia, unspecified organism (2) Stem cells transplant status Status: Acute (3) Acute respiratory failure with hypoxia Status: Acute (4) ESRD (end stage renal disease) on dialysis Status: Chronic (5) Diabetes mellitus Onset Date: 05/05/17 Status: Chronic Qualifiers: Diabetes mellitus type: type 2 Diabetes mellitus mcc insulin use: with long term care pharmacist use Diabetes mellitus complication status: with kidney complications Diabetes mellitus complication detail: with chronic kidney disease Chronic kidney disease stage: on chronic dialysis Qualified Code(s): E11.22 - Type 2 diabetes mellitus with diabetic chronic kidney disease; N18.6 - End stage renal disease; Z79.4 - exterminator (current) use of insulin; Z99.2 - Dependence on renal dialysis (6) Multiple myeloma Status: Chronic Qualifiers: Multiple myeloma remission status: unspecified Qualified Code(s): C90.00 - Multiple myeloma not having achieved remission (7) Chronic anemia Status: Acute Brief History of Present Illness: 45 yo M with multiple myeloma s/p stem cell transplant July 2020, ESRD on HD MWF, CHF, HTN, and DM presented with SOB and cough. He was hypoxic to 89% on room air and initial temperature of 103F. He reported cough productive of yellow to brown sputum, fever, chills, pleuritic pain. He missed a couple of days of dialysis. CXR showed increased opacification in left lung base questionable for early pneumonia. Ddimer 1115. BUN 67, Cr 4.39, GFR 18. Glu 148. Procal 0.62. Patient admitted for further management. Hospital Course: Patient admitted to the medical floor and started on aggressive antibiotic therapy-IV meropenem and vancomycin. Patient needed CPAP briefly for hypoxia. He reports history of obstructive sleep apnea. Blood cultures yielded no growth over 24 hrs. Given his recent stem cell transplantation, general consensus was patient will benefit from transfer to [facility] under the care of his hematology oncologist. Patient also seen in consultation by pulmonary-Dr. Flores. His vitals are stable. Patient accepted for transfer. Vital Signs/Physical Exam: Temp Pulse Resp BP Pulse Ox 97.3 F 88 18 110/63 96 11/07/20 04:00 11/07/20 04:00 11/07/20 06:37 11/07/20 04:00 11/07/20 06:37 General: Alert, In no apparent distress, Oriented x3 HEENT: Mucous membr. moist/pink Neck: JVD not distended Respiratory: Clear to auscultation bilaterally, Normal air movement Cardiovascular: No edema, Regular rate/rhythm, Normal S1 S2 Gastrointestinal: Soft and benign, Non-distended, No tenderness Musculoskeletal: No swelling Integumentary: No rashes Neurological: Normal strength at 5/5 x4 extr Laboratory Data at Discharge: WBC 6.20 K/uL (4.3-10.9) D 11/07/20 03:15 Hgb 9.3 g/dL (13.6-17.9) L 11/07/20 03:15 Hct 26.8 % (39.6-49.0) L 11/07/20 03:15 Plt Count 190 K/uL (152-406) 11/07/20 03:15 Sodium 143 mmol/L (136-145) 11/07/20 03:15 Potassium 3.9 mmol/L (3.5-5.1) 11/07/20 03:15 BUN 37 mg/dL (7-18) H D 11/07/20 03:15 Creatinine 2.88 mg/dL (0.55-1.3) H D 11/07/20 03:15 Glucose 124 mg/dL (74-106) H 11/07/20 03:15 Phosphorus 4.4 mg/dL (2.5-4.9) 11/06/20 04:44 Magnesium 2.0 mg/dL (1.8-2.4) 11/06/20 04:44 Total Bilirubin 0.4 mg/dL (0.2-1.0) 11/06/20 04:44 AST 27 U/L (15-37) 11/06/20 04:44 ALT 18 U/L (12-78) 11/06/20 04:44 Alkaline Phosphatase 44 U/L (45-117) L 11/06/20 04:44 Triglycerides 114 mg/dL (<150) 11/06/20 04:44 Cholesterol 129 mg/dL (<200) 11/06/20 04:44 HDL Cholesterol 33 mg/dL (40-60) L 11/06/20 04:44 Cholesterol/HDL Ratio 3.91 11/06/20 04:44 Home Medications: Aspirin [Aspirin EC 81 MG] 81 mg PO DAILY #90 tablet. 05/05/17 Nitroglycerin [Nitrostat*] 0.4 mg SL 1X PRN 08/02/18 Pantoprazole [Protonix Tab*] 40 mg PO DAILY 08/02/18 carvediloL [Coreg*] 25 mg PO BID 08/02/18 Valacyclovir [Valtrex*] 500 mg PO DAILY 09/19/18 Doxazosin [Cardura*] 1 tab PO BEDTIME 11/06/20 Hydrocodone Bit/Acetaminophen [Hydrocodon-Acetaminophen 5-325] 1 tab PO BID PRN 11/06/20 Insulin Degludec [Tresiba Flextouch U-200] 100 unit SQ DAILY 11/06/20 Pregabalin [Lyrica*] 1 cap PO BID 11/06/20 Sildenafil Citrate 1 tab PO SEECOM 11/06/20 Followup: Tony Bradley MD [Primary Care Provider] - Time spent managing pt's care (in minutes): 33
[2020-11-12 19:32] LABS: HBsAG Nonreactive (Nonreactive)
== END 2020-11-07 06:49 | disposition short-term general hospital (02) | DRG 193 ==
LOC: ER 14:23 → ERHOLD 19:05 → 2ND 21:09
PROVIDERS: ADMIT Internal Medicine; ATTEND Internal Medicine
PROC: 5A1D70Z Performance of Urinary Filtration, Intermittent, Less than 6 Hours Per Day (ICD-10-PCS; principal; 2020-11-06)
DX: J18.9 Pneumonia, unspecified organism (principal); J96.01 Acute respiratory failure with hypoxia; N18.6 End stage renal disease; Z94.84 Stem cells transplant status; C90.00 Multiple myeloma not having achieved remission; I13.2 Hypertensive heart and chronic kidney disease with heart failure and with stage 5 chronic kidney disease, or end stage renal disease; I50.32 Chronic diastolic (congestive) heart failure; D64.9 Anemia, unspecified; E11.22 Type 2 diabetes mellitus with diabetic chronic kidney disease; Z99.2 Dependence on renal dialysis; Z79.4 Long term (current) use of insulin; Z20.822 Contact with and (suspected) exposure to COVID-19
CPT/HCPCS: 36415; 71046; 78582; 80048; 80053; 80061; 82805; 82947; 83036; 83605; 83735; 83880; 84100; 84145; 84439; 84443; 85025; 85379; 86317; 87040; 87340; 87804; 90935; 94660; 94760; 99284; A9540; A9558; J0456; J0696; J1644; J2185; J2930; J3370; J7030; J7050; Q5106; U0003